=== PATIENT | male | born 1965 | race Caucasian/White ===

== ENCOUNTER 2016-11-29 14:10 | Emergency (ER) | payer SELFPAY ==
--- NOTE | 2016-11-29 14:15 | ER Document Report ---
ED General - General Stated Complaint: STROKE SYMPTOMS Time Seen by Provider: 11/29/16 14:11 Mode of Arrival: Medic Information source: Patient Cannot obtain history due to: Altered mental status Notes: 51-year-old male presents with complaints of sudden onset right-sided deficits altered mental status nausea vomiting hypertension. Last known well approximately 2 hours ago, history of [place] - HPI Onset: Just prior to arrival Onset/Duration: Sudden Quality of pain: No pain Severity: Severe Pain Level: Denies Associated symptoms: Nausea, Vomiting, Weakness Exacerbated by: Denies Relieved by: Denies Similar symptoms previously: No Recently seen / treated by doctor: No - Related Data Allergies/Adverse Reactions: diphenhydramine HCl [From Benadryl] Allergy (Severe, Verified 05/05/16 16:38) altered mental status Past Medical History - Social History Smoking Status: Never Smoker Cigarette use (# per day): No Chew tobacco use (# tins/day): No Smoking Education Provided: No Family History: Reviewed & Not Pertinent Review of Systems - Review of Systems Notes: PHYSICAL EXAMINATION: GENERAL: Well-apaltered HEAD: Atraumatic, normocephalic. EYES: Pupils equal round and reactive to light, extraocular movements intact, sclera anicteric, conjunctiva are normal. ENT: Nares patent, oropharynx clear without exudates. Moist mucous membranes. NECK: Normal range of motion, supple without lymphadenopathy LUNGS: Breath sounds clear to auscultation bilaterally and equal. No wheezes rales or rhonchi. HEART: Regular rate and rhythm without murmurs ABDOMEN: Soft, nontender, nondistended abdomen. No guarding, no rebound. No masses appreciated. Musculoskeletal: right arm and leg defecit NEUROLOGICAL: NIH score per charting SKIN: Warm, Dry, normal turgor, no rashes or lesions noted. -: Yes ROS unobtainable due to patient's medical condition Physical Exam - Vital signs Vitals: Resp BP Pulse Ox 11 L 157/110 H 99 11/29/16 14:20 11/29/16 14:20 11/29/16 14:20 Course - Re-evaluation Re-evalutation: 11/29/16 14:53 Patient presents with obvious strokelike symptoms, he has complete right-sided deficit is obtunded, with 's permission after explaining risks and benefits of alteplase she would like the medication given and I believe this is appropriate 11/29/16 15:[address] Wyatt who will accept patent for transfer. 11/29/16 15:53 Dr Carroll neurology requests cta head neck 11/29/16 16:[address] Scottie sidhu her request patient just be sent over without a CTA , patient unfortunately is was already in CAT scan, 11/29/16 16:33 Helicopter crew has landed patient will be transported repeat NIH is 25 - Vital Signs Vital signs: Temp Pulse Resp BP Pulse Ox 85 16 138/92 H 99 11/29/16 15:45 11/29/16 15:45 11/29/16 15:45 11/29/16 15:45 - Laboratory Result Diagrams: 11/29/16 14:25 11/29/16 14:25 Laboratory results interpreted by me: 11/29/16 11/29/16 14:24 14:25 Glucose 142 H POC Glucose 142 H Creatine Kinase 173 H - Diagnostic Test Radiology reviewed: Image reviewed, Reports reviewed - EKG Interpretation by Me EKG shows normal: Sinus rhythm, [place], Intervals, QRS Complexes Critical Care Note - Critical Care Note Total time excluding time spent on procedures (mins): 88 Comments: 88 minutes of critical care time spent in direct contact evaluating and reevaluating the patient, treating symptoms, reviewing labs and studies and speaking with family and consultants excluding any procedures Discharge - Discharge Clinical Impression: Acute cerebrovascular accident (CVA) Condition: Critical Disposition: [facility] ED NIH Stroke Scale - NIH Stroke Scale When completed:: Before Alteplase *: 1. NIH scale should be completed with appropriate accompanying assessment tools. *: 2. The NIH should reflect what the patient is capable of doing and should not be coached by the clinician. 1a. Level of Consciousness: 0=Alert;keenly responsive -: 1=Drowsy -: 2=Obtunded -: 3=Coma/unresponsive or reflex to noxious stimuli. 1a. Responses: 2 1b. Orientation Questions: a. What month is it? -: b. How old are you? -: 0=Answers both questions correctly. -: 1=Answers one question correctly or patient is intubated or has orotracheal trauma. -: 2=Answers neither question correctly. 1b. Responses: 2 1c. Response to commands: a. Open and close eyes? -: b. Graining Operator and release hand? -: Credit is given despite weakness. Demonstration of task is permitted. Substitute command if hands cannot be used. -: 0=Performs both tasks correctly -: 1=Performs one task correctly -: 2=Performs neither task correctly 1c. Responses: 2 2. Gaze: Establish eye contact and instruct patient to "Follow my finger" -: 0=Normal -: 1=Partial gaze palsy. Gaze is abnormal in one or both eyes, but where forced deviation or total gaze paresis is not present. -: 2=Forced deviation or total gaze paresis. 2. Responses: 2 3. Visual Lam: Sees fingers in all four quadrants. -: 0=No visual loss. -: 1=Partial hemianopsia. -: 2=Complete hemianopsia. -: 3=Bilateral hemianopsia (including Cortical blindness) 3. Responses: 2 4. Facial Movement: Instruct patient to: -: a. Show me your teeth -: b. Raise your eyebrows -: c. Close your eyes -: d. Smile -: 0=Normal symmetrical movement -: 1=Minor paralysis (flattened nasolabial fold, asymmetry on smiling). -: 2=Partial paralysis (total or near total paralysis of lower face). -: 3=Complete paralysis of upper and lower face 4. Responses: 2 5. Motor functions (left arm): Alternate sides and extend each arm with palms down (90 degrees if sitting or 45 degrees for supine). -: 0=No drift;limb holds for full 10 seconds. -: 1=Drift; limb holds but drifts down before full 10 seconds, but does not hit bed. -: 2=Some effort against gravity; limb cannot get to or maintain position. -: 3=No effort against gravity; limb falls. -: 4=No movement. -: UN=Amputation, joint fusion, explain in comments. 5. Responses (left arm): 0 5. Motor Functions (right arm): Alternate sides and extend each arm with palms down (90 degrees if sitting or 45 degrees for supine). -: 0=No drift;limb holds for full 10 seconds. -: 1=Drift; limb holds but drifts down before full 10 seconds, but does not hit bed. -: 2=Some effort against gravity; limb cannot get to or maintain position. -: 3=No effort against gravity; limb falls. -: 4=No movement. -: UN=Amputation, joint fusion, explain in comments. 5. Responses (right arm): 4 6. Motor Functions (left leg): With patient lying supine, alternate sides and extend each leg (30 degrees always while supine). -: 0=No drift, leg holds position for full 5 seconds -: 1=Drift; leg falls before full 5 seconds but does not hit bed. -: 2=Some effort against gravity, leg falls to bed but some effort against gravity. -: 3=No effort against gravity, leg falls to bed immediately. -: 4=No movement. -: UN=Amputation, joint fusion; explain in comments. 6. Responses (left leg): 0 6. Motor Functions (right leg): With patient lying supine, alternate sides and extend each leg (30 degrees always while supine). -: 0=No drift, leg holds position for full 5 seconds -: 1=Drift; leg falls before full 5 seconds but does not hit bed. -: 2=Some effort against gravity, leg falls to bed but some effort against gravity. -: 3=No effort against gravity, leg falls to bed immediately. -: 4=No movement. -: UN=Amputation, joint fusion; explain in comments. 6. Responses (right leg): 4 7. Limb Ataxia: With eyes open instruct patient to: -: a. "Touch your finger to your nose". -: b. "Touch your heel to your high" -: 0=Absent -: 1=Present in one limb. -: 2=Present in two limbs. -: UN=Amputation or joint fusion; explain in comments. 7. Responses: 1 7. If ataxia present choose as appropriate: Right arm, Right leg 8. Sensory: Test sensation using pinprick or noxious stimuli. Test as many body parts as possible. -: 0=Normal;no sensory loss -: 1=Mile to moderate sensory loss (patient feels pin prick but is less sharp on affected side). -: 2=Severe or total sensory loss. 8. Responses: 1 9. Best Language: Instruct patient to: -: a. "Describe what you see in this picture." -: b. "Name the items in this picture." -: c. "Read these sentences." -: 0=No aphasia, normal -: 1=Mild to moderate aphasia. -: 2=Severe aphasia -: 3=Mute, global aphasia, no usable speech or auditory comprehension. 9. Responses: 3 10. Articulation, Dysarthia: Instruct patient to: -: "Read these words" or "Repeat these words" -: 0=Normal -: 1=Mild to moderate; patient may slur some words but can be understood without difficulty. -: 2=Severe; patients speech so slurred as to be unintelligible in the absence of dysphasia. -: UN=Intubated or other physical barrier, explain in comments. 10. Responses: 2 11. Extinction or inattention: 0=No abnormality -: 1= Visual, tactile, auditory, spatial, or personal inattention or extinction to bilateral simulation in one or the sensory modalities. -: 2=Profound pat-inattention or pat-inattention to more than one modality; does not recognize own hand. 11. Responses: 2 Total Score: 29
--- NOTE | 2016-11-29 14:25 | RADIOLOGY REPORT (SQ) ---
EXAM DESCRIPTION: CT HEAD WITHOUT COMPLETED DATE/TIME: 11/29/2016 2:16 pm REASON FOR STUDY: right side paralysis COMPARISON: None. TECHNIQUE: Axial images acquired through the brain without intravenous contrast. Images reviewed wi th bone, brain and subdural windows. Images stored on PACS. All CT scanners at this facility use dose modulation, iterative reconstruction, and/or weight based d osing when appropriate to reduce radiation dose to as low as reasonably achievable (ALARA). [facility]: Dose Right [facility]: CareDose [facility]: Dose Right [facility]: Teradose 4D [facility]: [employer] RADIATION DOSE: 64.61 mGy. LIMITATIONS: None. FINDINGS: VENTRICLES: Normal size and contour. CEREBRUM: No masses. No hemorrhage. No midline shift. Normal huff/white matter differentiation. N o evidence for acute infarction. CEREBELLUM: No masses. No hemorrhage. No alteration of density. No evidence for acute infarction. EXTRAAXIAL SPACES: No fluid collections. No masses. ORBITS AND GLOBE: No intra- or extraconal masses. Normal contour of globe without masses. CALVARIUM: No fracture. PARANASAL SINUSES: No fluid or mucosal thickening. SOFT TISSUES: No mass or hematoma. OTHER: No other significant finding. IMPRESSION: NORMAL BRAIN CT WITHOUT CONTRAST. COMMENT: Pertinent findings on the imaging study reported as a CRITICAL RESULT to ULICES CATHERINE DO at14:11 on 11/29/2016. Category of Critical Result: CT stroke alert TECHNICAL DOCUMENTATION: JOB ID: [id number] Quality ID # [id number]: Final reports with documentation of one or more dose reduction techniques (e.g., Au tomated exposure control, adjustment of the mA and/or kV according to patient size, use of iterative reconstruction technique) 2010 [employer]- All Rights Reserved
--- NOTE | 2016-11-29 14:26 | RADIOLOGY REPORT (SQ) ---
EXAM DESCRIPTION: CHEST SINGLE VIEW COMPLETED DATE/TIME: 11/29/2016 2:17 pm REASON FOR STUDY: right side paralysis COMPARISON: None. EXAM PARAMETERS: NUMBER OF VIEWS: One view. TECHNIQUE: Single frontal radiographic view of the chest acquired. RADIATION DOSE: NA LIMITATIONS: None. FINDINGS: LUNGS AND PLEURA: No opacities, masses or pneumothorax. No pleural effusion. MEDIASTINUM AND HILAR STRUCTURES: No masses. Contour normal. HEART AND VASCULAR STRUCTURES: Heart normal in size. Normal vasculature. BONES: No acute findings. HARDWARE: None in the chest. OTHER: No other significant finding. IMPRESSION: NO ACUTE RADIOGRAPHIC FINDING IN THE CHEST. TECHNICAL DOCUMENTATION: JOB ID: [id number]
[2016-11-29 14:39] LABS: ABSOLUTE LYMPHOCYTES (AUTO) 1.6 10^3/uL (0.5-4.7); ABSOLUTE MONOCYTES (AUTO) 0.9 10^3/uL (0.1-1.4); ABSOLUTE NEUT (AUTO) 6.1 10^3/uL (1.7-8.2); BASOPHILS % (AUTO) 0.5 % (0-2); EOSINOPHILS % (AUTO) 0.2 % (0-6); HEMATOCRIT 49.3 % (37.9-51.0); HEMOGLOBIN 16.8 g/dL (13.5-17.0); HGB HCT DIFFERENCE 1.1; MEAN CORPUSCULAR HEMOGLOBIN 32.1 pg (27.0-33.4); MEAN CORPUSCULAR HGB CONC 34.1 g/dL (32.0-36.0); MEAN CORPUSCULAR VOLUME 94 fl (80-97); RED BLOOD COUNT 5.23 10^6/uL (4.35-5.55); RED CELL DISTRIBUTION WIDTH 13.1 % (11.5-14.0); SEGMENTED NEUTROPHILS % (AUTO) 70.3 % (42-78); WHITE BLOOD COUNT 8.7 10^3/uL (4.0-10.5)
[2016-11-29 14:43] LABS: PROTHROMBIN TIME 13.4 SEC (11.4-15.4)
[2016-11-29 14:44] LABS: PARTIAL THROMBOPLASTIN TIME 29.6 SEC (23.5-35.8)
[2016-11-29 14:51] LABS: ALANINE AMINOTRANSFERASE 38 U/L (21-72); ALBUMIN 4.7 g/dL (3.5-5.0); ALKALINE PHOSPHATASE 83 U/L (38-126); ANION GAP 13 (5-19); ASPARTATE AMINO TRANSFERASE 30 U/L (17-59); BILIRUBIN,DIRECT 0.4 mg/dL (0.0-0.4); BILIRUBIN,TOTAL 1.1 mg/dL (0.2-1.3); BLOOD UREA NITROGEN 12 mg/dL (7-20); CALCIUM 9.6 mg/dL (8.4-10.2); CARBON DIOXIDE 23 mmol/L (22-30); CHLORIDE 103 mmol/L (98-107); CREATINE KINASE 173 U/L (55-170); CREATININE RESULT 0.94 mg/dL (0.52-1.25); GLUCOSE 142 mg/dL (75-110); SODIUM 138.6 mmol/L (137-145); TOTAL PROTEIN 7.7 g/dL (6.3-8.2)
[2016-11-29] MEDS ORDERED: ALTEPLASE INJ 100 MG VIAL ONE (14:55)
[2016-11-29 15:06] LABS: CREATINE KINASE MB 0.83 ng/mL (<4.55)
[2016-11-29 15:08] LABS: TROPONIN I < 0.012 ng/mL
--- NOTE | 2016-11-29 17:08 | RADIOLOGY REPORT (SQ) ---
EXAM DESCRIPTION: CTA HEAD; CTA NECK COMPLETED DATE/TIME: 11/29/2016 4:39 pm REASON FOR STUDY: right sided deficit COMPARISON: None. TECHNIQUE: Post IV contrast scanning, thin section axial imaging from the aortic arch through the br ain and [place], to evaluate the arterial structures. Source and MIP images are saved and r eviewed on PACS. Advanced 3D imaging as volume-rendering, MIPs, SSD performed? yes All CT scanners at this facility use dose modulation, iterative reconstruction, and/or weight based d osing when appropriate to reduce radiation dose to as low as reasonably achievable (ALARA). [facility]: Dose Right [facility]: CareDose [facility]: Dose Right [facility]: Teradose 4D [facility]: [employer] CONTRAST TYPE AND DOSE: contrast/concentration: Isovue 370.00 mg/ml; Total Contrast Delivered: 100.0 ml; Total Saline Delivered: 70.0 ml RENAL FUNCTION: None required. The patient is less than 50 years old. LIMITATIONS: None. FINDINGS: EXTRACRANIAL CIRCULATION: Visualized aortic arch, proximal great vessels, right and left subclavian, right and left common flynn tid arteries are all normal. Carotid bifurcations are widely patent. Cervical internal carotid arteries are normal, no dissection. Vertebral arteries are patent from their origins through the intracranial portions. Codominant verte bral arteries. Soft tissues in the field of view of the extracranial circulation are unremarkable. [place]: The bilateral high cervical, petrous, parasellar, and para clinoid ICAs are normal. Normal ophthalmi c artery enhancement bilaterally. There is symmetric contrast enhancement of normal anterior cerebral arteries bilaterally. Right middle cerebral artery and its branches are widely patent. origin right posterior cerebr al artery which is widely patent. Left middle cerebral artery is widely patent. Perisylvian branches of the left middle cerebral arter y are also patent. Small left posterior communicating artery. Normal enhancement of the distal intracranial vertebral arteries, bilateral posterior inferior cerebe llar arteries, anterior inferior cerebellar arteries, superior cerebellar arteries, and posterior cer ebral arteries. No CT evidence of dural venous sinus thrombosis Post contrasted images of the brain, orbits, paranasal sinuses, unremarkable. This report was discussed with Dr. Strong, 1630 hours, 11/29/2016. IMPRESSION: NO CTA EVIDENCE OF STENOSIS OR ANEURYSM OF THE [place]. NO CTA EVIDENCE OF CAROTID DISSECTION OR FLOW SIGNIFICANT STENOSIS AT THE CAROTID BIFURCATIONS VERTEBROBASILAR SYSTEM PATENT. TECHNICAL DOCUMENTATION: JOB ID: [id number] Quality ID # [id number]: Final reports with documentation of one or more dose reduction techniques (e.g., Au tomated exposure control, adjustment of the mA and/or kV according to patient size, use of iterative reconstruction technique) 2010 [employer]- All Rights Reserved
--- NOTE | 2016-11-29 17:08 | RADIOLOGY REPORT (SQ) ---
EXAM DESCRIPTION: CTA HEAD; CTA NECK COMPLETED DATE/TIME: 11/29/2016 4:39 pm REASON FOR STUDY: right sided deficit COMPARISON: None. TECHNIQUE: Post IV contrast scanning, thin section axial imaging from the aortic arch through the br ain and [place] of [place], to evaluate the arterial structures. Source and MIP images are saved and r eviewed on PACS. Advanced 3D imaging as volume-rendering, MIPs, SSD performed? yes All CT scanners at this facility use dose modulation, iterative reconstruction, and/or weight based d osing when appropriate to reduce radiation dose to as low as reasonably achievable (ALARA). [facility]: Dose Right [facility]: CareDose [facility]: Dose Right [facility]: Teradose 4D [facility]: [employer] CONTRAST TYPE AND DOSE: contrast/concentration: Isovue 370.00 mg/ml; Total Contrast Delivered: 100.0 ml; Total Saline Delivered: 70.0 ml RENAL FUNCTION: None required. The patient is less than 50 years old. LIMITATIONS: None. FINDINGS: EXTRACRANIAL CIRCULATION: Visualized aortic arch, proximal great vessels, right and left subclavian, right and left common flynn tid arteries are all normal. Carotid bifurcations are widely patent. Cervical internal carotid arteries are normal, no dissection. Vertebral arteries are patent from their origins through the intracranial portions. Codominant verte bral arteries. Soft tissues in the field of view of the extracranial circulation are unremarkable. [place]: The bilateral high cervical, petrous, parasellar, and para clinoid ICAs are normal. Normal ophthalmi c artery enhancement bilaterally. There is symmetric contrast enhancement of normal anterior cerebral arteries bilaterally. Right middle cerebral artery and its branches are widely patent. origin right posterior cerebr al artery which is widely patent. Left middle cerebral artery is widely patent. Perisylvian branches of the left middle cerebral arter y are also patent. Small left posterior communicating artery. Normal enhancement of the distal intracranial vertebral arteries, bilateral posterior inferior cerebe llar arteries, anterior inferior cerebellar arteries, superior cerebellar arteries, and posterior cer ebral arteries. No CT evidence of dural venous sinus thrombosis Post contrasted images of the brain, orbits, paranasal sinuses, unremarkable. This report was discussed with Dr. Strong, 1630 hours, 11/29/2016. IMPRESSION: NO CTA EVIDENCE OF STENOSIS OR ANEURYSM OF THE [place]. NO CTA EVIDENCE OF CAROTID DISSECTION OR FLOW SIGNIFICANT STENOSIS AT THE CAROTID BIFURCATIONS VERTEBROBASILAR SYSTEM PATENT. TECHNICAL DOCUMENTATION: JOB ID: [id number] Quality ID # [id number]: Final reports with documentation of one or more dose reduction techniques (e.g., Au tomated exposure control, adjustment of the mA and/or kV according to patient size, use of iterative reconstruction technique) 2010 [employer]- All Rights Reserved
[2016-11-29 17:09] VITALS: BP 154/101
--- NOTE | 2016-11-29 18:48 | EKG REPORT ---
SEVERITY:- OTHERWISE NORMAL ECG - SINUS RHYTHM BORDERLINE RIGHT AXIS DEVIATION : Confirmed by: Kristofer Olmos MD 29-Nov-2016 18:47:54
== END 2016-11-29 16:55 | disposition short-term general hospital (02) ==
LOC: MERGE 14:10 → ER 14:10
DX: I63.9 Cerebral infarction, unspecified (principal); R41.82 Altered mental status, unspecified; R11.2 Nausea with vomiting, unspecified; I10 Essential (primary) hypertension
CPT/HCPCS: 36415; 70450; 70496; 70498; 71010; 80053; 82550; 82553; 82962; 84484; 85025; 85610; 85730; 93005; 93010; 96365; 99291; 99292

== ENCOUNTER 2016-12-22 12:24 | Emergency (ER) | payer SELFPAY ==
--- NOTE | 2016-12-22 12:38 | ER Document Report ---
ED Neuro Symptoms/Deficit - General Information source: Patient Notes: Patient is a 51 year old male who presents to the ED with complaints of right sided weakness, blurred vision and a headache. Patient states that he was in the ED on 11/29 with a CVA, TPA was administered and he was flown to [facility] in [place] and when they performed surgery to remove the clot they could not find it and patients reports that they were told the TPA dissolved it. Patient was discharged 3-4 days later with no residual deficits. Patient states today he had a sudden onset headache that felt like a pressure in his head, tingling in bilateral lower and upper extremities, and states his vision "went black". Patient has right sided weakness. TRAVEL OUTSIDE OF THE [place] IN LAST 30 DAYS: No - HPI Patient complains to provider of: Vision Changes, Weakness New weakness: RUE Associated symptoms: Other - see above <INNA CHOWDARY - Last Filed: 12/22/16 13:53> <GARY FARNSWORTH - Last Filed: 12/22/16 15:37> - General Chief Complaint: S/S of Possible Stroke Stated Complaint: POSSIBLE STROKE Time Seen by Provider: 12/22/16 12:36 - Related Data Allergies/Adverse Reactions: diphenhydramine HCl [From Benadryl] Allergy (Severe, Verified 12/22/16 14:56) altered mental status Home Medications: Current Home Medications No Home Medications 12/22/16 [History] Past Medical History - General Information source: Patient - Social History Smoking Status: Never Smoker Family History: Reviewed & Not Pertinent - Past Medical History Cardiac Medical History: Denies: Hx Coronary Artery Disease, Hx Heart Attack, Hx Hypertension Pulmonary Medical History: Denies: Hx Asthma, Hx Bronchitis, Hx COPD, Hx Pneumonia Neurological Medical History: Denies: Hx Cerebrovascular Accident, Hx Seizures Musculoskeltal Medical History: Denies Hx Arthritis Past Surgical History: Reports: Hx Orthopedic Surgery - fusion in L4-5?. Denies : Hx Pacemaker - Immunizations Immunizations up to date: Yes Hx Diphtheria, Pertussis, Tetanus Vaccination: Yes <INNA CHOWDARY - Last Filed: 12/22/16 13:53> Review of Systems - Review of Systems Constitutional: See HPI, Weakness EENT: See HPI, Blurred vision Cardiovascular: No symptoms reported Respiratory: No symptoms reported Gastrointestinal: No symptoms reported Genitourinary: No symptoms reported Male Genitourinary: No symptoms reported Musculoskeletal: No symptoms reported Skin: No symptoms reported Hematologic/Lymphatic: No symptoms reported Neurological/Psychological: See HPI, Weakness, Headaches, Tingling, Tremor <INNA CHOWDARY - Last Filed: 12/22/16 13:53> Physical Exam - General General appearance: Alert - HEENT Head: Normocephalic, Atraumatic Eyes: Other - photophobic Extraocular movements intact: Yes Pupils: PERRL - Respiratory Respiratory status: No respiratory distress Breath sounds: Normal - Cardiovascular Rhythm: Regular Heart sounds: Normal auscultation Murmur: No - Abdominal Inspection: Normal Distension: No distension Tenderness: Nontender - Back Back: Normal - Extremities General upper extremity: No: Normal strength - 2/4 General lower extremity: Normal inspection, Normal ROM - Neurological Neuro grossly intact: Yes Cognition: Normal Orientation: AAOx4 [place] Coma Scale Eye Opening: Spontaneous [place] Coma Scale Verbal: Oriented [place] Coma Scale Motor: Obeys Commands Evonne Coma Scale Total: 15 Speech: Normal Motor strength normal: RUE - 2/4 Sensory: Normal - Psychological Associated symptoms: Normal affect, Normal mood - Skin Skin Temperature: Warm Skin Moisture: Dry Skin Color: Normal <INNA CHOWDARY - Last Filed: 12/22/16 13:53> Course - Laboratory Result Diagrams: 12/22/16 12:40 12/22/16 12:40 - Consults [facility] Transfer Line Time consulted: 12:53 Reason for consultation: 12/22/16 1253 Discussed patient with transfer line. I requested a neurologist to call me back. Dr. Dutta, hospitalist Time consulted: 13:18 Reason for consultation: 12/22/16 13:18 Discussed patient with hospitalist. He stated that they are on [facility] and have no beds available. Dr. Holder, neurologist. Time consulted: 13:29 Reason for consultation: 12/22/16 13:29 Discussed patient. He states that he feels this is a complex migraine. He suggests getting an MRI. <INNA CHOWDARY - Last Filed: 12/22/16 13:53> - Re-evaluation Re-evalutation: 12/22/16 13:37 Patient was brought in via private vehicle with straight back to CAT scan with strokelike symptoms. Immediately met the patient at the CT scanner when he was undergoing a CT of his head. He had a history of a CVA suspected 21 days ago came to this emergency department and a CTA of the head and neck which was negative was given thrombolytics and transferred to [place]. According to the [place] neurologist advises spoke with they thought that there was something abnormal in the angiograms they went in to potentially extract a clot but was completely negative. they had also done an MRI which was completely negative. They thought that it was actually complex migraines but the patient signed out AGAINST MEDICAL ADVICE in the middle the night before they can communicate any of this. He also noted that he signed out AGAINST MEDICAL ADVICE multiple times in the past and has been noncompliant. reports that he is generally a heavy drinker and smoker but since this event took place he is stop smoking and occasionally drinks alcohol. He developed a headache today associated with blurred vision and tingling in the right upper extremity. He is not currently weak in the right upper extremity has a GCS of 15 on reexamination is awake and alert complaining of a headache. states he had headaches in his 20s which he took multiple medications without relief. He denies any chest pain shortness breath nausea vomiting diarrhea but is photophobic on eye examination. I contacted [place] originally and spoke with Dr. Emani HEREDIA ON hospitalist who recommended I talk with neurology. I talked to Dr. Butterfield in neurology at 1329 who reviewed the evaluation he had at [facility] with me and said he suspected this was a complex migraine wanted me to treat him like a migraine and do an MRI of his brain here, and if negative discharge him home with follow up with neurology. At this point I have ordered Toradol and Reglan patient is allergic to Benadryl and have ordered a MRI of the brain. The neurologist does not feel that thrombolytics are indicated in this situation unless there is some abnormality that is reported on the MRI. 12/22/16 15:04 Acute MRI of the head is negative patient's headache is improved he has complete normal function of his right upper extremity after treatment with migraine medication. He is stable for discharge no neurological deficits awake and alert. He is going to follow-up with Dr. Morel whom I guess his daughter has seen in the past. And discussed reasons for ED return sooner - Laboratory Result Diagrams: 12/22/16 12:40 12/22/16 12:40 Laboratory results interpreted by me: 12/22/16 12/22/16 12:40 12:49 Glucose 119 H POC Glucose 116 H AST 81 H ALT 147 H Creatine Kinase 45 L - EKG Interpretation by Me Additional EKG results interpreted by me: 12/22/16 13:40 EKG interpreted by myself to reveal sinus rhythm at 79 bpm with no acute ST segment elevation or depression <GARY FARNSWORTH - Last Filed: 12/22/16 15:37> Critical Care Note - Critical Care Note Total time excluding time spent on procedures (mins): 60 <GARY FARNSWORTH - Last Filed: 12/22/16 15:37> ED [employer]/Exc Criteria ED NIH Stroke Scale Discharge <INNA CHOWDARY - Last Filed: 12/22/16 13:53> - Discharge Scribe Attestation: 12/22/16 15:07 I personally performed the services described in the documentation reviewed the documentation recorded by my scribe in my presence and it accurately and completely records my words and actions <GARY FARNSWORTH - Last Filed: 12/22/16 15:37> - Discharge Clinical Impression: complex migraine Condition: Stable Disposition: HOME, SELF-CARE Additional Instructions: Migraine Headache The physician feels that your symptoms are due to a migraine attack. Migraines are caused by changes in the blood vessels of the head. Arteries go into spasm, often causing warning symptoms that a headache may begin soon. As the spasm goes away, the vessels dilate and throb, causing the pounding pain of a migraine headache. Migraines often cause nausea and vomiting. The treatment of headaches varies with severity and cause of pain. Not all headaches need pain shots -- in fact, there is evidence that using narcotics for headaches may make them worse in the long run. The physician will determine the therapy that's in your best interest for this particular headache. Medications are available that may prevent migraines, or stop them as they first occur. If one medication is not helpful, try another. If migraines are frequent, be patient -- follow the doctor's recommendations. Call the physician if you are worsening, or if new symptoms arise. Referrals: ANTONIO MOREL MD [ACTIVE STAFF] - Follow up in 3-5 days (Return to the emergency department sooner for increasing worsening or new symptoms) Scribe Documentation - Scribe Written by Xiomy:: xiomy Kimbrough, 12/22/2016, 1336 acting as scribe for :: David <INNA CHOWDARY - Last Filed: 12/22/16 13:53>
[2016-12-22 12:54] LABS: PROTHROMBIN TIME 12.2 SEC (11.4-15.4)
[2016-12-22 12:55] LABS: ABSOLUTE LYMPHOCYTES (AUTO) 1.5 10^3/uL (0.5-4.7); ABSOLUTE MONOCYTES (AUTO) 0.8 10^3/uL (0.1-1.4); ABSOLUTE NEUT (AUTO) 6.9 10^3/uL (1.7-8.2); BASOPHILS % (AUTO) 0.4 % (0-2); EOSINOPHILS % (AUTO) 0.3 % (0-6); HEMATOCRIT 48.3 % (37.9-51.0); HEMOGLOBIN 16.5 g/dL (13.5-17.0); HGB HCT DIFFERENCE 1.2; LYMPHOCYTES % (AUTO) 16.1 % (13-45); MEAN CORPUSCULAR HEMOGLOBIN 32.2 pg (27.0-33.4); MEAN CORPUSCULAR HGB CONC 34.1 g/dL (32.0-36.0); MEAN CORPUSCULAR VOLUME 94 fl (80-97); MONOCYTES % (AUTO) 8.9 % (3-13); PARTIAL THROMBOPLASTIN TIME 34.8 SEC (23.5-35.8); RED BLOOD COUNT 5.13 10^6/uL (4.35-5.55); RED CELL DISTRIBUTION WIDTH 12.8 % (11.5-14.0); SEGMENTED NEUTROPHILS % (AUTO) 74.3 % (42-78); WHITE BLOOD COUNT 9.3 10^3/uL (4.0-10.5)
--- NOTE | 2016-12-22 12:55 | RADIOLOGY REPORT (SQ) ---
EXAM DESCRIPTION: CT HEAD WITHOUT COMPLETED DATE/TIME: 12/22/2016 12:37 pm REASON FOR STUDY: stroke alert, perez, vision changes, right side weakn COMPARISON: CTA neck 11/29/2016 CT brain 11/29/2016, 05/05/2015 TECHNIQUE: Axial images acquired through the brain without intravenous contrast. Images reviewed wi th bone, brain and subdural windows. Images stored on PACS. All CT scanners at this facility use dose modulation, iterative reconstruction, and/or weight based d osing when appropriate to reduce radiation dose to as low as reasonably achievable (ALARA). [facility]: Dose Right [facility]: CareDose [facility]: Dose Right [facility]: Teradose 4D [facility]: Smart TrueAbility RADIATION DOSE: Up-to-date CT equipment and radiation dose reduction techniques were employed. CTDIv ol: 64.6 mGy. DLP: 1163 mGy-cm. mGy. LIMITATIONS: None. FINDINGS: VENTRICLES: Normal size and contour. CEREBRUM: No masses. No hemorrhage. No midline shift. Normal huff/white matter differentiation. N o evidence for acute infarction. CEREBELLUM: No masses. No hemorrhage. No alteration of density. No evidence for acute infarction. EXTRAAXIAL SPACES: No fluid collections. No masses. ORBITS AND GLOBE: No intra- or extraconal masses. Normal contour of globe without masses. CALVARIUM: No fracture. PARANASAL SINUSES: No fluid or mucosal thickening. SOFT TISSUES: No mass or hematoma. OTHER: No other significant finding. IMPRESSION: NORMAL BRAIN CT WITHOUT CONTRAST. COMMENT: Pertinent findings on the imaging study reported as a CRITICAL RESULT to GARY FARNSWORTH MD at1 2:40 on 12/22/2016. Category of Critical Result: Stroke CT stroke alert TECHNICAL DOCUMENTATION: JOB ID: [id number] Quality ID # [id number]: Final reports with documentation of one or more dose reduction techniques (e.g., Au tomated exposure control, adjustment of the mA and/or kV according to patient size, use of iterative reconstruction technique) 2010 [employer]- All Rights Reserved
[2016-12-22 13:09] LABS: ALANINE AMINOTRANSFERASE 147 U/L (21-72); ALBUMIN 4.9 g/dL (3.5-5.0); ALKALINE PHOSPHATASE 91 U/L (38-126); ANION GAP 11 (5-19); ASPARTATE AMINO TRANSFERASE 81 U/L (17-59); BILIRUBIN,DIRECT 0.3 mg/dL (0.0-0.4); BILIRUBIN,TOTAL 0.6 mg/dL (0.2-1.3); BLOOD UREA NITROGEN 13 mg/dL (7-20); CALCIUM 10.2 mg/dL (8.4-10.2); CARBON DIOXIDE 29 mmol/L (22-30); CHLORIDE 101 mmol/L (98-107); CREATINE KINASE 45 U/L (55-170); CREATININE RESULT 0.88 mg/dL (0.52-1.25); GLUCOSE 119 mg/dL (75-110); POTASSIUM 4.3 mmol/L (3.6-5.0); SODIUM 141.3 mmol/L (137-145)
[2016-12-22 13:21] LABS: TROPONIN I < 0.012 ng/mL
--- NOTE | 2016-12-22 13:31 | RADIOLOGY REPORT (SQ) ---
EXAM DESCRIPTION: CHEST SINGLE VIEW COMPLETED DATE/TIME: 12/22/2016 12:46 pm REASON FOR STUDY: stroke alert, perez, vision changes, right side weakn COMPARISON: CT angio chest 01/05/2016 EXAM PARAMETERS: NUMBER OF VIEWS: One view. TECHNIQUE: Single frontal radiographic view of the chest acquired. RADIATION DOSE: NA LIMITATIONS: None. FINDINGS: LUNGS AND PLEURA: No opacities, masses or pneumothorax. No pleural effusion. MEDIASTINUM AND HILAR STRUCTURES: No masses. Contour normal. HEART AND VASCULAR STRUCTURES: Heart normal in size. Normal vasculature. BONES: No acute findings. HARDWARE: None in the chest. OTHER: No other significant finding. IMPRESSION: NO ACUTE RADIOGRAPHIC FINDING IN THE CHEST. TECHNICAL DOCUMENTATION: JOB ID: [id number]
[2016-12-22 13:33] LABS: CREATINE KINASE MB 0.49 ng/mL (<4.55)
[2016-12-22] MEDS ORDERED: KETOROLAC TROMETHAMINE INJ/PF 30 MG/1 ML SDV IV ONE (13:35)
[2016-12-22] MEDS ORDERED: METOCLOPRAMIDE HCL INJ/PF 10 MG/2 ML SDV IV ONE (13:36)
--- NOTE | 2016-12-22 14:41 | RADIOLOGY REPORT (SQ) ---
EXAM DESCRIPTION: MRI HEAD WITHOUT COMPLETED DATE/TIME: 12/22/2016 2:23 pm REASON FOR STUDY: cva symptoms COMPARISON: CT brain 05/05/2015 CT brain 12/22/2016 CT angio [place] and neck 11/29/2016 TECHNIQUE: Multiplanar imaging includes non-contrasted T1, T2, FLAIR, and diffusion with ADC map seq uences. Images stored on PACS. LIMITATIONS: None. FINDINGS: ANATOMY: No anomalies. Normal vascular flow voids. Pituitary fossa normal. CSF SPACES: Normal in size and contour. No hemorrhage. CEREBRUM: Sulci and gyri normal in size and contour. Normal white matter signal on FLAIR imaging. No evidence of hemorrhage, mass, or extraaxial fluid collection. POSTERIOR FOSSA: No signal alteration. No hemorrhage. No edema, masses or mass effect. Internal dhara tory canals, cerebello-pontine angles, mastoids normal. DIFFUSION IMAGING: Negative for acute or sub-acute infarction. ORBITS: No masses. Globes normal. PARANASAL SINUSES: No fluid levels. Mucosa normal. OTHER: No other significant finding. IMPRESSION: NORMAL MRI OF THE BRAIN WITHOUT INTRAVENOUS GADOLINIUM CONTRAST. EVIDENCE OF ACUTE STROKE: NO. TECHNICAL DOCUMENTATION: JOB ID: [id number] [employer]- All Rights Reserved
--- NOTE | 2016-12-22 16:43 | EKG REPORT ---
SEVERITY:- NORMAL ECG - SINUS RHYTHM : Confirmed by: Kristofer Olmos MD 22-Dec-2016 16:43:15
[2016-12-22 16:59] VITALS: BP 128/92
== END 2016-12-22 15:45 | disposition home or self-care (01) ==
LOC: ER 12:24
DX: G43.909 Migraine, unspecified, not intractable, without status migrainosus (principal); R53.1 Weakness; H53.8 Other visual disturbances; Z86.73 Personal history of transient ischemic attack (TIA), and cerebral infarction without residual deficits
CPT/HCPCS: 93005; 99285; 96374; 96375; 36415; 82553; 82962; 82550; 85025; 85610; 85730; 80053; 84484; 70551; 71010; 70450; 93010; J1885; J2765

== ENCOUNTER 2017-04-08 11:58 | Emergency (ER) | payer SELFPAY ==
[2017-04-08] MEDS ORDERED: ONDANSETRON HCL INJ/PF 4 MG/2 ML SDV IV ONE (13:30)
[2017-04-08] MEDS ORDERED: MORPHINE SULFATE 10 MG/ML INJ IV ONE (13:30)
--- NOTE | 2017-04-08 13:31 | ER Document Report ---
ED Medical Screen (RME) - General Chief Complaint: Diarrhea Stated Complaint: FLU SYMPTOMS Time Seen by Provider: 04/08/17 13:29 Notes: Patient states that he has had diarrhea for about 1 week. He states he is concerned he may have C. difficile because his was recently diagnosed with this. Patient also states that he has had severe headaches. He states he has been told before that he has a history of complex migraine. He states he was seen here one time and diagnosed with a stroke and given TPA. He states when they did the interventional radiology procedure however they told him they saw no evidence of clots. He states he was told by neurologist that it may have been a stroke or could be a complex migraine. TRAVEL OUTSIDE OF THE [place] IN LAST 30 DAYS: No - Related Data Allergies/Adverse Reactions: diphenhydramine HCl [From Benadryl] Allergy (Severe, Verified 04/08/17 12:00) altered mental status Past Medical History - Past Medical History Cardiac Medical History: Denies: Hx Coronary Artery Disease, Hx Heart Attack, Hx Hypertension Pulmonary Medical History: Denies: Hx Asthma, Hx Bronchitis, Hx COPD, Hx Pneumonia Neurological Medical History: Reports: Hx Migraine. Denies: Hx Cerebrovascular Accident, Hx Seizures Musculoskeltal Medical History: Denies Hx Arthritis Past Surgical History: Reports: Hx Orthopedic Surgery - fusion in L4-5?, Hx Vascular Surgery - clot retrieval 21 days ago with no clot. Denies: Hx Pacemaker - Immunizations Immunizations up to date: Yes Hx Diphtheria, Pertussis, Tetanus Vaccination: Yes Physical Exam - Vital signs Vitals: Temp Pulse Resp BP Pulse Ox 98.2 F 65 16 141/88 H 96 04/08/17 12:02 04/08/17 12:02 04/08/17 12:02 04/08/17 12:02 04/08/17 12:02 Course - Vital Signs Vital signs: Temp Pulse Resp BP Pulse Ox 98.2 F 65 16 141/88 H 96 04/08/17 12:02 04/08/17 12:02 04/08/17 12:02 04/08/17 12:02 04/08/17 12:02
[2017-04-08] MEDS: NORMAL SALINE 1000 ML 1,000 ML IV PRN ×2 (14:23→14:27)
[2017-04-08 14:26] LABS: ABSOLUTE LYMPHOCYTES (AUTO) 1.7 10^3/uL (0.5-4.7); ABSOLUTE MONOCYTES (AUTO) 0.8 10^3/uL (0.1-1.4); ABSOLUTE NEUT (AUTO) 7.1 10^3/uL (1.7-8.2); BASOPHILS % (AUTO) 0.4 % (0-2); EOSINOPHILS % (AUTO) 0.3 % (0-6); HEMATOCRIT 46.9 % (37.9-51.0); HEMOGLOBIN 16.1 g/dL (13.5-17.0); HGB HCT DIFFERENCE 1.4; LYMPHOCYTES % (AUTO) 17.6 % (13-45); MEAN CORPUSCULAR HEMOGLOBIN 31.6 pg (27.0-33.4); MEAN CORPUSCULAR HGB CONC 34.4 g/dL (32.0-36.0); MEAN CORPUSCULAR VOLUME 92 fl (80-97); RED BLOOD COUNT 5.11 10^6/uL (4.35-5.55); SEGMENTED NEUTROPHILS % (AUTO) 73.7 % (42-78); WHITE BLOOD COUNT 9.7 10^3/uL (4.0-10.5)
--- NOTE | 2017-04-08 14:31 | ER Document Report ---
ED General - General Chief Complaint: Headache Stated Complaint: FLU SYMPTOMS Time Seen by Provider: 04/08/17 13:29 Notes: Patient is a 52-year-old male who presents emergency department complaining of headache for approximately 2 weeks it has been worse over the past couple of days with associated abdominal pain for a week. States his headache is in the back of his head but feels like his whole head is pressure with associated dizziness and vision changes. States he feels like he has squiggly lines coming across his eyes without halos. Admits to intermittent black spots as well. Regarding his abdominal pain states it is in and around his left bellybutton with radiation into his left lower quadrant. States been like this for about a week. Denies any diarrhea. States his stool has been formed. He denies any fever, chills, nausea, vomiting, diarrhea, constipation. Regarding patient's history. Patient states that he was diagnosed with complex hemiplegic migraines over the summer. Patient states that he did sign out AMA from [facility] and came here 2 weeks later the beginning of December where he was told that a previous hemiplegic migraine that was treated with TPA was indeed a migraine. Patient states that he is never followed up with a neurologist. States that he works but he does not have insurance and does not feel like he has needed to go since he is felt okay. His previous presentations have been with right-sided hemiplegia with right-sided facial droop. Has previously resolved with migraine treatment. TRAVEL OUTSIDE OF THE [place] IN LAST 30 DAYS: No - Related Data Allergies/Adverse Reactions: diphenhydramine HCl [From Benadryl] Allergy (Severe, Verified 04/08/17 12:00) altered mental status Past Medical History - Social History Smoking Status: Former Smoker Frequency of alcohol use: Occasional Drug Abuse: Marijuana Family History: Reviewed & Not Pertinent Patient has suicidal ideation: No Patient has homicidal ideation: No - Past Medical History Cardiac Medical History: Denies: Hx Coronary Artery Disease, Hx Heart Attack, Hx Hypertension Pulmonary Medical History: Denies: Hx Asthma, Hx Bronchitis, Hx COPD, Hx Pneumonia Neurological Medical History: Reports: Hx Migraine. Denies: Hx Cerebrovascular Accident, Hx Seizures Renal/ Medical History: Denies: Hx Peritoneal Dialysis Musculoskeltal Medical History: Denies Hx Arthritis Past Surgical History: Reports: Hx Orthopedic Surgery - fusion in L4-5?, Hx Vascular Surgery - clot retrieval 21 days ago with no clot. Denies: Hx Pacemaker - Immunizations Immunizations up to date: Yes Hx Diphtheria, Pertussis, Tetanus Vaccination: Yes Review of Systems - Review of Systems Constitutional: No symptoms reported Cardiovascular: No symptoms reported Respiratory: No symptoms reported Gastrointestinal: No symptoms reported Neurological/Psychological: See HPI -: Yes All other systems reviewed and negative Physical Exam - Vital signs Vitals: Temp Pulse Resp BP Pulse Ox 98.2 F 65 16 141/88 H 96 04/08/17 12:02 04/08/17 12:02 04/08/17 12:02 04/08/17 12:02 04/08/17 12:02 - General General appearance: Appears well, Alert In distress: None - HEENT Head: Normocephalic, Atraumatic Eyes: Normal Conjunctiva: Normal Extraocular movements intact: Yes Eyelashes: Normal Pupils: PERRL Fundascopic: Normal. No: Retinal detachment, Retinal hemorrhage Nerve palsy: No Visual reynoso normal: Yes Ears: Normal External canal: Normal. No: Cerumen impaction, Swollen Tympanic membrane: Normal. No: Bulging, Loss of landmarks, Perforation Mouth/Lips: Normal Mucous membranes: Normal - Respiratory Respiratory status: No respiratory distress Chest status: Nontender Breath sounds: Normal Chest palpation: Normal - Cardiovascular Rhythm: Regular Heart sounds: Normal auscultation, S1 appreciated, S2 appreciated Gallop: None auscultated Pulses: Normal: Radial, Dorsalis pedis Normal capillary refill: Yes - Abdominal Inspection: Normal Distension: No distension Bowel sounds: Normal Tenderness: Tender - superficial tendnerss around the umbilicus without swelling or hernia. No: McBurney's point, Guarding Organomegaly: No organomegaly - Back Back: Normal, Nontender, Other - No nuchal rigidity. Negative SLR bilaterally - Neurological Neuro grossly intact: Yes Cognition: Normal Orientation: AAOx4 [place] Coma Scale Eye Opening: Spontaneous Evonne Coma Scale Verbal: Oriented [place] Coma Scale Motor: Obeys Commands [place] Coma Scale Total: 15 Speech: Normal Cranial nerves: Normal. No: Facial palsy, Gaze palsy, Tongue deviation Cerebellar coordination: Normal. No: Gait ataxia, Finger-nose rhombey, Rapid alt. 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 No evidence of leukocytosis or anemia noted on CBC. Patient without fever. Chemistry is stable. CT the head negative for any evidence of bleed or stroke. Patient sent for CT the abdomen. 04/08/17 18:55 CT the abdomen and pelvis without any evidence of acute abdominal process. Patient's headache is improved but patient still admits to dizziness and vision changes. Patient negative for lateral nystagmus on exam. Given presentation is concerning for cerebellar symptoms will send for an MRI. MRI without evidence of acute intracranial process. No evidence of stroke, bleed, or concerns for encephalopathy. Patient treated with Imitrex in the department 04/08/17 20:00 Patient states his symptoms and dizziness is completely resolved after Imitrex. Much improved after Imitrex. He admits to mild tenderness over his left yazidi but otherwise he states he feels much much better. Will discharge home with a prescription for Imitrex and can follow-up with Dr. Morel tomorrow. Patient agrees with plan is stable for discharge Patient does not have any focal neurologic deficits, nuchal rigidity, vital signs are within normal limits no papilledema. Patient is otherwise no acute distress and hemodynamically stable. Low index for suspicion of acute subarachnoid hemorrhage, meningitis or mass. Low suspicion for acute life- threatening etiology with intact neuro exam therefore no additional imaging or laboratory testing is indicated. Will discharge patient home with strict follow -up - Vital Signs Vital signs: Temp Pulse Resp BP Pulse Ox 98.1 F 82 18 122/78 97 04/08/17 20:28 04/08/17 20:28 04/08/17 20:28 04/08/17 20:28 04/08/17 20:28 - Laboratory Result Diagrams: 04/08/17 14:15 04/08/17 14:15 Laboratory results interpreted by me: 04/08/17 04/08/17 13:53 14:15 Sodium 145.6 H Urine Ascorbic Acid 40 H - Diagnostic Test Radiology reviewed: Image reviewed, Reports reviewed Discharge - Discharge Clinical Impression: Headache Qualifiers: Headache type: unspecified Headache chronicity pattern: unspecified pattern Intractability: not intractable Qualified Code(s): R51 - Headache Condition: Stable Disposition: HOME, SELF-CARE Additional Instructions: HEADACHE: The physician does not feel that the headache you are experiencing has a serious underlying cause. Most headaches are due to emotional stress, with resultant muscle tension (tension headache). Occasionally, headaches are secondary to changes in the blood vessels of the scalp (vascular headache and migraine headache). Sometimes, a headache is the first symptom of another developing illness, such as a viral infection. You have no evidence of stroke, bleeding, meningitis, or other serious cause of your headache. The treatment of headaches varies with the severity and cause of the pain. Not all headaches need pain shots. In fact, there is evidence that using narcotics for headaches may make them worse in the long run. The physician will determine the therapy that's in your best interest. If you develop a fever, if the headache is different from any you've previously experienced, or if the headache progressively worsens, then call your physician at once or go to the emergency room. USE OF DIPHENHYDRAMINE: Diphenhydramine (Benadryl) is an antihistamine and has been recommended to help treat your headache and to prevent side effects of other medications used to treat headaches. The medication can be repeated four times daily. Age Elixir (12.5 mg/tsp) 25 mg pill adult 1-2 tabs Antihistamines may cause drowsiness, especially with the first dose. Do not operate machinery or drive while under the effects of the medication. Do not combine the medication with alcohol, or with any other medication without talking to your doctor. ANTINAUSEA MEDICATION: You have been given a medication to suppress nausea and vomiting. This type of medication can be given as a shot, pill, or suppository. It will usually last for many hours. Pills and shots usually last six to eight hours, suppositories last about 12 hours. For the typical illness, only one or two doses of the medication may be necessary. Mild lightheadedness may occur. This type of medicine can cause drowsiness. Do not drive or operate dangerous machinery while under its influence. Do not mix with alcohol. See your doctor at once if you have muscle spasms or tightness, or uncontrollable motions (particularly of the neck, mouth, or jaw). Persistent vomiting or severe lightheadedness should also be evaluated by the physician. TORADOL INJECTION: You have been given an injection of ketorolac tromethamine (Toradol). This is an excellent, safe drug for pain control. It also has potent antiinflammatory action. You should have significant pain relief within about one hour. Toradol is not addicting and is non-sedating. It does not interfere with driving or work. Call or return if you develop itching, hives, shortness of breath, or rash. PAIN MEDICATION INJECTION: You have received an injection of a pain medication. You should experience significant pain relief within 45 minutes. This drug is a narcotic - - it will impair your judgement, slow your reaction time and make you sleepy ( as well as relieve your pain). Narcotics also can cause nausea. You should not drive, work with machinery, or perform any task requiring mental alertness until all effects of the medication are gone -- six to eight hours. Do not take any alcohol, or sedatives, and do not take any other medication without checking with your physician. FOLLOW-UP CARE: If you have been referred to a physician for follow-up care, call the physician s office for an appointment as you were instructed or within the next two days. If you experience worsening or a significant change in your symptoms, notify the physician immediately or return to the Emergency Department at any time for re-evaluation. Prescriptions: Sumatriptan Succinate 50 mg PO ASDIR PRN #30 tablet PRN Reason: Referrals: ANTONIO MOREL MD [ACTIVE STAFF] [facility]NO [facility] - Follow up as needed [facility] [Provider Group] - Follow up as needed
[2017-04-08 14:32] LABS: AMORPHOUS SEDIMENT,URINE TRACE /HPF; APPEARANCE,URINE CLOUDY; BILIRUBIN,URINE NEGATIVE (NEGATIVE); GLUCOSE, URINE NEGATIVE (NEGATIVE); KETONES,URINE NEGATIVE (NEGATIVE); LEUKOCYTE ESTERASE,URINE NEGATIVE (NEGATIVE); NITRITE,URINE NEGATIVE (NEGATIVE); PROTEIN,URINE NEGATIVE (NEGATIVE); URINE SPECIFIC GRAVITY 1.019; UROBILINOGEN,URINE NEGATIVE mg/dL (<2.0)
[2017-04-08 14:55] LABS: ALANINE AMINOTRANSFERASE 47 U/L (21-72); ALBUMIN 4.7 g/dL (3.5-5.0); ALKALINE PHOSPHATASE 90 U/L (38-126); ANION GAP 13 (5-19); ASPARTATE AMINO TRANSFERASE 38 U/L (17-59); BILIRUBIN,DIRECT 0.4 mg/dL (0.0-0.4); BILIRUBIN,TOTAL 0.6 mg/dL (0.2-1.3); BLOOD UREA NITROGEN 13 mg/dL (7-20); CALCIUM 9.8 mg/dL (8.4-10.2); CARBON DIOXIDE 29 mmol/L (22-30); CHLORIDE 104 mmol/L (98-107); CREATININE RESULT 1.08 mg/dL (0.52-1.25); GLUCOSE 91 mg/dL (75-110); POTASSIUM 4.4 mmol/L (3.6-5.0); SODIUM 145.6 mmol/L (137-145); TOTAL PROTEIN 7.9 g/dL (6.3-8.2)
--- NOTE | 2017-04-08 15:16 | RADIOLOGY REPORT (SQ) ---
EXAM DESCRIPTION: CT HEAD WITHOUT COMPLETED DATE/TIME: 04/08/2017 3:03 pm REASON FOR STUDY: pain COMPARISON: MRI brain 12/22/2016 CT brain 12/22/2016 CT angio neck 11/29/2016 TECHNIQUE: Axial images acquired through the brain without intravenous contrast. Images reviewed wi th bone, brain and subdural windows. Images stored on PACS. All CT scanners at this facility use dose modulation, iterative reconstruction, and/or weight based d osing when appropriate to reduce radiation dose to as low as reasonably achievable (ALARA). [facility]: Dose Right [facility]: CareDose [facility]: Dose Right [facility]: Teradose 4D [facility]: Smart PeopleString RADIATION DOSE: Up-to-date CT equipment and radiation dose reduction techniques were employed. CTDIv ol: 49.0 mGy. DLP: 881 mGy-cm. mGy. LIMITATIONS: None. FINDINGS: VENTRICLES: Normal size and contour. CEREBRUM: No masses. No hemorrhage. No midline shift. No evidence for acute infarction. Normal gra y/white matter differentiation. No areas of low density in the white matter. CEREBELLUM: No masses. No hemorrhage. No alteration of density. No evidence for acute infarction. EXTRAAXIAL SPACES: No fluid collections. No masses. ORBITS AND GLOBE: No intra- or extraconal masses. Normal contour of globe without masses. CALVARIUM: No fracture. PARANASAL SINUSES: No fluid or mucosal thickening. SOFT TISSUES: No mass or hematoma. OTHER: No other significant finding. IMPRESSION: NORMAL BRAIN CT WITHOUT CONTRAST. EVIDENCE OF ACUTE STROKE: NO. COMMENT: Quality ID # [id number]: Final reports with documentation of one or more dose reduction techniques (e.g., Automated exposure control, adjustment of the mA and/or kV according to patient size, use of iterative reconstruction technique) TECHNICAL DOCUMENTATION: JOB ID: [id number] [employer]- All Rights Reserved
[2017-04-08] MEDS ORDERED: KETOROLAC TROMETHAMINE INJ/PF 30 MG/1 ML SDV IV ONE (15:49)
--- NOTE | 2017-04-08 16:38 | RADIOLOGY REPORT (SQ) ---
EXAM DESCRIPTION: CT ABD/PELVIS WITH IV ONLY COMPLETED DATE/TIME: 04/08/2017 4:17 pm REASON FOR STUDY: LLQ abdominal pain COMPARISON: April 2016 TECHNIQUE: CT scan of the abdomen and pelvis performed using helical scanning technique with dynamic intravenous contrast injection. No oral contrast. Images reviewed with lung, soft tissue, and bone windows. Reconstructed coronal and sagittal MPR images reviewed. Delayed images for evaluation of the urinary system also acquired. All images stored on PACS. All CT scanners at this facility use dose modulation, iterative reconstruction, and/or weight based d osing when appropriate to reduce radiation dose to as low as reasonably achievable (ALARA). [facility]: Dose Right [facility]: CareDose [facility]: Dose Right [facility]: Teradose 4D [facility]: Stockpulse CONTRAST TYPE AND DOSE: contrast/concentration: Isovue 370.00 mg/ml; Total Contrast Delivered: 95.0 ml; Total Saline Delivered: 57.0 ml RENAL FUNCTION: Creatinine 1.08 RADIATION DOSE: Up-to-date CT equipment and radiation dose reduction techniques were employed. CTDIv ol: 6.9 - 8.3 mGy. DLP: 799 mGy-cm.. LIMITATIONS: None. FINDINGS: LOWER CHEST: No significant findings. No nodules or infiltrates. LIVER: Normal size. No masses. No dilated ducts. SPLEEN: Normal size. A tiny focal low density area is identified which is too small to further kurt cterize by CT. PANCREAS: No masses. No significant calcifications. No adjacent inflammation or peripancreatic fluid collections. Pancreatic duct not dilated. GALLBLADDER: No identified stones by CT criteria. No inflammatory changes to suggest cholecystitis. ADRENAL GLANDS: No significant masses or asymmetry. RIGHT KIDNEY AND URETER: No solid masses. No significant calcifications. No hydronephrosis or hyd roureter. LEFT KIDNEY AND URETER: No solid masses. No significant calcifications. No hydronephrosis or hydr oureter. AORTA AND VESSELS: No aneurysm. No dissection. Renal arteries, SMA, celiac without stenosis. RETROPERITONEUM: No retroperitoneal adenopathy, hemorrhage or masses. BOWEL AND PERITONEAL CAVITY: No masses or inflammatory changes. No free fluid or peritoneal masses. APPENDIX: Normal. PELVIS: No mass. No free fluid. Normal bladder. ABDOMINAL WALL: No masses. No hernias. BONES: No significant or acute findings. OTHER: No other significant finding. IMPRESSION: NO SIGNIFICANT OR ACUTE FINDING IN THE ABDOMEN OR PELVIS ON CT SCAN WITH IV CONTRAST. TECHNICAL DOCUMENTATION: JOB ID: [id number] Quality ID # [id number]: Final reports with documentation of one or more dose reduction techniques (e.g., Au tomated exposure control, adjustment of the mA and/or kV according to patient size, use of iterative reconstruction technique) 2010 [employer]- All Rights Reserved
--- NOTE | 2017-04-08 18:49 | RADIOLOGY REPORT (SQ) ---
EXAM DESCRIPTION: MRI HEAD WITHOUT COMPLETED DATE/TIME: 04/08/2017 6:39 pm REASON FOR STUDY: new onset ataxia, dizziness, vision changes COMPARISON: None. TECHNIQUE: Multiplanar imaging includes non-contrasted T1, T2, FLAIR, and diffusion with ADC map seq uences. Images stored on PACS. LIMITATIONS: None. FINDINGS: ANATOMY: No anomalies. Normal vascular flow voids. Pituitary fossa normal. CSF SPACES: Normal in size and contour. No hemorrhage. CEREBRUM: Sulci and gyri normal in size and contour. Normal white matter signal on FLAIR imaging. No evidence of hemorrhage, mass, or extraaxial fluid collection. POSTERIOR FOSSA: No signal alteration. No hemorrhage. No edema, masses or mass effect. Internal dhara tory canals, cerebello-pontine angles, mastoids normal. DIFFUSION IMAGING: Negative for acute or sub-acute infarction. ORBITS: No masses. Globes normal. PARANASAL SINUSES: No fluid levels. Mucosa normal. OTHER: No other significant finding. IMPRESSION: NORMAL MRI OF THE BRAIN WITHOUT INTRAVENOUS GADOLINIUM CONTRAST. EVIDENCE OF ACUTE STROKE: NO. TECHNICAL DOCUMENTATION: JOB ID: [id number]- All Rights Reserved
[2017-04-08] MEDS ORDERED: SUMATRIPTAN SUCCINATE 50 MG TABLET PO ONE (18:54)
[2017-04-08 20:29] VITALS: BP 122/78
== END 2017-04-08 20:30 | disposition home or self-care (01) ==
LOC: ER 11:58
DX: R51 Headache (principal); R10.9 Unspecified abdominal pain; R42 Dizziness and giddiness; Z87.891 Personal history of nicotine dependence
CPT/HCPCS: 99284; 96361; 96374; 96375; 36415; 85025; 80053; 81001; 70551; 70450; 74177; J1885; J2270; J2405; J7030; J3490

== ENCOUNTER 2017-06-17 11:20 | Observation (INO) | payer SELFPAY ==
[2017-06-17] MEDS ORDERED: ASPIRIN 81 MG TABLET, CHEWABLE PO ONE (11:23)
[2017-06-17] MEDS ORDERED: NITROGLYCERIN 2% OINTMENT 1 GM PACKET TP ONE (11:46)
[2017-06-17 11:47] LABS: ABSOLUTE LYMPHOCYTES (AUTO) 2.3 10^3/uL (0.5-4.7); ABSOLUTE MONOCYTES (AUTO) 0.7 10^3/uL (0.1-1.4); ABSOLUTE NEUT (AUTO) 5.3 10^3/uL (1.7-8.2); BASOPHILS % (AUTO) 0.3 % (0-2); EOSINOPHILS % (AUTO) 0.3 % (0-6); HEMATOCRIT 43.5 % (37.9-51.0); HEMOGLOBIN 14.9 g/dL (13.5-17.0); LYMPHOCYTES % (AUTO) 27.1 % (13-45); MEAN CORPUSCULAR HEMOGLOBIN 30.8 pg (27.0-33.4); MEAN CORPUSCULAR HGB CONC 34.3 g/dL (32.0-36.0); MEAN CORPUSCULAR VOLUME 90 fl (80-97); MONOCYTES % (AUTO) 8.9 % (3-13); PLATELET COUNT 227 10^3/uL (150-450); RED BLOOD COUNT 4.85 10^6/uL (4.35-5.55); RED CELL DISTRIBUTION WIDTH 13.4 % (11.5-14.0); SEGMENTED NEUTROPHILS % (AUTO) 63.4 % (42-78); TOTAL CELLS COUNTED % (AUTO) 100 %; WHITE BLOOD COUNT 8.4 10^3/uL (4.0-10.5)
--- NOTE | 2017-06-17 11:59 | ER Document Report ---
ED General - General Chief Complaint: Chest Pain Stated Complaint: DIZZINESS Time Seen by Provider: 06/17/17 11:35 Notes: 52-year-old male presents for chest pain left-sided pressure-like onset this morning at 5 AM nonradiating. Positive nausea and shortness of breath. Partially relieved by prehospital nitro. He has risk factors for stroke and SD but a recent stroke actually ended up being a complete a migraine. TRAVEL OUTSIDE OF THE [place] IN LAST 30 DAYS: No - Related Data Allergies/Adverse Reactions: diphenhydramine HCl [From Benadryl] Allergy (Severe, Verified 04/08/17 12:00) altered mental status Past Medical History - Social History Smoking Status: Former Smoker Family History: Reviewed & Not Pertinent - Past Medical History Cardiac Medical History: Denies: Hx Coronary Artery Disease, Hx Heart Attack, Hx Hypertension Pulmonary Medical History: Denies: Hx Asthma, Hx Bronchitis, Hx COPD, Hx Pneumonia Neurological Medical History: Reports: Hx Migraine. Denies: Hx Cerebrovascular Accident, Hx Seizures Renal/ Medical History: Denies: Hx Peritoneal Dialysis Musculoskeltal Medical History: Denies Hx Arthritis Past Surgical History: Reports: Hx Orthopedic Surgery - fusion in L4-5?, Hx Vascular Surgery - clot retrieval 21 days ago with no clot. Denies: Hx Pacemaker - Immunizations Immunizations up to date: Yes Hx Diphtheria, Pertussis, Tetanus Vaccination: Yes Review of Systems - Review of Systems Notes: REVIEW OF SYSTEMS GEN: Denies fever, chills, weight loss ENT: Denies sore throat, nasal discharge, ear pain EYES: Denies blurry vision, eye pain, discharge CV: Chest pain RESP: Denies cough, shortness of breath, wheezing GI: Denies abdominal pain, nausea, vomiting, diarrhea MSK: Denies joint pain/swelling, edema, SKIN: Denies rash, skin lesions LYMPH: Denies swollen glands/lymph nodes NEURO: Denies headache, focal weakness or numbness, dizziness PSYCH: Denies depression, suicidal or homicidal ideation PHYSICAL EXAMINATION General: No acute distress, well-nourished Head: Atraumatic, normocephalic ENT: Mouth normal, oropharynx moist, no exudates or tonsillar enlargement Eyes: Conjunctiva normal, pupils equal, lids normal Neck: No JVD, supple, no guarding CVS: Normal rate, regular rhythm, no murmurs Resp: No resp distress, equal and normal breath sounds bilaterally GI: Nondistended, soft, no tenderness to palpation, no rebound or guarding Ext: No deformities, no edema, normal range of motion in upper and lower ext Back: No CVA or midline TTP Skin: No rash, warm Lymphatic: No lymphadeopathy noted Neuro: Awake, alert. Face symmetric. GCS 15. Physical Exam - Vital signs Vitals: Pulse Ox 98 06/17/17 11:23 Course - Re-evaluation Re-evalutation: XConcerning sounding chest pain and a 52-year-old maleWith cardiac risk factors no history of a stress test. Nitro relieved the pain. Is now back to a 6. His initial ECG in the ED does not show ischemic change. Troponin will be sent and I will repeat his EKG. His heart score including age risk factors and history is already a 4 without a troponin. Doubt dissection or PE based on quality of pain. 06/17/17 11:58 06/17/17 12:26 Nitropaste is relieve the patient's pain. His first troponin is negative. Given his risk factors and heart score of 5 he will be admitted to the hospital. Spoke with Dr. Saucedo. Will admit to [facility] telemetry. - Vital Signs Vital signs: Temp Pulse Resp BP Pulse Ox 98 06/17/17 11:23 - Laboratory Result Diagrams: 06/17/17 11:34 06/17/17 11:34 Laboratory results interpreted by me: 06/17/17 11:34 Sodium 146.2 H Chloride 108 H Creatine Kinase 28 L Critical Care Note - Critical Care Note Total time excluding time spent on procedures (mins): 32 Comments: The above patient is critically ill. Not including procedures, but including direct re-evaluations, speaking with patient and/or consultants, interpreting results, and documenting, I spent the total amount of minute listed listed above on critical care time Discharge - Discharge Clinical Impression: Unstable angina Condition: Fair Disposition: ADMITTED OBSERVATION Admitting Provider: Hospitalist Unit Admitted: Telemetry
[2017-06-17 12:04] LABS: ALANINE AMINOTRANSFERASE 36 U/L (21-72); ALBUMIN 4.3 g/dL (3.5-5.0); ALKALINE PHOSPHATASE 61 U/L (38-126); ANION GAP 10 (5-19); ASPARTATE AMINO TRANSFERASE 22 U/L (17-59); BILIRUBIN,DIRECT 0.3 mg/dL (0.0-0.4); BILIRUBIN,TOTAL 0.5 mg/dL (0.2-1.3); BLOOD UREA NITROGEN 14 mg/dL (7-20); CALCIUM 9.1 mg/dL (8.4-10.2); CARBON DIOXIDE 28 mmol/L (22-30); CHLORIDE 108 mmol/L (98-107); CREATINE KINASE 28 U/L (55-170); GLUCOSE 93 mg/dL (75-110); POTASSIUM 3.7 mmol/L (3.6-5.0); SODIUM 146.2 mmol/L (137-145); TOTAL PROTEIN 6.9 g/dL (6.3-8.2)
[2017-06-17 12:16] LABS: CREATINE KINASE MB < 0.22 ng/mL (<4.55); TROPONIN I < 0.012 ng/mL
--- NOTE | 2017-06-17 12:21 | RADIOLOGY REPORT (SQ) ---
EXAM DESCRIPTION: CHEST SINGLE VIEW COMPLETED DATE/TIME: 06/17/2017 12:11 pm REASON FOR STUDY: cp COMPARISON: 12/22/2016 EXAM PARAMETERS: NUMBER OF VIEWS: One view. TECHNIQUE: Single frontal radiographic view of the chest acquired. RADIATION DOSE: NA LIMITATIONS: None. FINDINGS: LUNGS AND PLEURA: No opacities, masses or pneumothorax. No pleural effusion. MEDIASTINUM AND HILAR STRUCTURES: No masses. Contour normal. HEART AND VASCULAR STRUCTURES: Heart normal in size. Normal vasculature. BONES: No acute findings. HARDWARE: None in the chest. OTHER: No other significant finding. IMPRESSION: NO ACUTE RADIOGRAPHIC FINDING IN THE CHEST. TECHNICAL DOCUMENTATION: JOB ID: [id number] [employer]- All Rights Reserved
--- NOTE | 2017-06-17 12:57 | EKG REPORT ---
SEVERITY:- NORMAL ECG - SINUS RHYTHM : Confirmed by: Kristofer Olmos MD 17-Jun-2017 12:57:04
[2017-06-17] MEDS ORDERED: ONDANSETRON 4 MG TAB.RAPDIS PO PRN (15:33)
--- NOTE | 2017-06-17 15:51 | PDOC H&P ---
History of Present Illness Admission Date/PCP: 06/17/17 12:45 TERRELL CARROLL PA-C Patient complains of: chest pain History of Present Illness: ANALI LUNDBERG is a 52 year old male presents with complaint of chest pain. Patient states that he was at his neurologist office addressing his chronic migraine problem when he developed chest pain. states that he has had chest pain off and on for several weeks however today had an episode of chest pain and was directed to the emergency room department. Patient does report that he has problems with acid reflux. Patient states that he belches frequently and has metallic-like taste in mouth at times. Patient also reports that he has been experiencing abdominal pain for the last 1-2 weeks. Patient also states that he had shortness of breath with episode of chest pain he denies any nausea or vomiting. also reports that patient is very anxious and feels that patient could benefit from anxiety medication. states the patient does not have a primary care doctor and therefore the neurologist had directed them to a admin secretary and then told him to go to the emergency room since he was complaining of chest pain. Patient also reports that he has issues with balance that have been chronic for him. Past Medical History Cardiac Medical History: Denies: Coronary Artery Disease, Myocardial Infarction, Hypertension Pulmonary Medical History: Denies: Asthma, Bronchitis, Chronic Obstructive Pulmonary Disease (COPD), Pneumonia Neurological Medical History: Reports: Migraine Denies: Seizures Musculoskeltal Medical History: Denies: Arthritis Hematology: Denies: Anemia Past Surgical History Past Surgical History: Reports: Orthopedic Surgery - fusion in L4-5?, Vascular Surgery - clot retrieval 21 days ago with no clot Denies: Pacemaker Social History Smoking Status: Former Smoker Frequency of Alcohol Use: None Last Alcohol Use: 06/17/17 - Patient is a former alcoholic stop 7 months ago Hx Recreational Drug Use: Yes Drugs: Marijuana Hx Prescription Drug Abuse: No - Advance Directive Resuscitation Status: Full Code Family History Family History: None. denies: Reviewed & Not Pertinent, Arthritis, CAD, COPD, CVA, Hyperlipidemia, Hypertension, Malignancy, Thyroid Disfunction, Other Parental Family History Reviewed: No Children Family History Reviewed: No Sibling(s) Family History Reviewed.: No Medication/Allergy Home Medications: Diazepam [Valium] 2.5 mg PO Q8HP PRN 06/17/17 L.acidoph,Paracasei, B.lactis [Probiotic] 1 cap PO DAILY 06/17/17 Multivitamin [Multiple Vitamins] 1 tab PO DAILY 06/17/17 Topiramate [Trokendi Xr] 100 mg PO DAILY 06/17/17 Allergies/Adverse Reactions: diphenhydramine HCl [From Benadryl] Allergy (Severe, Verified 04/08/17 12:00) altered mental status Review of Systems Cardiovascular: PRESENT: chest pain Respiratory: ABSENT: cough, hemoptysis Gastrointestinal: ABSENT: abdominal pain, constipation, diarrhea, hematemesis, hematochezia, nausea, vomiting Genitourinary: ABSENT: dysuria, hematuria Musculoskeletal: PRESENT: back pain Neurological: PRESENT: abnormal gait, dizziness, weakness Psychiatric: ABSENT: anxiety, depression, homidical ideation, suicidal ideation Endocrine: ABSENT: cold intolerance, heat intolerance, polydipsia, polyuria Hematologic/Lymphatic: PRESENT: as per HPI Physical Exam Vital Signs: Temp Pulse Resp BP Pulse Ox 13 126/80 H 98 06/17/17 13:01 06/17/17 13:01 06/17/17 13:01 General appearance: PRESENT: no acute distress, well-developed, well-nourished Head exam: PRESENT: atraumatic, normocephalic Eye exam: PRESENT: conjunctiva pink, EOMI. ABSENT: scleral icterus Ear exam: PRESENT: normal external ear exam Mouth exam: PRESENT: moist, tongue midline Neck exam: PRESENT: tenderness, other - Patient has multiple trigger points on the base of skull patient also has tenderness along the scalene muscles and the trapezius muscles Respiratory exam: PRESENT: clear to auscultation rosie. ABSENT: rales, rhonchi, wheezes Cardiovascular exam: PRESENT: RRR. ABSENT: diastolic murmur, rubs, systolic murmur Pulses: PRESENT: normal dorsalis pedis pul Vascular exam: PRESENT: normal capillary refill GI/Abdominal exam: PRESENT: normal bowel sounds, soft. ABSENT: distended, guarding, mass, organolmegaly, rebound, tenderness Rectal exam: PRESENT: deferred Extremities exam: PRESENT: full ROM. ABSENT: calf tenderness, clubbing, pedal edema Neurological exam: PRESENT: alert, awake, oriented to person, oriented to place , oriented to time, oriented to situation, CN II-XII grossly intact. ABSENT: motor sensory deficit Psychiatric exam: PRESENT: appropriate affect, normal mood. ABSENT: homicidal ideation, suicidal ideation Skin exam: PRESENT: dry, intact, warm. ABSENT: cyanosis, rash Results Impressions: Chest X-Ray 06/17/17 11:23 IMPRESSION: NO ACUTE RADIOGRAPHIC FINDING IN THE CHEST. Assessment & Plan - Diagnosis (1) Musculoskeletal chest pain Is this a current diagnosis for this admission?: Yes Plan: We will order cardiac markers, 2D echo, and stress test for a.m. Patient's risk stratification is low. (2) Radiculopathy of cervical spine Is this a current diagnosis for this admission?: Yes Plan: Patient informed to use cervical pillow to help with neck pain. Patient was also told to ask his neurologist about Botox injections (3) Chronic migraine Is this a current diagnosis for this admission?: Yes Plan: Patient was told to ask his neurologist about Botox injections given the fact that patient is stated that his home medications are not helping to control migraines. (4) Chronic back pain Is this a current diagnosis for this admission?: Yes Plan: Supportive care. (5) Hypernatremia Is this a current diagnosis for this admission?: Yes Plan: We will place patient on IV fluids. Hypernatremia secondary to volume depletion. (6) EtOH dependence Is this a current diagnosis for this admission?: Yes Plan: Has history of EtOH abuse. Patient stating that he stopped [address] on multivitamins (7) Gait instability Is this a current diagnosis for this admission?: Yes Plan: Most likely related to patient's heavy EtOH abuse. Patient will need to have this further evaluated as outpatient. (8) Near syncope Is this a current diagnosis for this admission?: Yes Plan: Per patient is a chronic problem. Will try meclizine to see if this helps minimize symptoms. (9) DVT prophylaxis Is this a current diagnosis for this admission?: Yes Plan: SCDs - Time Time Spent: 30 to 50 Minutes
[2017-06-17] MEDS: RINGERS SOLUTION,LACTATED 1,000 ML IV PRN (16:03)
[2017-06-17] MEDS ORDERED: ACETAMINOPHEN 325 MG TABLET ONE (16:12)
[2017-06-17] MEDS: ACETAMINOPHEN 325 MG TABLET PO PRN (16:13)
[2017-06-17] MEDS ORDERED: AMINOPHYLLINE INJ/PF 250 MG/10 ML SDV IV ONE (18:00)
[2017-06-17] MEDS ORDERED: REGADENOSON INJ 0.4 MG/5 ML DISP.SYRIN IV ONE (18:00)
[2017-06-17] MEDS ORDERED: LACTOBACILLUS ACIDOPHILUS 250 MG TAB PO ONE (18:15)
[2017-06-17] MEDS ORDERED: MULTIVITAMIN TABLET PO ONE (18:15)
[2017-06-17] MEDS ORDERED: THIAMINE HCL 100 MG TABLET PO ONE (18:15)
[2017-06-17] MEDS: DIAZEPAM 5 MG TABLET PO PRN (18:18)
[2017-06-17] MEDS: MORPHINE SULFATE 10 MG/ML INJ IV PRN (20:20)
[2017-06-18] MEDS: MORPHINE SULFATE 10 MG/ML INJ IV PRN ×3 (00:41→09:15)
[2017-06-18] MEDS: RINGERS SOLUTION,LACTATED 1,000 ML IV PRN (00:41)
[2017-06-18 04:34] LABS: ABSOLUTE EOSINOPHILS # (AUTO) 0.1 10^3/uL (0.0-0.6); ABSOLUTE LYMPHOCYTES (AUTO) 2.8 10^3/uL (0.5-4.7); ABSOLUTE MONOCYTES (AUTO) 0.7 10^3/uL (0.1-1.4); BASOPHILS % (AUTO) 0.4 % (0-2); EOSINOPHILS % (AUTO) 0.9 % (0-6); HEMATOCRIT 41.2 % (37.9-51.0); HEMOGLOBIN 14.3 g/dL (13.5-17.0); LYMPHOCYTES % (AUTO) 32.8 % (13-45); MEAN CORPUSCULAR HEMOGLOBIN 31.3 pg (27.0-33.4); MEAN CORPUSCULAR HGB CONC 34.6 g/dL (32.0-36.0); MEAN CORPUSCULAR VOLUME 90 fl (80-97); MONOCYTES % (AUTO) 8.3 % (3-13); PLATELET COUNT 229 10^3/uL (150-450); RED BLOOD COUNT 4.56 10^6/uL (4.35-5.55); RED CELL DISTRIBUTION WIDTH 13.2 % (11.5-14.0); SEGMENTED NEUTROPHILS % (AUTO) 57.6 % (42-78); TOTAL CELLS COUNTED % (AUTO) 100 %; WHITE BLOOD COUNT 8.7 10^3/uL (4.0-10.5)
[2017-06-18] MEDS: LANSOPRAZOLE 30 MG TAB.RAP.DR PO SCH (04:46)
[2017-06-18 04:52] LABS: ALANINE AMINOTRANSFERASE 36 U/L (21-72); ALBUMIN 3.5 g/dL (3.5-5.0); ALKALINE PHOSPHATASE 54 U/L (38-126); ANION GAP 8 (5-19); ASPARTATE AMINO TRANSFERASE 19 U/L (17-59); BILIRUBIN,DIRECT 0.2 mg/dL (0.0-0.4); BILIRUBIN,TOTAL 0.3 mg/dL (0.2-1.3); BLOOD UREA NITROGEN 15 mg/dL (7-20); CALCIUM 9.3 mg/dL (8.4-10.2); CARBON DIOXIDE 28 mmol/L (22-30); CHLORIDE 107 mmol/L (98-107); CHOLESTEROL 150.72 mg/dL (0-200); GLUCOSE 96 mg/dL (75-110); POTASSIUM 3.6 mmol/L (3.6-5.0); SODIUM 143.3 mmol/L (137-145); TOTAL PROTEIN 5.7 g/dL (6.3-8.2); TRIGLYCERIDES 214 mg/dL (<150)
[2017-06-18 05:03] LABS: DIRECT LDL 94 mg/dL (<100)
[2017-06-18 05:11] LABS: VLDL CHOLESTEROL 42.8 mg/dL (10-31)
[2017-06-18] MEDS: THIAMINE HCL 100 MG TABLET PO SCH (09:15)
[2017-06-18] MEDS: LACTOBACILLUS ACIDOPHILUS 250 MG TAB PO SCH (09:15)
[2017-06-18] MEDS: MULTIVITAMIN TABLET PO SCH (09:15)
[2017-06-18] MEDS ORDERED: TOPIRAMATE 100 MG PO SCH (10:00)
[2017-06-18] MEDS ORDERED: MULTIVITAMIN TABLET PO SCH (10:00)
[2017-06-18] MEDS ORDERED: (PENDING PHARMACY ID) (L.Acidoph,Paracasei, B.Lactis [Probiotic] 1 CAP) PO SCH (10:00)
[2017-06-18] MEDS: KETOROLAC TROMETHAMINE INJ/PF 30 MG/1 ML SDV IV SCH ×2 (14:37→22:12)
--- NOTE | 2017-06-18 14:48 | PDOC PROGRESS REPORT ---
Subjective Progress Note for:: 06/18/17 Subjective:: Patient seen on rounds. He is resting in bed. He denies any chest pain, shortness of breath or dyspnea at the present time. He was scheduled to have a nuclear stress test on this morning. Unfortunately, he told the audio video technician he was having pain in his chest wall and therefore the chest was canceled. His troponins 3 are completely normal. His pain is atypical for cardiac in nature. It increases with pressure to the chest wall. It was constant for approximately 3 hours this morning he states. He also has a history of significant GERD. He takes Zantac [id number] for this. He has also been taking increasing amounts of ibuprofen due to chronic migraine headaches. He has risk factors for coronary disease in male gender, tobacco, dyslipidemia, essential hypertension and first-generation family history in his mother. Reason For Visit: MUCULOSKELETAL PAIN,CHEST PAIN,CHRONIC MIGRAINES Physical Exam Vital Signs: Temp Pulse Resp BP Pulse Ox 98.1 F 75 17 110/74 98 06/18/17 11:18 06/18/17 11:18 06/18/17 11:18 06/18/17 11:18 06/18/17 11:18 Intake & Output 06/17/17 06/18/17 06/19/17 06:59 06:59 06:59 Intake Total 1700 Output Total 5 Balance -335 Weight 89 kg General appearance: PRESENT: no acute distress, well-developed, well-nourished Head exam: PRESENT: atraumatic, normocephalic Eye exam: PRESENT: conjunctiva pink, EOMI, PERRLA. ABSENT: scleral icterus Ear exam: PRESENT: normal external ear exam Mouth exam: PRESENT: moist, tongue midline Neck exam: ABSENT: carotid bruit, JVD, lymphadenopathy, thyromegaly Respiratory exam: PRESENT: clear to auscultation rosie. ABSENT: rales, rhonchi, wheezes Cardiovascular exam: PRESENT: RRR. ABSENT: diastolic murmur, rubs, systolic murmur Pulses: PRESENT: normal dorsalis pedis pul Vascular exam: PRESENT: normal capillary refill GI/Abdominal exam: PRESENT: normal bowel sounds, soft. ABSENT: distended, guarding, mass, organolmegaly, rebound, tenderness Rectal exam: PRESENT: deferred Extremities exam: PRESENT: full ROM. ABSENT: calf tenderness, clubbing, pedal edema Neurological exam: PRESENT: alert, awake, oriented to person, oriented to place , oriented to time, oriented to situation, CN II-XII grossly intact. ABSENT: motor sensory deficit Psychiatric exam: PRESENT: appropriate affect, normal mood. ABSENT: homicidal ideation, suicidal ideation Skin exam: PRESENT: dry, intact, warm. ABSENT: cyanosis, rash Results Laboratory Results: 06/18/17 03:45 06/18/17 03:45 06/18/17 06/18/17 06/18/17 03:45 03:45 03:45 WBC 8.7 RBC 4.56 Hgb 14.3 Hct 41.2 MCV 90 MCH 31.3 MCHC 34.6 RDW 13.2 Plt Count 229 Seg Neutrophils % 57.6 Lymphocytes % 32.8 Monocytes % 8.3 Eosinophils % 0.9 Basophils % 0.4 Absolute Neutrophils 5.0 Absolute Lymphocytes 2.8 Absolute Monocytes 0.7 Absolute Eosinophils 0.1 Absolute Basophils 0.0 Sodium 143.3 Potassium 3.6 Chloride 107 Carbon Dioxide 28 Anion Gap 8 BUN 15 Creatinine 0.99 Est GFR ( Amer) > 60 Est GFR (Non-Af Amer) > 60 Glucose 96 Calcium 9.3 Total Bilirubin 0.3 AST 19 ALT 36 Alkaline Phosphatase 54 Total Protein 5.7 L Albumin 3.5 Triglycerides 214 H Cholesterol 150.72 LDL Cholesterol Direct 94 VLDL Cholesterol 42.8 H HDL Cholesterol 31 L Folate 19.40 06/17/17 06/17/17 06/17/17 16:00 16:00 21:38 Creatine Kinase 24 L 25 L Troponin I < 0.012 06/17/17 06/18/17 06/18/17 21:38 03:45 03:45 Creatine Kinase 23 L Troponin I < 0.012 < 0.012 Impressions: Chest X-Ray 06/17/17 11:23 IMPRESSION: NO ACUTE RADIOGRAPHIC FINDING IN THE CHEST. Assessment & Plan - Diagnosis (1) GERD (gastroesophageal reflux disease) Qualifiers: Esophagitis presence: esophagitis presence not specified Qualified Code(s) : K21.9 - Gastro-esophageal reflux disease without esophagitis Is this a current diagnosis for this admission?: Yes Plan: We will add Carafate as well. At risk for gastritis esophagitis or even ulcers due to high nonsteroidal anti-inflammatory use. He will need follow-up with gastroenterology once he is ruled out for coronary disease. (2) Musculoskeletal chest pain Is this a current diagnosis for this admission?: Yes Plan: Pain is very atypical for cardiac in nature. Patient would like to proceed with stress testing because of his risk factors. We will attempt to alleviate his chest wall pain with IV ketorolac. (3) Chronic back pain Is this a current diagnosis for this admission?: Yes (4) Chronic migraine Is this a current diagnosis for this admission?: Yes (5) EtOH dependence Is this a current diagnosis for this admission?: Yes Plan: Patient states he just stopped drinking 5 months ago. He had heavy alcohol use prior to this (6) Hypernatremia Is this a current diagnosis for this admission?: Yes Plan: Resolved with IV hydration. Will stop IV fluids (7) Radiculopathy of cervical spine Is this a current diagnosis for this admission?: Yes Plan: Ketorolac
[2017-06-18] MEDS: SUCRALFATE SUSP 1 GM/10 ML UDCUP PO SCH ×2 (16:20→22:12)
[2017-06-18] MEDS: ACETAMINOPHEN 325 MG TABLET PO PRN (18:33)
--- NOTE | 2017-06-18 18:58 | XCELERA REPORT ---
[address] [address] Transthoracic Echocardiogram Report Name: ANALI LUNDBERG Age: 52 yrs Gender: Male : 1965 Patient Status: Inpatient Patient Location: [address] [place] [address] Study Date: 06/18/2017 02:29 PM Height: 70 in Weight: 196 lb BSA: 2.1 m2 Procedure: A complete two-dimensional transthoracic echocardiogram was performed (2D, M-mode, spectral and color flow Doppler). The study was technically adequate with some images being suboptimal in quality. Reason For Study: chest pain Ordering Physician: CARLA COTTON Performed By: Porsche Rudolph Interpretation Summary The left ventricular ejection fraction is normal. There is borderline concentric left ventricular hypertrophy. The left ventricle is grossly normal size. Doppler measurements suggest pseudonormalized left ventricular relaxation, which is associated with grade II/IV or mild to moderate diastolic dysfunction Wall motion cannot be accurately commented on, but no definite regional wall motion abnormalities noted. The right ventricular systolic function is normal. The right atrium is normal. The left atrial size is normal. There is no mitral valve stenosis. There is a trace amount of mitral regurgitation There is no aortic valve stenosis No aortic regurgitation is present. There is no tricuspid stenosis. No tricuspid regurgitation. The aortic root is not well visualized but is probably normal size. The inferior vena cava appeared normal and decreased > 50% with respiration (RAP 5-10 mmHg) There is no pericardial effusion. MMode/2D Measurements & Calculations RVDd: 3.5 cm LVIDd: 5.2 cm FS: 41.1 % Ao root diam: 2.9 cm IVSd: 0.90 cm LVIDs: 3.1 cm EDV(Teich): 132.0 ml LVPWd: 0.93 cm ESV(Teich): 37.6 ml Ao root area: 6.6 cm2 EF(Teich): 71.5 % LA dimension: 3.3 cm Doppler Measurements & Calculations MV E max delmy: MV P1/2t max delmy: Ao V2 max: LV V1 max P.1 cm/sec 71.6 cm/sec 125.5 cm/sec 5.5 mmHg MV A max delmy: MV P1/2t: 77.9 msec Ao max PG: LV V1 max: 61.7 cm/sec 6.3 mmHg 117.0 cm/sec MV E/A: 1.1 MVA(P1/2t): 2.8 cm2 MV dec slope: 269.0 cm/sec2 MV dec time: 0.26 sec PA V2 max: 101.7 cm/sec PA max P.1 mmHg Left Ventricle The left ventricle is grossly normal size. There is borderline concentric left ventricular hypertrophy. The left ventricular ejection fraction is normal. Doppler measurements suggest pseudonormalized left ventricular relaxation, which is associated with grade II/IV or mild to moderate diastolic dysfunction. Wall motion cannot be accurately commented on, but no definite regional wall motion abnormalities noted. Right Ventricle The right ventricle is grossly normal size. There is normal right ventricular wall thickness. The right ventricular systolic function is normal. Atria The right atrium is normal. The left atrial size is normal. Interarterial septum not well visualized and not well dopplered. Cannot comment on ASD/PFO presence. Mitral Valve The mitral valve is grossly normal. There is no mitral valve stenosis. There is a trace amount of mitral regurgitation. Aortic Valve The aortic valve is grossly normal. There is no aortic valve stenosis. No aortic regurgitation is present. Tricuspid Valve The tricuspid valve is not well visualized, but is grossly normal. There is no tricuspid stenosis. No tricuspid regurgitation. Pulmonic Valve The pulmonic valve is not well visualized. Great Vessels The aortic root is not well visualized but is probably normal size. The inferior vena cava appeared normal and decreased > 50% with respiration (RAP 5-10 mmHg). Effusions There is no pericardial effusion. : CARLA COTTON Shyamal
[2017-06-18] MEDS: DIAZEPAM 5 MG TABLET PO PRN (19:55)
[2017-06-18] MEDS: FAMOTIDINE 20 MG TABLET PO SCH (22:11)
[2017-06-19] MEDS: LANSOPRAZOLE 30 MG TAB.RAP.DR PO SCH (05:46)
[2017-06-19] MEDS: KETOROLAC TROMETHAMINE INJ/PF 30 MG/1 ML SDV IV SCH ×2 (06:31→13:09)
[2017-06-19] MEDS: FAMOTIDINE 20 MG TABLET PO SCH (10:30)
[2017-06-19] MEDS: MULTIVITAMIN TABLET PO SCH (10:30)
[2017-06-19] MEDS: THIAMINE HCL 100 MG TABLET PO SCH (10:30)
[2017-06-19] MEDS: SUCRALFATE SUSP 1 GM/10 ML UDCUP PO SCH ×2 (10:30→10:44)
[2017-06-19] MEDS: LACTOBACILLUS ACIDOPHILUS 250 MG TAB PO SCH (10:31)
[2017-06-19] MEDS: ACETAMINOPHEN 325 MG TABLET PO PRN (10:31)
--- NOTE | 2017-06-19 13:16 | DRAGON STRESS TEST REPORT ---
INTRAVENOUS LEXISCAN CARDIOLITE STRESS TEST USING SINGLE PHOTON EMMISION COMPUTERIZED TOMOGRAPHIC. DATE OF PROCEDURE: June 19, 2017, INDICATION : Chest pain CARDIAC RISK FACTORS: Family history of CAD RESTING EKG: Sinus rhythm without any baseline ST-T wave changes STRESS EKG: No significant changes noted with LexiScan bolus REASON FOR TERMINATION: Protocol. PROCEDURE REPORT: Baseline heart rate 73 beats per minute with blood pressure of 131/89. Patient had no significant complaints. Heart rate at 2 minutes post bolus 112 with a blood pressure of 138/82. 3 minutes post bolus heart rate 105 with blood pressure of 140/82. No significant EKG changes were noted. Patient had no significant complaints during the procedure or postprocedure. Patient injected with Aminophyllin 75 mg at 3 minutes or later after Lexiscan bolus. CONCLUSIONS: Normal EKG and hemodynamic response to IV LexiScan. NUCLEAR DATA: At rest the patient was given 13.82 millicuries of technetium 99 sestamibi injected intravenously. As per protocol rest gated SPECT images were obtained. On day of stress test, the patient was given intravenous LexiScan at a dose of 0.4 mg in 5 mL intravenously, followed by flush with normal saline. Subsequently the stress dose of 40.9 millicuries of technetium 99 sestamibi was injected intravenously. As per protocol stress gated images were obtained. NUCLEAR INTERPRETATION: Both raw and processed data were used for interpretation. Visual, qualitative, computer-generated quantitative data was used. There was good myocardial uptake of technetium compound. Motion artifact and soft tissue attenuations were noted. Increased visceral uptake was noted. No definitive areas of transient perfusion defect noted, No definitive areas of fixed perfusion defect or scars noted. EKG gated imaging showed LV EF at 54 %, rest and stress gated EF similar visually. T. I D. ratio was 1.04. Lung heart ratio noted to be within normal limits 0.33. No significant extracardiac and abnormal radiotracer activities were noted. RV free wall uptake was noted to be WNL. IMPRESSION: Also refer to comments under nuclear interpretation. Also test results needs to be interpreted in the context of pretest probability. 1. No definitive areas of transient perfusion defect noted. 2. There is no definitive scintigraphic evidence of myocardial infarction/scar. 3. EKG gated imaging shows left ventricular ejection fraction of approx. 54 %. 4. Clinical correlation requested as occasionally single vessel disease or balanced ischemia could be missed. In approximately 10% of the cases Lexiscan may not cause adequate vasodilatory stress. RECOMMENDATIONS: Aggressive risk factor modification and medical management. Further evaluation may be needed if continued symptoms or other high risk indicators are noted on clinical evaluation. Close cardiology follow-up is also recommended. Clinical correlation with echocardiogram derived ejection fraction. Inability to exercise by itself can lead to increased cardiovascular event risks. Consider cardiology consultation and or follow-up if clinically indicated. I am available for cardiology evaluation and consultation if requested by the traffic rate clerk, unless patient already has a cigarette seller. ROMA
[2017-06-19 16:05] VITALS: BP 136/90
--- NOTE | 2017-06-19 18:10 | PDOC DISCHARGE SUMMARY ---
General - Admit/Disc Date/PCP Admission Date/Primary Care Provider: 06/17/17 12:45 TERRELL CARROLL PA-C Discharge Date: 06/19/17 - Discharge Diagnosis (1) GERD (gastroesophageal reflux disease) Is this a current diagnosis for this admission?: Yes Summary: Follow up with Dr Santos in GI start omeprazole 20 mg daily (2) Musculoskeletal chest pain Is this a current diagnosis for this admission?: Yes Summary: He has been taking large amounts ibuprofen. (3) Chronic back pain Is this a current diagnosis for this admission?: Yes (4) Chronic migraine Is this a current diagnosis for this admission?: Yes (5) EtOH dependence Is this a current diagnosis for this admission?: Yes Summary: Stop drinking alcohol 5 months ago (6) Hypernatremia Is this a current diagnosis for this admission?: Yes (7) Radiculopathy of cervical spine Is this a current diagnosis for this admission?: Yes - Additional Information Resuscitation Status: Full Code Discharge Diet: Regular Discharge Activity: Activity As Tolerated, Balance Activity w/Rest Home Medications: Diazepam [Valium] 2.5 mg PO Q8HP PRN 06/17/17 L.acidoph,Paracasei, B.lactis [Probiotic] 1 cap PO DAILY 06/17/17 Multivitamin [Multiple Vitamins] 1 tab PO DAILY 06/17/17 Topiramate [Trokendi Xr] 100 mg PO DAILY 06/17/17 History of Present Illness Patient complains of: Midsternal chest pain and epigastric History of Present Illness: ANALI LUNDBERG is a 52 year old male presents with complaint of chest pain. Patient states that he was at his neurologist office addressing his chronic migraine problem when he developed chest pain. states that he has had chest pain off and on for several weeks however today had an episode of chest pain and was directed to the emergency room department. Patient does report that he has problems with acid reflux. Patient states that he belches frequently and has metallic-like taste in mouth at times. Patient also reports that he has been experiencing abdominal pain for the last 1-2 weeks. Patient also states that he had shortness of breath with episode of chest pain he denies any nausea or vomiting. also reports that patient is very anxious and feels that patient could benefit from anxiety medication. states the patient does not have a primary care doctor and therefore the neurologist had directed them to a retail sales manager and then told him to go to the emergency room since he was complaining of chest pain. Patient also reports that he has issues with balance that have been chronic for him. Hospital Course Hospital Course: Patient was admitted to the telemetry floor. He had serial troponins 3 done which were all negative. He was started on PPI therapy and as needed GI cocktail. His symptoms sound more epigastric in nature. Pain has been constant for hours. He has been taking large amount up to 12 ibuprofen tablets daily at the direction of his neurologist for chronic migraine headaches. He certainly could have esophagitis, gastritis or even duodenal ulcers due to this. This showed normal EF of 60-65%. Grade 2/4 diastolic dysfunction. And no valvular abnormalities. Today nuclear stress test was obtained which was negative. Transthoracic echo was obtained. He will be discharged home with follow-up with Dr. Santos Physical Exam Vital Signs: Temp Pulse Resp BP Pulse Ox 97.9 F 83 16 136/90 H 98 06/19/17 15:00 06/19/17 15:00 06/19/17 15:00 06/19/17 15:00 06/19/17 15:00 Intake & Output 06/18/17 06/19/17 06/20/17 06:59 06:59 06:59 Intake Total 1700 1903 Output Total 2035 2100 Balance -335 -197 Weight 89 kg 91.8 kg General appearance: PRESENT: no acute distress, well-developed, well-nourished Head exam: PRESENT: atraumatic, normocephalic Eye exam: PRESENT: conjunctiva pink, EOMI, PERRLA. ABSENT: scleral icterus Ear exam: PRESENT: normal external ear exam Mouth exam: PRESENT: moist, tongue midline Neck exam: ABSENT: carotid bruit, JVD, lymphadenopathy, thyromegaly Respiratory exam: PRESENT: clear to auscultation rosie. ABSENT: rales, rhonchi, wheezes Cardiovascular exam: PRESENT: RRR. ABSENT: diastolic murmur, rubs, systolic murmur Pulses: PRESENT: normal dorsalis pedis pul Vascular exam: PRESENT: normal capillary refill GI/Abdominal exam: PRESENT: normal bowel sounds, soft. ABSENT: distended, guarding, mass, organolmegaly, rebound, tenderness Rectal exam: PRESENT: deferred Extremities exam: PRESENT: full ROM. ABSENT: calf tenderness, clubbing, pedal edema Neurological exam: PRESENT: alert, awake, oriented to person, oriented to place , oriented to time, oriented to situation, CN II-XII grossly intact. ABSENT: motor sensory deficit Psychiatric exam: PRESENT: appropriate affect, normal mood. ABSENT: homicidal ideation, suicidal ideation Skin exam: PRESENT: dry, intact, warm. ABSENT: cyanosis, rash Results Laboratory Results: 06/18/17 03:45 06/18/17 03:45 06/17/17 06/17/17 06/17/17 16:00 16:00 21:38 Creatine Kinase 24 L 25 L Troponin I < 0.012 06/17/17 06/18/17 06/18/17 21:38 03:45 03:45 Creatine Kinase 23 L Troponin I < 0.012 < 0.012 Impressions: Chest X-Ray 06/17/17 11:23 IMPRESSION: NO ACUTE RADIOGRAPHIC FINDING IN THE CHEST. Qualifiers PATEINT BEING DISCHARGED WITH ANY OF THE FOLLOWING DIAGNOSIS?: No
== END 2017-06-19 15:35 | disposition home or self-care (01) ==
LOC: ER 11:20 → EH 12:45 → 4S 17:49
PROVIDERS: ADMIT Emergency Medicine; ATTEND Emergency Medicine
DX: K21.9 Gastro-esophageal reflux disease without esophagitis (principal); R07.89 Other chest pain; G89.29 Other chronic pain; M54.9 Dorsalgia, unspecified; F10.21 Alcohol dependence, in remission; E87.0 Hyperosmolality and hypernatremia; M54.12 Radiculopathy, cervical region; R14.2 Eructation; R06.02 Shortness of breath; R27.8 Other lack of coordination; R26.89 Other abnormalities of gait and mobility; I51.89 Other ill-defined heart diseases; Z79.1 Long term (current) use of non-steroidal anti-inflammatories (NSAID); Z98.890 Other specified postprocedural states; Z98.1 Arthrodesis status
CPT/HCPCS: 93005; 99291; 96365; 96366; 36415 ×2; 82553; 82550 ×2; 82746; 85025 ×2; 80053 ×2; 84484 ×2; 83036; 80061; 93306; 93017; 71045; 78452; 93010; G0378 ×4; A9500; J2785; J1885 ×2; J2270 ×2; J7120 ×2; J0280; Q9969

== ENCOUNTER 2017-10-25 10:15 | Observation (INO) | payer SELFPAY ==
[2017-10-25] MEDS ORDERED: ASPIRIN 81 MG TABLET, CHEWABLE PO ONE (10:48)
[2017-10-25 11:10] LABS: ABSOLUTE LYMPHOCYTES (AUTO) 1.2 10^3/uL (0.5-4.7); ABSOLUTE MONOCYTES (AUTO) 0.4 10^3/uL (0.1-1.4); ABSOLUTE NEUT (AUTO) 3.7 10^3/uL (1.7-8.2); BASOPHILS % (AUTO) 0.4 % (0-2); EOSINOPHILS % (AUTO) 0.4 % (0-6); HEMATOCRIT 47.2 % (37.9-51.0); HEMOGLOBIN 16.4 g/dL (13.5-17.0); LYMPHOCYTES % (AUTO) 22.1 % (13-45); MEAN CORPUSCULAR HEMOGLOBIN 31.9 pg (27.0-33.4); MEAN CORPUSCULAR HGB CONC 34.7 g/dL (32.0-36.0); MEAN CORPUSCULAR VOLUME 92 fl (80-97); MONOCYTES % (AUTO) 8.2 % (3-13); PLATELET COUNT 256 10^3/uL (150-450); RED BLOOD COUNT 5.14 10^6/uL (4.35-5.55); RED CELL DISTRIBUTION WIDTH 13.3 % (11.5-14.0); SEGMENTED NEUTROPHILS % (AUTO) 68.9 % (42-78); TOTAL CELLS COUNTED % (AUTO) 100 %; WHITE BLOOD COUNT 5.4 10^3/uL (4.0-10.5)
[2017-10-25] MEDS ORDERED: LORAZEPAM 1 MG TABLET PO ONE (11:32)
[2017-10-25 11:37] LABS: ALANINE AMINOTRANSFERASE 29 U/L (21-72); ALBUMIN 4.9 g/dL (3.5-5.0); ALKALINE PHOSPHATASE 80 U/L (38-126); ANION GAP 17 (5-19); ASPARTATE AMINO TRANSFERASE 48 U/L (17-59); BILIRUBIN,DIRECT 0.5 mg/dL (0.0-0.4); BILIRUBIN,TOTAL 0.9 mg/dL (0.2-1.3); BLOOD UREA NITROGEN 15 mg/dL (7-20); CARBON DIOXIDE 25 mmol/L (22-30); CHLORIDE 104 mmol/L (98-107); CREATINE KINASE 86 U/L (55-170); GLUCOSE 126 mg/dL (75-110); POTASSIUM 4.2 mmol/L (3.6-5.0); SODIUM 145.8 mmol/L (137-145); TOTAL PROTEIN 8.4 g/dL (6.3-8.2)
--- NOTE | 2017-10-25 11:40 | ER Document Report ---
ED General - General Chief Complaint: Chest Pressure Stated Complaint: CHEST PAIN Time Seen by Provider: 10/25/17 10:47 Mode of Arrival: Medic Information source: Patient Notes: 52-year-old male presents with complaints of chest pressure sensation dizziness and shortness of breath. Symptoms occurred while he was sitting at a graduation for his granddaughter. Patient notes he is currently having difficulty breathing catching his breath. Patient had normal stress test 2 years ago TRAVEL OUTSIDE OF THE [place] IN LAST 30 DAYS: No - HPI Onset: Just prior to arrival Onset/Duration: Sudden Quality of pain: Pressure Severity: Mild Pain Level: 1 Associated symptoms: Chest pain, Shortness of breath Exacerbated by: Denies Relieved by: Other Similar symptoms previously: Yes Recently seen / treated by doctor: No - Related Data Allergies/Adverse Reactions: diphenhydramine HCl [From Benadryl] Allergy (Severe, Verified 06/17/17 17:36) altered mental status Home Medications: no home meds per pt. Past Medical History - Social History Smoking Status: Never Smoker Cigarette use (# per day): No Chew tobacco use (# tins/day): No Smoking Education Provided: No Frequency of alcohol use: None Drug Abuse: None Family History: None. denies: Reviewed & Not Pertinent, Arthritis, CAD, COPD, CVA, Hyperlipidemia, Hypertension, Malignancy, Thyroid Disfunction, Other Patient has suicidal ideation: No Patient has homicidal ideation: No - Past Medical History Cardiac Medical History: Denies: Hx Coronary Artery Disease, Hx Heart Attack, Hx Hypertension Pulmonary Medical History: Denies: Hx Asthma, Hx Bronchitis, Hx COPD, Hx Pneumonia Neurological Medical History: Reports: Hx Migraine. Denies: Hx Cerebrovascular Accident, Hx Seizures Renal/ Medical History: Denies: Hx Peritoneal Dialysis Musculoskeltal Medical History: Denies Hx Arthritis Past Surgical History: Reports: Hx Orthopedic Surgery - fusion in L4-5, Hx Vascular Surgery. Denies: Hx Pacemaker - Immunizations Immunizations up to date: Yes Hx Diphtheria, Pertussis, Tetanus Vaccination: Yes Review of Systems - Review of Systems Notes: REVIEW OF SYSTEMS: CONSTITUTIONAL : Denies fever, chills, or sweats. Denies recent illness. EENT: Denies eye, ear, throat, or mouth pain or symptoms. Denies nasal or sinus congestion or discharge. Denies throat, tongue, or mouth swelling or difficulty swallowing. CARDIOVASCULAR: Denies chest pain. Denies palpitations or racing or irregular heart beat. Denies ankle edema. RESPIRATORY: Denies cough, cold, or chest congestion. Denies shortness of breath, difficulty breathing, or wheezing. GASTROINTESTINAL: Denies abdominal pain or distention. Denies nausea, vomiting , or diarrhea. Denies blood in vomitus, stools, or per rectum. Denies black, tarry stools. Denies constipation. GENITOURINARY: Denies difficulty urinating, painful urination, burning, frequency, blood in urine, or discharge. MUSCULOSKELETAL: Denies back or neck pain or stiffness. Denies joint pain or swelling. SKIN: Denies rash, lesions or sores. HEMATOLOGIC : Denies easy bruising or bleeding. LYMPHATIC: Denies swollen, enlarged glands. NEUROLOGICAL: Denies confusion or altered mental status. Denies passing out or loss of consciousness. Denies dizziness or lightheadedness. Denies headache. Denies weakness or paralysis or loss of use of either side. Denies problems with gait or speech. Denies sensory loss, numbness, or tingling. Denies seizures. PSYCHIATRIC: Denies anxiety or stress. Denies depression, suicidal ideation, or homicidal ideation. ALL OTHER SYSTEMS REVIEWED AND NEGATIVE. Dictation was performed using [employer] voice recognition software PHYSICAL EXAMINATION: GENERAL: Well-appearing, well-nourished and in mild distress. HEAD: Atraumatic, normocephalic. EYES: Pupils equal round and reactive to light, extraocular movements intact, sclera anicteric, conjunctiva are normal. ENT: Nares patent, oropharynx clear without exudates. Moist mucous membranes. NECK: Normal range of motion, supple without lymphadenopathy LUNGS: Breath sounds clear to auscultation bilaterally and equal. No wheezes rales or rhonchi. HEART: Regular rate and rhythm without murmurs ABDOMEN: Soft, nontender, nondistended abdomen. No guarding, no rebound. No masses appreciated. Musculoskeletal: Normal range of motion, no pitting or edema. No cyanosis. NEUROLOGICAL: Cranial nerves grossly intact. Normal speech, normal gait. Normal sensory, motor exams PSYCH: anxious appearing SKIN: Warm, Dry, normal turgor, no rashes or lesions noted. Physical Exam - Vital signs Vitals: Resp Pulse Ox 17 97 10/25/17 10:27 10/25/17 10:27 Course - Re-evaluation Re-evalutation: 10/25/17 11:40 Cardiac workup pending, patient has no signs of a pulmonary emboli, he is extremely anxious, I will give him some Ativan and see how symptoms improve, he was given nitroglycerin which did not improve his pain 10/25/17 15:30 Patient's imaging lab work noted no significant abnormality, patient will be observed in the hospital for an ACS rule out which I believe is appropriate After performing a Medical Screening Examination, I estimate there is LOW risk for RUPTURED ESOPHAGUS, PNEUMOTHORAX, PULMONARY EMBOLISM, ACUTE CORONARY SYNDROME, OR THORACIC AORTIC DISSECTION, thus I consider the discharge disposition reasonable. I have reevaluated this patient multiple times and no significant life threatening changes are noted. The patient and I have discussed the diagnosis and risks, and we agree with discharging home with close follow-up. We also discussed returning to the Emergency Department immediately if new or worsening symptoms occur. We have discussed the symptoms which are most concerning (e.g., bloody sputum, worsening pain or shortness of breath) that necessitate immediate return. - Vital Signs Vital signs: Temp Pulse Resp BP Pulse Ox 16 135/94 H 98 10/25/17 14:01 10/25/17 14:01 10/25/17 14:01 - Laboratory Result Diagrams: 10/25/17 09:40 10/25/17 09:40 Laboratory results interpreted by me: 10/25/17 09:40 Sodium 145.8 H Glucose 126 H Direct Bilirubin 0.5 H Total Protein 8.4 H - Diagnostic Test Radiology reviewed: Image reviewed - Chest x-ray 2 view notes no acute abnormality, Reports reviewed - EKG Interpretation by Me EKG shows normal: Sinus rhythm, [place], Intervals, QRS Complexes Discharge - Discharge Clinical Impression: Chest pain Qualifiers: Chest pain type: unspecified Qualified Code(s): R07.9 - Chest pain, unspecified Condition: Stable Disposition: ADMITTED OBSERVATION Admitting Provider: Hospitalist Unit Admitted: Telemetry
--- NOTE | 2017-10-25 11:43 | RADIOLOGY REPORT (SQ) ---
EXAM DESCRIPTION: CHEST SINGLE VIEW COMPLETED DATE/TIME: 10/25/2017 11:22 am REASON FOR STUDY: chest pain COMPARISON: 06/17/2017 EXAM PARAMETERS: NUMBER OF VIEWS: One view. TECHNIQUE: Single frontal radiographic view of the chest acquired. RADIATION DOSE: NA LIMITATIONS: None. FINDINGS: LUNGS AND PLEURA: No opacities, masses or pneumothorax. No pleural effusion. MEDIASTINUM AND HILAR STRUCTURES: No masses. Contour normal. HEART AND VASCULAR STRUCTURES: Heart normal in size. Normal vasculature. BONES: No acute findings. HARDWARE: None in the chest. OTHER: No other significant finding. IMPRESSION: NO ACUTE RADIOGRAPHIC FINDING IN THE CHEST. TECHNICAL DOCUMENTATION: JOB ID: [id number] [employer]- All Rights Reserved Reading location - IP/workstation name: [email or web address]
[2017-10-25 11:49] LABS: CREATINE KINASE MB 0.31 ng/mL (<4.55); TROPONIN I < 0.012 ng/mL
[2017-10-25] MEDS ORDERED: METOCLOPRAMIDE HCL ORAL SOLN 10 MG/10 ML UDCUP PO ONE (14:05)
[2017-10-25] MEDS ORDERED: LIDOCAINE 2% VISCOUS SOLN 20 ML UDCUP PO ONE (14:05)
[2017-10-25] MEDS ORDERED: MAG HYDROX/AL HYDROX/SIMETH SUSP 30 ML UDCUP PO ONE (14:05)
[2017-10-25] MEDS ORDERED: ONDANSETRON HCL INJ/PF 4 MG/2 ML SDV IV PRN (14:11)
[2017-10-25] MEDS ORDERED: DOCUSATE SODIUM 100 MG CAPSULE PO PRN (14:11)
[2017-10-25] MEDS ORDERED: MORPHINE SULFATE 10 MG/ML INJ IV PRN (14:11)
[2017-10-25] MEDS ORDERED: MAG HYDROX/AL HYDROX/SIMETH SUSP 30 ML UDCUP PO PRN (14:11)
[2017-10-25] MEDS ORDERED: NITROGLYCERIN 0.4 MG/TAB 25 TAB/BOTTLE SL PRN (14:11)
--- NOTE | 2017-10-25 15:08 | PDOC H&P ---
History of Present Illness Admission Date/PCP: 10/25/17 13:33 Patient complains of: Chest pain History of Present Illness: ANALI LUNDBERG is a 52 year old male with a past medical history of hypertension, hyperlipidemia, GA, CVA (November 2016; patient received TPA), complex /ocular migraines, and EtOH dependency who presented to the emergency department today with a complaint of sudden onset chest pain while at rest. The patient reports that he was sitting in a chair at his granddaughter's kindergarten graduation when he felt sudden onset chest pain substernally that radiated to his anterior neck/throat and epigastric region. He reports that he became nauseated, diaphoretic, and dizzy. His family members escorted him outside of the building thinking that perhaps he had become overheated. The patient reports that he then became very weak and he was laid down on the ground. He was transported to [facility] via EMS and provided 324 of aspirin and nitro tabs 3 without relief of his pain. He reports that his pain has gradually lessened but does continue to return with spasm-like episodes causing him to feel like it is difficult to take a deep breath or to swallow. Of note, the patient reports that last night he had a 45 minute episode of left lower quadrant abdominal pain also associated with nausea and diaphoresis. He admits to taking 2400 mg of ibuprofen daily for chronic migraines. He also confirms occasional melena; last occurrence 2 days ago, and frequent bright red blood per rectum that he believes is secondary to hemorrhoids. He reports that he has never been evaluated by GI specialist though does acknowledge that he has been told that his symptoms resemble GI bleeding. Evaluation in the emergency department is unremarkable with essentially normal laboratory workup, negative initial troponin, and normal chest x-ray. The EKG does read as wandering pacemaker; however a significant amount of artifact is noted, will repeat this exam. He is referred to the hospitalist admission for up service for observational admission and chest pain workup. Past Medical History Cardiac Medical History: Reports: Myocardial Infarction, Hyperlipidema, Hypertension Denies: Coronary Artery Disease Pulmonary Medical History: Denies: Asthma, Bronchitis, Chronic Obstructive Pulmonary Disease (COPD), Pneumonia Neurological Medical History: Reports: Ischemic CVA, Migraine Denies: Seizures Endocrine Medical History: Reports: None Renal/ Medical History: Reports: None Malignancy Medical History: Reports: None GI Medical History: Reports: None Musculoskeltal Medical History: Denies: Arthritis Psychiatric Medical History: Reports: Alcohol Dependency, Substance Abuse Hematology: Denies: Anemia Infectious Medical History: Reports: None Past Surgical History Past Surgical History: Reports: Orthopedic Surgery - fusion in L4-5, Vascular Surgery Denies: Pacemaker Social History Information Source: Patient Lives with: Family Smoking Status: Former Smoker Last Time Smoked: 1 year ago Frequency of Alcohol Use: Social Amount of Alcoholic Beverages Per Day: 2-3 mixed drinks weekly Hx Recreational Drug Use: Yes Drugs: Marijuana Hx Prescription Drug Abuse: No - Advance Directive Resuscitation Status: Full Code Surrogate healthcare decision maker:: The patient's , Janet Lundberg Family History Family History: CAD Parental Family History Reviewed: Yes Children Family History Reviewed: Yes Sibling(s) Family History Reviewed.: Yes Medication/Allergy Home Medications: Diazepam [Valium] 2.5 mg PO Q8HP PRN 06/17/17 L.acidoph,Paracasei, B.lactis [Probiotic] 1 cap PO DAILY 06/17/17 Multivitamin [Multiple Vitamins] 1 tab PO DAILY 06/17/17 Topiramate [Trokendi Xr] 100 mg PO DAILY 06/17/17 Allergies/Adverse Reactions: diphenhydramine HCl [From Benadryl] Allergy (Severe, Verified 06/17/17 17:36) altered mental status Review of Systems Constitutional: ABSENT: chills, fever(s), headache(s), weight gain, weight loss Eyes: ABSENT: visual disturbances Ears: ABSENT: hearing changes Cardiovascular: PRESENT: chest pain - Thank you for, other - Diaphoresis is a little thicker than. ABSENT: dyspnea on exertion, edema, orthropnea, palpitations Respiratory: PRESENT: dyspnea. ABSENT: cough, hemoptysis Gastrointestinal: PRESENT: abdominal pain, hematochezia, melena, nausea. ABSENT : constipation, diarrhea, hematemesis, vomiting Genitourinary: ABSENT: dysuria, hematuria Musculoskeletal: ABSENT: joint swelling Integumentary: ABSENT: rash, wounds Neurological: ABSENT: abnormal gait, abnormal speech, confusion, dizziness, focal weakness, syncope Psychiatric: ABSENT: anxiety, depression, homidical ideation, suicidal ideation Endocrine: ABSENT: cold intolerance, heat intolerance, polydipsia, polyuria Hematologic/Lymphatic: ABSENT: easy bleeding, easy bruising Physical Exam Vital Signs: Temp Pulse Resp BP Pulse Ox 15 134/102 H 96 10/25/17 11:00 10/25/17 10:28 10/25/17 11:00 General appearance: PRESENT: no acute distress, cooperative, well-developed, well-nourished Head exam: PRESENT: atraumatic, normocephalic Eye exam: PRESENT: conjunctiva pink, EOMI, PERRLA. ABSENT: scleral icterus Mouth exam: PRESENT: moist, tongue midline Neck exam: ABSENT: carotid bruit, JVD, lymphadenopathy, thyromegaly Respiratory exam: PRESENT: clear to auscultation rosie, symmetrical, unlabored. ABSENT: rales, rhonchi, wheezes Cardiovascular exam: PRESENT: RRR, +S1, +S2. ABSENT: diastolic murmur, rubs, systolic murmur Pulses: PRESENT: normal dorsalis pedis pul Vascular exam: PRESENT: normal capillary refill GI/Abdominal exam: PRESENT: normal bowel sounds, soft. ABSENT: distended, guarding, mass, organolmegaly, rebound, tenderness Extremities exam: PRESENT: full ROM. ABSENT: calf tenderness, clubbing, pedal edema Neurological exam: PRESENT: alert, awake, oriented to person, oriented to place , oriented to time, oriented to situation, CN II-XII grossly intact. ABSENT: motor sensory deficit Psychiatric exam: PRESENT: appropriate affect, normal mood. ABSENT: homicidal ideation, suicidal ideation Skin exam: PRESENT: dry, intact, warm. ABSENT: cyanosis, rash Results Impressions: Chest X-Ray 10/25/17 10:49 IMPRESSION: NO ACUTE RADIOGRAPHIC FINDING IN THE CHEST. Assessment & Plan - Diagnosis (1) Chest pain Is this a current diagnosis for this admission?: Yes Plan: The patient presented with a complaint of sudden onset chest pain associated with dizziness, nausea, diaphoresis, and generalized weakness. The patient has a heart score of 4 with risk factors including previous CVA, GA, hypertension, hyperlipidemia, tobacco history, and EtOH dependence. Although the patient has multiple risk factors and a moderately suspicious story, the appearance of his pain (facial grimacing, attempts to swallow to relieve discomfort, etc) and spasm like occurrences leads me to consider esophageal spasms or esophagitis; this is especially considered as the patient admits to chronic heavy NSAID use. Chest x-ray is benign. EKG appears to have normal sinus rhythm though there is significant artifact and printout reads wandering pacemaker; will obtain repeat EKG. Initial troponin is negative. The patient is admitted to the medical floor on continuous cardiac telemetry. We will trend troponins. We will obtain lipid panel with a.m. labs; hemoglobin A1c was assessed in May 2017: 5.4%. He is placed on daily aspirin and statin therapy. Echocardiogram and nuclear stress test in May 2017 were reassuring. We will consult cardiology to determine necessity of repeating these tests. Appreciate their expert evaluation recommendations. Sublingual nitroglycerin as needed chest pain. IV morphine for unrelieved chest discomfort. We will trial one time GI cocktail and place patient on PPI; consider GI referral if cardiac source of pain is not identified and his discomfort persists. (2) Melena Is this a current diagnosis for this admission?: Yes Plan: The patient reports several weeks to months of intermittent melena and bright red blood per rectum (patient presumes from hemorrhoids). He also endorses daily heavy NSAID use for migraine management. Risk factors for GI bleed also include history of tobacco use and chronic alcohol dependence. Hemoglobin is stable. We will place the patient on PPI. Obtain occult stool. Unfortunately, GI specialty services will not be available at our facility until 10/29. Should the patient's hemoglobin precipitously drop or presence of GI bleeding be objectively confirmed, we will need to consider transfer to tertiary facility. Otherwise, will arrange for the patient to have referral for outpatient follow-up. (3) Chronic migraine Is this a current diagnosis for this admission?: Yes Plan: The patient reports chronic, right-sided migraine with aura and right vision loss occurring 15 days per month. Migraines began following CVA in 2017. He does not currently have a neurologist. Previously has been on Topamax for prevention without noted relief. Therefore, has been managing his migraines with daily NSAID use. Consider daily propanolol for total use; hypertension and migraine prevention. Sumatriptan as needed. (4) EtOH dependence Is this a current diagnosis for this admission?: Yes Plan: The patient admits to a history of daily EtOH use; reports that he used to drink several beers daily but only drinks 2-3 mixed drinks per week. He denies history of EtOH withdrawal. We will observe closely for evidence of withdrawal and institute alcohol withdrawal measures as needed. (5) Hypertension Is this a current diagnosis for this admission?: Yes Plan: The patient does not take home antihypertensive medications. Mildly elevated today; 135/94. We will monitor for need of instituting hypertensive medications. If appropriate, propanolol may provide dual migraine prevention benefit. Cardiology has been consulted for chest pain rule out; appreciate their evaluation recommendations. (6) Hyperlipidemia Is this a current diagnosis for this admission?: Yes Plan: Will obtain lipid panel with a.m. labs. Daily statin therapy. (7) History of CVA (cerebrovascular accident) Is this a current diagnosis for this admission?: Yes Plan: Patient reports CVA November 2016; did receive TPA in our facility and then was subsequently transferred to [facility]. Per patient report, neurologist there did an angiogram and found the clot had been appropriately treated with TPA. Only residual effect is chronic complex migraine with ocular involvement. Resuming daily statin and aspirin therapy. - Time Time Spent: 50 to 70 Minutes Medications reviewed and adjusted accordingly: Yes Anticipated discharge: Home Within: within 24 hours
[2017-10-25] MEDS ORDERED: SUMATRIPTAN SUCCINATE 25 MG TABLET PO PRN (16:30)
--- NOTE | 2017-10-25 20:29 | PDOC CONSULTATION ---
Consultation Consult Date: 10/25/17 Attending physician:: KLAUS ROSAS Consult reason:: Chest pain History of Present Illness Admission Date/PCP: 10/25/17 13:33 Patient complains of: Chest pain History of Present Illness: ANALI LUNDBERG is a 52 year old male with a past medical history of hypertension, hyperlipidemia, [place], CVA (November 2016; patient received TPA), complex /ocular migraines, and EtOH dependency who presented to the emergency department today with a complaint of sudden onset chest pain while at rest. The patient reports that he was sitting in a chair at his granddaughter's kindergarten graduation when he felt sudden onset chest pain substernally that radiated to his anterior neck/throat and epigastric region. He reports that he became nauseated, diaphoretic, and dizzy. His family members escorted him outside of the building thinking that perhaps he had become overheated. The patient reports that he then became very weak and he was laid down on the ground. He was transported to [facility] via EMS and provided 324 of aspirin and nitro tabs 3 without relief of his pain. He reports that his pain has gradually lessened but does continue to return with spasm-like episodes causing him to feel like it is difficult to take a deep breath or to swallow. Of note, the patient reports that last night he had a 45 minute episode of left lower quadrant abdominal pain also associated with nausea and diaphoresis. He admits to taking 2400 mg of ibuprofen daily for chronic migraines. He also confirms occasional melena; last occurrence 2 days ago, and frequent bright red blood per rectum that he believes is secondary to hemorrhoids. He reports that he has never been evaluated by GI specialist though does acknowledge that he has been told that his symptoms resemble GI bleeding. Evaluation in the emergency department is unremarkable with essentially normal laboratory workup, negative initial troponin, and normal chest x-ray. The EKG does read as wandering pacemaker; however a significant amount of artifact is noted, will repeat this exam. He is referred to the hospitalist admission for up service for observational admission and chest pain workup. This history obtained by the hospitalist was reviewed and confirmed. So far patient's EKG has been negative, cardiac enzymes has been negative 3. It seems patient has rather constant chest pains which last approximately an hour or so therefore would have expected troponin eyes to be abnormal. Patient did have a nuclear stress test in [place] of this year which was noted to be negative. Past Medical History Cardiac Medical History: Reports: Hyperlipidema Denies: Coronary Artery Disease, Myocardial Infarction, Hypertension Pulmonary Medical History: Denies: Asthma, Bronchitis, Chronic Obstructive Pulmonary Disease (COPD), Pneumonia Neurological Medical History: Reports: Ischemic CVA, Migraine Denies: Seizures Endocrine Medical History: Reports: None Renal/ Medical History: Reports: None Malignancy Medical History: Reports: None GI Medical History: Reports: None Musculoskeltal Medical History: Denies: Arthritis Psychiatric Medical History: Reports: Alcohol Dependency, Substance Abuse Hematology: Denies: Anemia Infectious Medical History: Reports: None Past Surgical History Past Surgical History: Reports: Orthopedic Surgery - fusion in L4-5, Vascular Surgery Denies: Pacemaker Social History Information Source: Patient Lives with: Family Smoking Status: Never Smoker Last Time Smoked: 1 year ago Frequency of Alcohol Use: Social Hx Recreational Drug Use: Yes Drugs: Marijuana Hx Prescription Drug Abuse: No - Advance Directive Resuscitation Status: Full Code Family History Family History: None. denies: Reviewed & Not Pertinent, Arthritis, CAD, COPD, CVA, Hyperlipidemia, Hypertension, Malignancy, Thyroid Disfunction, Other Parental Family History Reviewed: Yes Children Family History Reviewed: Yes Sibling(s) Family History Reviewed.: Yes - Denies family history of premature coronary artery disease or sudden cardiac in the immediate family members Medication/Allergy Home Medications: No Home Medications 10/25/17 Allergies/Adverse Reactions: diphenhydramine HCl [From Benadryl] Allergy (Severe, Verified 06/17/17 17:36) altered mental status Review of Systems Review of Systems: Please see history of present illness and past medical history as wall. Constitutional: No fever or chills reported. Head : History of frequent migraine headaches, denies recent head injury. Eyes: No recent eye pain, diplopia, redness, discharge, acute visual changes. Ears: No recent chronic ear pain, acute hearing loss, ear discharge. Oral cavity: No recent ulcerations, bleeding, oral cavity discomfort. Neck: No recent acute neck pain reported. Hematologic: No recent easy bruising or bleeding. Lymphatic: No recent lymph node enlargement reported. Cardiovascular system review: See history of present illness. Respiratory system review: No hemoptysis or blood clots in the lungs reported. Mild Shortness of breath on exertion Gastrointestinal system review: History of gastroesophageal reflux, intermittent abdominal pain, epigastric pain, recent melena and bright red blood per rectum Genitourinary system review: No recent acute or chronic hematuria, flank pain, UTI etc. reported. Skin system review: Negative for any recent abnormal bruising, no rash, no pruritus reported. Neurologic: No prior history of strokes, mini strokes, seizure disorder. Psychologic: No history of major psychosis or major depression reported. Musculoskeletal: Describe significant aches and pains. No acute joint swelling reported. Endocrine: No recent polyuria, polydipsia, recent heat or cold intolerance. Physical Exam Vital Signs: Temp Pulse Resp BP Pulse Ox 98.4 F 77 20 127/86 H 99 10/25/17 16:39 10/25/17 16:39 10/25/17 16:39 10/25/17 16:39 10/25/17 16:39 Intake & Output 10/24/17 10/25/17 10/26/17 06:59 06:59 06:59 Weight 87.6 kg Exam: GENERAL: well-nourished and in no acute distress. Alert and oriented x3 HEAD: Atraumatic, normocephalic. EYES: Pupils equal round and reactive to light, extraocular movements intact, sclera anicteric, conjunctiva are normal. ENT: TMs normal, nares patent, oropharynx clear without exudates. Moist mucous membranes. No oral ulcerations or bleeding gums noted NECK: supple without lymphadenopathy. Trachea is central. No cervical or axillary lymphadenopathy noted. Carotids are 2+, JVD WNL LUNGS: Respiration seems nonlabored, no significant accessory muscle action noted. Breath sounds clear to auscultation bilaterally and equal noted. No wheezes rales or rhonchi noted. No significant dullness noted on percussion. CHEST: Palpation of the chest wall shows no significant chest wall tenderness. 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 ABDOMEN: Soft, no significant tenderness appreciated, normoactive bowel sounds. No guarding, no rebound. No rigidity noted . No masses appreciated. EXTREMITIES: Pedal pulses are 1-2+, no calf tenderness noted. No clubbing or cyanosis. negative pedal edema noted NEUROLOGICAL: Focused neurological exam showed no significant neurologic deficit. Normal speech, no focal weakness appreciated. PSYCH: Normal mood, normal affect. Judgment and insight within normal limits. SKIN: No significant ecchymosis, skin is noted to be warm. MUSCULOSKELETAL EXAM: No significant acute joint swelling noted. Results Laboratory Results: 10/25/17 16:00 Lipase 70.3 10/25/17 10/25/17 14:35 16:00 Troponin I < 0.012 < 0.012 EKG Comments: Sinus rhythm, no acute ST-T wave changes are noted. Impressions: Chest X-Ray 10/25/17 10:49 IMPRESSION: NO ACUTE RADIOGRAPHIC FINDING IN THE CHEST. Assessment & Plan - Diagnosis (1) Chest pain Qualifiers: Chest pain type: unspecified Qualified Code(s): R07.9 - Chest pain, unspecified Is this a current diagnosis for this admission?: Yes (2) History of CVA (cerebrovascular accident) Is this a current diagnosis for this admission?: Yes (3) Hyperlipidemia Qualifiers: Hyperlipidemia type: unspecified Qualified Code(s): E78.5 - Hyperlipidemia , unspecified Is this a current diagnosis for this admission?: Yes (4) Hypertension Qualifiers: Hypertension type: essential hypertension Qualified Code(s): I10 - Essential (primary) hypertension Is this a current diagnosis for this admission?: Yes (5) Chronic migraine Is this a current diagnosis for this admission?: Yes (6) GERD (gastroesophageal reflux disease) Qualifiers: Esophagitis presence: esophagitis presence not specified Qualified Code(s) : K21.9 - Gastro-esophageal reflux disease without esophagitis Is this a current diagnosis for this admission?: Yes (7) Musculoskeletal chest pain Is this a current diagnosis for this admission?: Yes - Notes Notes: Patient to be scheduled for a treadmill stress test and a 2D echocardiogram. Chest pain: Patient has prolonged chest pain, while EKGs and enzymes are negative. Feel that most likely noncardiac chest pain. Patient had a recent nuclear stress test which was negative. This will therefore be canceled. Patient told me that he could walk on the treadmill therefore will schedule patient for a exercise treadmill stress test. In the meantime recommend treating patient for other possible causes of chest pain such as gastroesophageal reflux, musculoskeletal pain, anxiety panic disorder etc. Recommend obtaining EKGs with chest pain. Patient may benefit from psych evaluation as he does seem to have significant anxiety overlay. History of cerebrovascular accident: Recommend statin and antiplatelet therapy, Plavix is probably preferred. Hyperlipidemia: Continue statin therapy. Hypertension: Blood pressure goal should be 135/85 or less. Will leave management to hospitalist. Chronic migraine: Recommend prophylactic agents since patient has very frequent migraine and does tend to abuse nonsteroidal anti-inflammatory medication. May consider neurology help in this regard. Gastroesophageal reflux disease: Recommend double dose proton pump inhibitor and GI consultation. Musculoskeletal pain: Could consider muscle relaxant and other analgesics. Naprosyn would be the safest nonsteroidal in most cases but may need GI prophylaxis with it. Aspirin should be taken before Naprosyn on a daily basis. Otherwise could use Plavix for antiplatelet therapy. - Time Time Spent: 30 to 50 Minutes - More than 50% of the time spent coordinating care , discussing management plans with involved caregivers. Management plans discussed with involved personnels. Medical decision making was of moderate to high complexity, patient's has multiple comorbidities. Medications reviewed and adjusted accordingly: Yes
[2017-10-25] MEDS: FAMOTIDINE 20 MG TABLET PO SCH (21:16)
[2017-10-25] MEDS: ATORVASTATIN CALCIUM 20 MG TABLET PO SCH (21:16)
--- NOTE | 2017-10-25 21:51 | EKG REPORT ---
SEVERITY:- OTHERWISE NORMAL ECG - SINUS RHYTHM ATRIAL PREMATURE COMPLEX : Confirmed by: Heidy Kuhn MD 25-Oct-2017 21:50:08
--- NOTE | 2017-10-25 21:51 | EKG REPORT ---
SEVERITY:- ABNORMAL ECG - WANDERING PACEMAKER PAIRED VENTRICULAR PREMATURE COMPLEXES CONSIDER INFERIOR INFARCT : Confirmed by: Heidy Kuhn MD 25-Oct-2017 21:50:22
[2017-10-26 08:11] LABS: ANION GAP 12 (5-19); BLOOD UREA NITROGEN 13 mg/dL (7-20); CALCIUM 9.6 mg/dL (8.4-10.2); CARBON DIOXIDE 27 mmol/L (22-30); CHLORIDE 105 mmol/L (98-107); CHOLESTEROL 197.66 mg/dL (0-200); GLUCOSE 87 mg/dL (75-110); POTASSIUM 4.5 mmol/L (3.6-5.0); SODIUM 144.4 mmol/L (137-145); TRIGLYCERIDES 122 mg/dL (<150)
[2017-10-26 08:21] LABS: DIRECT LDL 125 mg/dL (<100)
[2017-10-26] MEDS ORDERED: METOCLOPRAMIDE HCL ORAL SOLN 10 MG/10 ML UDCUP PO ONE (09:01)
[2017-10-26] MEDS ORDERED: LIDOCAINE 2% VISCOUS SOLN 20 ML UDCUP PO ONE (09:01)
[2017-10-26] MEDS ORDERED: MAG HYDROX/AL HYDROX/SIMETH SUSP 30 ML UDCUP PO ONE (09:01)
[2017-10-26] MEDS: FAMOTIDINE 20 MG TABLET PO SCH (09:22)
[2017-10-26] MEDS ORDERED: ASPIRIN 81 MG TABLET, ENT COATED PO SCH (10:00)
--- NOTE | 2017-10-26 10:14 | RADIOLOGY REPORT (SQ) ---
EXAM DESCRIPTION: CTA CHEST COMPLETED DATE/TIME: 10/26/2017 9:54 am REASON FOR STUDY: Chest pain, Dyspnea COMPARISON: 2016. Recent radiographs. TECHNIQUE: CT scan of the chest performed using helical scanning technique with dynamic intravenous contrast injection. Images reviewed with lung, soft tissue and bone windows. Reconstructed coronal and sagittal MPR images reviewed. Additional 3 dimensional post-processing performed to develop Maximal Intensity Projection images (ID P). All images stored on PACS. All CT scanners at this facility use dose modulation, iterative reconstruction, and/or weight based d osing when appropriate to reduce radiation dose to as low as reasonably achievable (ALARA). [facility]: Dose Right [facility]: CareDose [facility]: Dose Right [facility]: Teradose 4D [facility]: InforcePro CONTRAST TYPE AND DOSE: contrast/concentration: Isovue 370.00 mg/ml; Total Contrast Delivered: 75.0 ml; Total Saline Delivered: 80.0 ml Contrast bolus adequate for pulmonary arteries and aorta. RENAL FUNCTION: GFR > 60. RADIATION DOSE: CT Rad equipment meets quality standard of care and radiation dose reduction techniq ues were employed. CTDIvol: 17.7 - 46.3 mGy. DLP: 757 mGy-cm. . LIMITATIONS: None. FINDINGS: LUNGS AND PLEURA: No masses, infiltrates, pneumothorax. No pleural effusions, calcificati ons. AORTA AND GREAT VESSELS: No aneurysm. Contrast bolus not optimized for the aorta. HEART: No pericardial effusion. No significant coronary artery calcifications. PULMONARY ARTERIES: No emboli visualized in the main pulmonary arteries or the segmental branches. HILAR AND MEDIASTINAL STRUCTURES: No identified masses or abnormal nodes. HARDWARE: None in the chest. UPPER ABDOMEN: No significant findings. Limited exam. THYROID AND OTHER SOFT TISSUES: No masses. No adenopathy. BONES: No acute or significant finding. 3D MIPS: Confirm above findings. OTHER: No other significant finding. IMPRESSION: NORMAL CTA OF THE CHEST. NO PULMONARY EMBOLI. COMMENT: Quality ID # [id number]: Final reports with documentation of one or more dose reduction techniques (e.g., Automated exposure control, adjustment of the mA and/or kV according to patient size, use of iterative reconstruction technique) TECHNICAL DOCUMENTATION: JOB ID: [id number] [employer] All Rights Reserved Reading location - IP/workstation name: [email or web address]
--- NOTE | 2017-10-26 14:06 | DRAGON STRESS TEST REPORT ---
REST ONLY SINGLE PHOTON EMMISION COMPUTERIZED TOMOGRAPHIC. DATE OF PROCEDURE: October 26, 2017, INDICATION : Chest pain RESTING EKG: Sinus rhythm without any baseline ST-T wave changes. STRESS EKG: No significant ST segment changes noted with LexiScan bolus NUCLEAR DATA: At rest the patient was given 11.0 millicuries of technetium 99 sestamibi injected intravenously. As per protocol rest gated SPECT images were obtained. A stress imaging was not obtained as patient was noted to have almost continuous chest pain mild having the rest images being performed. NUCLEAR INTERPRETATION: Both raw and processed data were used for interpretation. Visual, qualitative, computer-generated quantitative data was used. There was good myocardial uptake of technetium compound. Motion artifact and soft tissue attenuations were noted. Increased visceral uptake was noted. No definitive areas of rest perfusion defect noted. Small area of mild decreased uptake noted in the LV apex, this can be explained by normal apical thinning. Also there was no apical hypokinesia on gated imaging. EKG gated imaging showed LV EF at 52%. Lung heart ratio noted to be within normal limits 0.39. No significant extracardiac and abnormal radiotracer activities were noted. RV free wall uptake was noted to be WNL. IMPRESSION: Also refer to comments under nuclear interpretation. Also test results needs to be interpreted in the context of pretest probability. 1. Rest imaging did not show any definitive rest perfusion defect. 2. EKG gated imaging shows normal LVEF at 52% without any definitive wall motion abnormalities. 3. Please note that patient had rather constant chest pain since after injection and while rest imaging performed. RECOMMENDATIONS: Further evaluation may be needed if continued symptoms or other high risk indicators are noted on clinical evaluation. Close cardiology follow-up is also recommended. Clinical correlation with echocardiogram derived ejection fraction. Inability to exercise by itself can lead to increased cardiovascular event risks. Consider cardiology consultation and or follow-up if clinically indicated. I am available for cardiology evaluation and consultation if requested by the tooling supervisor, unless patient already has a liquefied natural gas operator. ROMA
[2017-10-26] MEDS ORDERED: ACETAMINOPHEN 325 MG TABLET ONE (14:13)
--- NOTE | 2017-10-26 14:19 | PDOC PROGRESS REPORT ---
Subjective Progress Note for:: 10/26/17 Subjective:: Patient was seen in the morning after he had completed the rest imaging and had gone back to his room. Rest imaging was negative for any perfusion defect at rest. Patient has a rather constant chest pain which in the absence of EKG changes and troponin I elevation makes it unlikely to be cardiac. Patient was actually scheduled for a treadmill stress test and I believe that the nuclear stress test was canceled last night but inadvertently, the rest images were performed earlier this morning. I was called that the patient was still having rather constant chest pain. I gave the nuclear tech to send the patient back. Patient was supposed have just a treadmill stress test rather than nuclear stress test however it seems we cannot do treadmill because of staffing issues during the weekend. This can be completed on Saturday or later on if absolutely needed but my suspicion for his chest pain being cardiac in etiology is somewhat on the low side. Did recommend that a 2D echo and a cardiac CTA to be performed. Reason For Visit: CHEST PAIN Physical Exam Vital Signs: Temp Pulse Resp BP Pulse Ox 97.2 F 66 16 117/72 97 10/26/17 11:35 10/26/17 11:35 10/26/17 11:35 10/26/17 11:35 10/26/17 11:35 Intake & Output 10/25/17 10/26/17 10/27/17 06:59 06:59 06:59 Intake Total 350 Balance 350 Weight 88.2 kg Exam: GENERAL: well-nourished and in no acute distress. Alert and oriented x3 HEAD: Atraumatic, normocephalic. EYES: Pupils equal round and reactive to light, extraocular movements intact, sclera anicteric, conjunctiva are normal. ENT: TMs normal, nares patent, oropharynx clear without exudates. Moist mucous membranes. No oral ulcerations or bleeding gums noted NECK: supple without lymphadenopathy. Trachea is central. No cervical or axillary lymphadenopathy noted. Carotids are 2+, JVD WNL LUNGS: Respiration seems nonlabored, no significant accessory muscle action noted. Breath sounds clear to auscultation bilaterally and equal noted. No wheezes rales or rhonchi noted. No significant dullness noted on percussion. CHEST: Palpation of the chest wall shows no significant chest wall tenderness. 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 ABDOMEN: Soft, epigastric tenderness appreciated, normoactive bowel sounds. No guarding, no rebound. No rigidity noted . No masses appreciated. EXTREMITIES: Pedal pulses are 1-2+, no calf tenderness noted. No clubbing or cyanosis. negative pedal edema noted NEUROLOGICAL: Focused neurological exam showed no significant neurologic deficit. Normal speech, no focal weakness appreciated. PSYCH: Normal mood, normal affect. Judgment and insight within normal limits. SKIN: No significant ecchymosis, skin is noted to be warm. MUSCULOSKELETAL EXAM: No significant acute joint swelling noted. Results Laboratory Results: 10/26/17 06:57 10/25/17 10/26/17 16:00 06:57 Sodium 144.4 Potassium 4.5 Chloride 105 Carbon Dioxide 27 Anion Gap 12 BUN 13 Creatinine 0.99 Est GFR ( Amer) > 60 Est GFR (Non-Af Amer) > 60 Glucose 87 Calcium 9.6 Triglycerides 122 Cholesterol 197.66 LDL Cholesterol Direct 125 H VLDL Cholesterol 24.0 HDL Cholesterol 44 Lipase 70.3 10/25/17 10/25/17 10/25/17 14:35 16:00 22:07 Troponin I < 0.012 < 0.012 < 0.012 Impressions: Chest X-Ray 10/25/17 10:49 IMPRESSION: NO ACUTE RADIOGRAPHIC FINDING IN THE CHEST. Chest/Abdomen CTA 10/26/17 09:07 IMPRESSION: NORMAL CTA OF THE CHEST. NO PULMONARY EMBOLI. Assessment & Plan - Diagnosis (1) Chest pain Qualifiers: Chest pain type: unspecified Qualified Code(s): R07.9 - Chest pain, unspecified Is this a current diagnosis for this admission?: Yes (2) History of CVA (cerebrovascular accident) Is this a current diagnosis for this admission?: Yes (3) Hyperlipidemia Qualifiers: Hyperlipidemia type: unspecified Qualified Code(s): E78.5 - Hyperlipidemia , unspecified Is this a current diagnosis for this admission?: Yes (4) Hypertension Qualifiers: Hypertension type: essential hypertension Qualified Code(s): I10 - Essential (primary) hypertension Is this a current diagnosis for this admission?: Yes (5) Chronic migraine Is this a current diagnosis for this admission?: Yes (6) GERD (gastroesophageal reflux disease) Qualifiers: Esophagitis presence: esophagitis presence not specified Qualified Code(s) : K21.9 - Gastro-esophageal reflux disease without esophagitis Is this a current diagnosis for this admission?: Yes (7) Musculoskeletal chest pain Is this a current diagnosis for this admission?: Yes - Notes Notes: Chest pain: [place] to be mostly noncardiac based on previous nuclear stress being negative in May 2017. Also patient has so far negative enzymes and negative EKGs. Recommend evaluating patient for possible distal esophagitis, gastritis, musculoskeletal pain, anxiety panic disorder etc. If other causes are ruled out, may consider walking patient on the treadmill and do a plain stress EKG. Hyperlipidemia: Continue high potency statin therapy. Hypertension: Continue antihypertensive with blood pressure goal of 135/85 or less. Chronic migraine: Patient abusing nonsteroidal. May consider prophylactic agents such as topiramate. Gastroesophageal reflux disease: Recommend double dose proton pump inhibitor and GI evaluation. Musculoskeletal pain: Better option could be Naprosyn. Have switched patient to Plavix in view of interaction between aspirin and nonsteroidal anti- inflammatory medications. - Time Time with patient: Greater than 35 minutes - CODE STATUS was discussed, patient remains full code. Surrogate decision-maker patient's spouse. Multiple medical problems were addressed. More than 50% of the time spent coordinating care, discussing management plans with involved caregivers. Management plans discussed with involved personnels. Medical decision making was of moderate to high complexity, patient's has multiple comorbidities. Medications reviewed and adjusted accordingly: Yes
[2017-10-26] MEDS ORDERED: ACETAMINOPHEN 325 MG TABLET PO PRN (14:20)
--- NOTE | 2017-10-26 16:23 | EKG REPORT ---
SEVERITY:- BORDERLINE ECG - BORDERLINE RIGHT AXIS DEVIATION SINUS RHYTHM : Confirmed by: Heidy Kuhn MD 26-Oct-2017 16:22:24
--- NOTE | 2017-10-26 16:26 | XCELERA REPORT ---
[address] [address] Transthoracic Echocardiogram Report Name: ANALI LUNDBERG Age: 52 yrs Gender: Male : 1965 Patient Status: Inpatient Patient Location: [address] [place] [address] Study Date: 10/26/2017 11:17 AM Height: 70 in Weight: 194 lb BSA: 2.1 m2 Procedure: A complete two-dimensional transthoracic echocardiogram was performed (2D, M-mode, spectral and color flow Doppler). The study was technically adequate with some images being suboptimal in quality. Reason For Study: Chest pain at stress test Ordering Physician: KARIE MAURO Performed By: Porsche Rudolph Interpretation Summary The left ventricular ejection fraction is normal. There is borderline concentric left ventricular hypertrophy. The left ventricle is grossly normal size. Doppler measurements suggest pseudonormalized left ventricular relaxation, which is associated with grade II/IV or mild to moderate diastolic dysfunction No regional wall motion abnormalities noted. The right ventricular systolic function is normal. The right atrium is normal in size The left atrial size is normal. There is no mitral valve stenosis. There is a trace amount of mitral regurgitation No aortic regurgitation is present. There is no aortic valve stenosis There is a trace or physiologic amount of tricuspid regurgitation Tricuspid regurgitation jet envelope not well defined to measure RV systolic pressure accurately. The aortic root is not well visualized but is probably normal size. The inferior vena cava appeared normal and decreased > 50% with respiration (RAP 5-10 mmHg) There is no pericardial effusion. MMode/2D Measurements & Calculations RVDd: 4.1 cm LVIDd: 4.8 cm FS: 46.3 % Ao root diam: 3.1 cm IVSd: 0.98 cm LVIDs: 2.6 cm EDV(Teich): 106.8 ml LVPWd: 1.0 cm ESV(Teich): 24.0 ml Ao root area: 7.8 cm2 EF(Teich): 77.6 % LA dimension: 3.0 cm Doppler Measurements & Calculations MV E max delmy: MV P1/2t max delmy: Ao V2 max: LV V1 max P.6 cm/sec 64.7 cm/sec 115.5 cm/sec 5.1 mmHg MV A max delmy: MV P1/2t: 81.5 msec Ao max PG: LV V1 max: 57.8 cm/sec 5.3 mmHg 112.5 cm/sec MV E/A: 1.2 MVA(P1/2t): 2.7 cm2 MV dec slope: 232.4 cm/sec2 MV dec time: 0.27 sec PA V2 max: 87.9 cm/sec PA max P.1 mmHg Left Ventricle The left ventricle is grossly normal size. There is borderline concentric left ventricular hypertrophy. The left ventricular ejection fraction is normal. Doppler measurements suggest pseudonormalized left ventricular relaxation, which is associated with grade II/IV or mild to moderate diastolic dysfunction. No regional wall motion abnormalities noted. Right Ventricle The right ventricle is grossly normal size. There is normal right ventricular wall thickness. The right ventricular systolic function is normal. Atria The right atrium is normal in size. The left atrial size is normal. Interarterial septum not well visualized and not well dopplered. Cannot comment on ASD/PFO presence. Mitral Valve The mitral valve is grossly normal. There is no mitral valve stenosis. There is a trace amount of mitral regurgitation. Aortic Valve The aortic valve is grossly normal. There is no aortic valve stenosis. No aortic regurgitation is present. Tricuspid Valve The tricuspid valve is not well visualized, but is grossly normal. There is no tricuspid stenosis. There is a trace or physiologic amount of tricuspid regurgitation. Tricuspid regurgitation jet envelope not well defined to measure RV systolic pressure accurately. Pulmonic Valve The pulmonic valve is not well visualized. Great Vessels The aortic root is not well visualized but is probably normal size. The inferior vena cava appeared normal and decreased > 50% with respiration (RAP 5-10 mmHg). Effusions There is no pericardial effusion. : KARIE MAURO > Karie Mauro
[2017-10-26] MEDS ORDERED: DIAZEPAM 2 MG TABLET PO PRN (19:22)
--- NOTE | 2017-10-26 19:25 | PDOC PROGRESS REPORT ---
Subjective Progress Note for:: 10/26/17 Subjective:: The patient is a 52-year-old male with past medical history significant for hypertension, hyperlipidemia, MA, CVA, complex/ocular migraines, and EtOH dependency who was admitted on 10/25/17 for chest pain. Patient is seen on rounds with his present. He is found resting in bed comfortably on room air. He reports that he had additional episode of chest pain while down for his nuclear stress test. Since then he has felt relatively comfortable, but does continue to have occasional spasms though resolved quickly and are not as severe. He denies headache, dizziness, palpitations, dyspnea, orthopnea, abdominal pain, nausea, vomiting, diarrhea. He does endorse reflux. Reason For Visit: CHEST PAIN Physical Exam Vital Signs: Temp Pulse Resp BP Pulse Ox 97.2 F 89 16 117/72 97 10/26/17 11:35 10/26/17 14:00 10/26/17 11:35 10/26/17 11:35 10/26/17 11:35 Intake & Output 10/25/17 10/26/17 10/27/17 06:59 06:59 06:59 Intake Total 350 10 Balance 350 10 Weight 88.2 kg General appearance: PRESENT: no acute distress, well-developed, well-nourished, other - Overweight Head exam: PRESENT: atraumatic, normocephalic Eye exam: PRESENT: conjunctiva pink, EOMI, PERRLA. ABSENT: scleral icterus Ear exam: PRESENT: normal external ear exam Mouth exam: PRESENT: moist, tongue midline Neck exam: ABSENT: carotid bruit, JVD, lymphadenopathy, thyromegaly Respiratory exam: PRESENT: clear to auscultation rosie, symmetrical, unlabored. ABSENT: rales, rhonchi, wheezes Cardiovascular exam: PRESENT: RRR, +S1, +S2. ABSENT: diastolic murmur, rubs, systolic murmur Pulses: PRESENT: normal dorsalis pedis pul Vascular exam: PRESENT: normal capillary refill GI/Abdominal exam: PRESENT: normal bowel sounds, soft. ABSENT: distended, guarding, mass, organolmegaly, rebound, tenderness Rectal exam: PRESENT: deferred Extremities exam: PRESENT: full ROM. ABSENT: calf tenderness, clubbing, pedal edema Neurological exam: PRESENT: alert, awake, oriented to person, oriented to place , oriented to time, oriented to situation, CN II-XII grossly intact. ABSENT: motor sensory deficit Psychiatric exam: PRESENT: appropriate affect, normal mood. ABSENT: homicidal ideation, suicidal ideation Skin exam: PRESENT: dry, intact, warm. ABSENT: cyanosis, rash Results Laboratory Results: 10/26/17 06:57 10/26/17 10/26/17 06:57 13:55 Sodium 144.4 Potassium 4.5 Chloride 105 Carbon Dioxide 27 Anion Gap 12 BUN 13 Creatinine 0.99 Est GFR ( Amer) > 60 Est GFR (Non-Af Amer) > 60 Glucose 87 Calcium 9.6 Triglycerides 122 Cholesterol 197.66 LDL Cholesterol Direct 125 H VLDL Cholesterol 24.0 HDL Cholesterol 44 Stool Occult Blood POSITIVE 10/25/17 10/25/17 10/25/17 14:35 16:00 22:07 Troponin I < 0.012 < 0.012 < 0.012 10/26/17 15:22 Troponin I < 0.012 Impressions: Chest X-Ray 10/25/17 10:49 IMPRESSION: NO ACUTE RADIOGRAPHIC FINDING IN THE CHEST. Chest/Abdomen CTA 10/26/17 09:07 IMPRESSION: NORMAL CTA OF THE CHEST. NO PULMONARY EMBOLI. Assessment & Plan - Diagnosis (1) Chest pain Qualifiers: Chest pain type: unspecified Qualified Code(s): R07.9 - Chest pain, unspecified Is this a current diagnosis for this admission?: Yes Plan: The patient presented with a complaint of sudden onset chest pain associated with dizziness, nausea, diaphoresis, and generalized weakness. The patient has a heart score of 4 with risk factors including previous CVA, MA, hypertension, hyperlipidemia, tobacco history, and EtOH dependence. Although the patient has multiple risk factors and a moderately suspicious story, the appearance of his pain (facial grimacing, attempts to swallow to relieve discomfort, etc) and spasm like occurrences leads me to consider esophageal spasms or esophagitis; this is especially considered as the patient admits to chronic heavy NSAID use. Chest x-ray is benign. EKG demonstrates sinus rhythm. Troponins are negative x 5 Echocardiogram reveals a normal LVEF with mild to moderate diastolic dysfunction. Resting portion of nuclear stress test is normal; has had to be suspended early secondary to active chest pain. Lipid panel is acceptable. Echocardiogram and nuclear stress test in May 2017 also reassuring. The patient is admitted to the medical floor on continuous cardiac telemetry. Cardiology has been consulted; appreciate their expert evaluation recommendations. Sublingual nitroglycerin as needed chest pain. IV morphine for unrelieved chest discomfort. Following initial cardiac workup; it is less likely that the patient's symptoms are related to acute coronary syndrome and rather is related to esophagitis, gastritis, or esophageal spasms. His discomfort improved rapidly following GI cocktail. He is placed on twice daily PPI and Carafate. (2) GI bleed due to NSAIDs Is this a current diagnosis for this admission?: Yes Plan: The patient reports several weeks to months of intermittent melena and bright red blood per rectum (patient presumes from hemorrhoids). He also endorses daily heavy NSAID use for migraine management. Risk factors for GI bleed also include history of tobacco use and chronic alcohol dependence. Hemoglobin is stable. Hemoccult positive. We will place the patient on twice daily PPI. Initiate Carafate. I did speak with the surgical team today as we do not have gastroenterology service is available. Dr. Rodriguez recommends the patient be placed on twice daily PPI and Carafate. As the patient's labs and vital signs are stable, he may be discharged for outpatient follow-up EGD/colonoscopy. (3) Chronic migraine Is this a current diagnosis for this admission?: Yes Plan: The patient reports chronic, right-sided migraine with aura and right vision loss occurring 15 days per month. Migraines began following CVA in 2017. He does not currently have a neurologist. Previously has been on Topamax for prevention without noted relief. Therefore, has been managing his migraines with daily NSAID use. Consider daily propanolol for dual purpose; hypertension and migraine prevention. Sumatriptan as needed. (4) EtOH dependence Is this a current diagnosis for this admission?: Yes Plan: The patient admits to a history of daily EtOH use; reports that he used to drink several beers daily but only drinks 2-3 mixed drinks per week. He denies history of EtOH withdrawal. We will observe closely for evidence of withdrawal and institute alcohol withdrawal measures as needed. Valium 2 mg every 6 hours as needed. (5) Hypertension Qualifiers: Hypertension type: essential hypertension Qualified Code(s): I10 - Essential (primary) hypertension Is this a current diagnosis for this admission?: Yes Plan: The patient does not take home antihypertensive medications. Normotensive at present.. We will monitor for need of instituting hypertensive medications. If appropriate, propanolol may provide dual migraine prevention benefit. Cardiology has been consulted for chest pain rule out; appreciate their evaluation recommendations. (6) Hyperlipidemia Qualifiers: Hyperlipidemia type: unspecified Qualified Code(s): E78.5 - Hyperlipidemia , unspecified Is this a current diagnosis for this admission?: Yes Plan: Lipid panel is appropriate. Encouraged lifestyle modifications. Daily statin therapy. (7) History of CVA (cerebrovascular accident) Is this a current diagnosis for this admission?: Yes Plan: Patient reports CVA November 2016; did receive TPA in our facility and then was subsequently transferred to [facility]. Per patient report, neurologist there did an angiogram and found the clot had been appropriately treated with TPA. Only residual effect is chronic complex migraine with ocular involvement. Resuming daily statin and aspirin therapy. (8) Melena Is this a current diagnosis for this admission?: Yes Plan: As above. - Time Medications reviewed and adjusted accordingly: Yes Anticipated discharge: Home Within: within 24 hours - Plan Summary Plan Summary: Discussed NSAID induced upper GI bleed with surgical team today; approved for discharge with outpatient follow-up. Will follow-up with cardiology tomorrow regarding incomplete stress testing. Anticipate that cardiology will also approve discharge in the morning.
[2017-10-26] MEDS: PANTOPRAZOLE SODIUM 40 MG VIAL IV SCH (21:40)
[2017-10-26] MEDS: ATORVASTATIN CALCIUM 20 MG TABLET PO SCH (21:40)
[2017-10-26] MEDS: SUCRALFATE SUSP 1 GM/10 ML UDCUP PO SCH (23:25)
[2017-10-27 05:04] LABS: HEMATOCRIT 42.6 % (37.9-51.0); MEAN CORPUSCULAR HEMOGLOBIN 32.1 pg (27.0-33.4); MEAN CORPUSCULAR HGB CONC 35.3 g/dL (32.0-36.0); MEAN CORPUSCULAR VOLUME 91 fl (80-97); PLATELET COUNT 227 10^3/uL (150-450); RED BLOOD COUNT 4.69 10^6/uL (4.35-5.55); RED CELL DISTRIBUTION WIDTH 13.1 % (11.5-14.0)
[2017-10-27] MEDS: SUCRALFATE SUSP 1 GM/10 ML UDCUP PO SCH (05:58)
[2017-10-27] MEDS: PANTOPRAZOLE SODIUM 40 MG VIAL IV SCH (09:59)
[2017-10-27] MEDS ORDERED: CLOPIDOGREL BISULFATE 300 MG TABLET PO SCH (10:00)
--- NOTE | 2017-10-27 10:34 | PDOC DISCHARGE SUMMARY ---
General - Admit/Disc Date/PCP Admission Date/Primary Care Provider: 10/25/17 13:33 Discharge Date: 10/27/17 - Discharge Diagnosis (1) Chest pain Is this a current diagnosis for this admission?: Yes (2) GI bleed due to NSAIDs Is this a current diagnosis for this admission?: Yes (3) Chronic migraine Is this a current diagnosis for this admission?: Yes (4) EtOH dependence Is this a current diagnosis for this admission?: Yes (5) Hypertension Is this a current diagnosis for this admission?: Yes (6) Hyperlipidemia Is this a current diagnosis for this admission?: Yes (7) History of CVA (cerebrovascular accident) Is this a current diagnosis for this admission?: Yes (8) Melena Is this a current diagnosis for this admission?: Yes - Additional Information Resuscitation Status: Full Code Discharge Diet: Regular, Other (Comments) - avoid caffiene, tobacco, and alcohol Discharge Activity: Activity As Tolerated Prescriptions: Atorvastatin Calcium [Lipitor 20 mg Tablet] 20 mg PO QHS #30 tablet Diazepam [Valium 2 mg Tablet] 2 mg PO Q6HP PRN #12 tablet PRN Reason: Docusate Sodium [Colace 100 mg Capsule] 100 mg PO DAILYP PRN #30 capsule PRN Reason: Pantoprazole Sodium [Protonix] 20 mg PO BID #60 tablet. Propranolol HCl [Inderal 40 Mg Tablet] 40 mg PO DAILY #30 tablet Sucralfate [Carafate] 1 gm PO Q6H #420 ml Sumatriptan Succinate [Imitrex 50 mg Tablet] 50 mg PO ASDIR PRN #20 tablet PRN Reason: Home Medications: Acetaminophen [Tylenol 325 mg Tablet] 650 mg PO Q4HP PRN tablet 10/27/17 Atorvastatin Calcium [Lipitor 20 mg Tablet] 20 mg PO QHS #30 tablet 10/27/17 Diazepam [Valium 2 mg Tablet] 2 mg PO Q6HP PRN #12 tablet 10/27/17 Docusate Sodium [Colace 100 mg Capsule] 100 mg PO DAILYP PRN #30 capsule Pantoprazole Sodium [Protonix] 20 mg PO BID #60 tablet. 10/27/17 Propranolol HCl [Inderal 40 Mg Tablet] 40 mg PO DAILY #30 tablet 10/27/17 Sucralfate [Carafate] 1 gm PO Q6H #420 ml 10/27/17 Sumatriptan Succinate [Imitrex 50 mg Tablet] 50 mg PO ASDIR PRN #20 tablet 10/27 History of Present Illness History of Present Illness: ANALI LUNDBERG is a 52 year old male with a past medical history of hypertension, hyperlipidemia, ME, CVA (November 2016; patient received TPA), complex /ocular migraines, and EtOH dependency who presented to the emergency department today with a complaint of sudden onset chest pain while at rest. The patient reports that he was sitting in a chair at his granddaughter's kindergarten graduation when he felt sudden onset chest pain substernally that radiated to his anterior neck/throat and epigastric region. He reports that he became nauseated, diaphoretic, and dizzy. His family members escorted him outside of the building thinking that perhaps he had become overheated. The patient reports that he then became very weak and he was laid down on the ground. He was transported to [facility] via EMS and provided 324 of aspirin and nitro tabs 3 without relief of his pain. He reports that his pain has gradually lessened but does continue to return with spasm-like episodes causing him to feel like it is difficult to take a deep breath or to swallow. Of note, the patient reports that last night he had a 45 minute episode of left lower quadrant abdominal pain also associated with nausea and diaphoresis. He admits to taking 2400 mg of ibuprofen daily for chronic migraines. He also confirms occasional melena; last occurrence 2 days ago, and frequent bright red blood per rectum that he believes is secondary to hemorrhoids. He reports that he has never been evaluated by GI specialist though does acknowledge that he has been told that his symptoms resemble GI bleeding. Evaluation in the emergency department is unremarkable with essentially normal laboratory workup, negative initial troponin, and normal chest x-ray. The EKG does read as wandering pacemaker; however a significant amount of artifact is noted, will repeat this exam. He is referred to the hospitalist admission for up service for observational admission and chest pain workup. Hospital Course Hospital Course: The patient was admitted for chest pain workup secondary to multiple cardiac risk factors. Of note, he had a normal echocardiogram and cardiac stress test in May 2017. EKG was negative for ischemia or infarction. CT of the chest was benign. Echocardiogram revealed a normal LVEF, mild concentric left ventricular hypertrophy, and mild to moderate diastolic dysfunction. The resting portion of nuclear stress test was normal. Testing was suspended secondary to onset of chest pain. The patient's history and symptoms are strongly suspicious for esophagitis/ gastritis/PUD. The patient admits to daily Motrin 2400 mg for the past several months and heavy alcohol intake. The patient also reports a recent history of melena as well as occasional bright red blood with stools. Hemoccult was positive. CBCs were monitored; hemoglobin is stable. Gastroenterology services were unavailable, therefore the Surgicalist's opinion was sought. As the patient is hemodynamically stable medications were to began twice daily PPI, Carafate, hold aspirin and Plavix therapy, and follow-up as an outpatient for evaluation with EGD and colonoscopy. Plan of care was reviewed with the patient who was amenable to discharge to home with close outpatient follow-up. He is provided prescriptions for atorvastatin, Valium (management of anxiety, agitation, EtOH withdrawal), Colace, Protonix twice daily, Carafate, Imitrex, and propanolol (selected for hypertension, potential migraine prophylaxis, anxiety, and use in GI bleeding related to varices). Warning signs and red flags to prompt the patient to return to the emergency department immediately were reviewed. At time of discharge, the patient is in stable condition, pain-free, and tolerating a regular diet. Physical Exam Vital Signs: Temp Pulse Resp BP Pulse Ox 97.4 F 70 16 122/74 99 10/27/17 07:44 10/27/17 07:44 10/27/17 07:44 10/27/17 07:44 10/27/17 07:44 Intake & Output 10/26/17 10/27/17 10/28/17 06:59 06:59 06:59 Intake Total 350 689 Balance 350 689 Weight 88.2 kg 88.2 kg General appearance: PRESENT: no acute distress, well-developed, well-nourished Head exam: PRESENT: atraumatic, normocephalic Eye exam: PRESENT: conjunctiva pink, EOMI, PERRLA. ABSENT: scleral icterus Ear exam: PRESENT: normal external ear exam Mouth exam: PRESENT: moist, tongue midline Neck exam: ABSENT: carotid bruit, JVD, lymphadenopathy, thyromegaly Respiratory exam: PRESENT: clear to auscultation rosie. ABSENT: rales, rhonchi, wheezes Cardiovascular exam: PRESENT: RRR. ABSENT: diastolic murmur, rubs, systolic murmur Pulses: PRESENT: normal dorsalis pedis pul Vascular exam: PRESENT: normal capillary refill GI/Abdominal exam: PRESENT: normal bowel sounds, soft. ABSENT: distended, guarding, mass, organolmegaly, rebound, tenderness Rectal exam: PRESENT: heme (+) stool Extremities exam: PRESENT: full ROM. ABSENT: calf tenderness, clubbing, pedal edema Neurological exam: PRESENT: alert, awake, oriented to person, oriented to place , oriented to time, oriented to situation, CN II-XII grossly intact. ABSENT: motor sensory deficit Psychiatric exam: PRESENT: appropriate affect, normal mood. ABSENT: homicidal ideation, suicidal ideation Skin exam: PRESENT: dry, intact, warm. ABSENT: cyanosis, rash Results Laboratory Results: 10/27/17 04:15 10/26/17 06:57 10/26/17 10/27/17 13:55 04:15 WBC 7.0 RBC 4.69 Hgb 15.0 Hct 42.6 MCV 91 MCH 32.1 MCHC 35.3 RDW 13.1 Plt Count 227 Stool Occult Blood POSITIVE 10/25/17 10/25/17 10/25/17 14:35 16:00 22:07 Troponin I < 0.012 < 0.012 < 0.012 10/26/17 15:22 Troponin I < 0.012 Impressions: Chest X-Ray 10/25/17 10:49 IMPRESSION: NO ACUTE RADIOGRAPHIC FINDING IN THE CHEST. Chest/Abdomen CTA 10/26/17 09:07 IMPRESSION: NORMAL CTA OF THE CHEST. NO PULMONARY EMBOLI. Qualifiers - * PATIENT BEING DISCHARGED WITH ANY OF THE FOLLOWING DIAGNOSIS: No Plan Discharge Plan: Discharged home with self-care. Follow-up with gastroenterology within 1-2 weeks. Follow-up with cardiology as needed. Follow-up with neurology as needed.
[2017-10-27 11:21] VITALS: BP 125/87
== END 2017-10-27 11:10 | disposition home or self-care (01) ==
LOC: ER 10:15 → EH 13:33 → 4S 15:29
PROVIDERS: ADMIT Internal Medicine; ATTEND Internal Medicine
DX: R07.2 Precordial pain (principal); K92.2 Gastrointestinal hemorrhage, unspecified; F55.3 Abuse of steroids or hormones; I69.398 Other sequelae of cerebral infarction; G43.809 Other migraine, not intractable, without status migrainosus; F10.20 Alcohol dependence, uncomplicated; I10 Essential (primary) hypertension; E78.5 Hyperlipidemia, unspecified; K92.1 Melena; R11.0 Nausea; R61 Generalized hyperhidrosis; R42 Dizziness and giddiness; I25.2 Old myocardial infarction; R53.1 Weakness; R06.02 Shortness of breath; K21.9 Gastro-esophageal reflux disease without esophagitis; R10.816 Epigastric abdominal tenderness; Z87.891 Personal history of nicotine dependence; Z82.49 Family history of ischemic heart disease and other diseases of the circulatory system
CPT/HCPCS: 93005 ×3; 99285; 36415 ×3; 82553; 82550; 83690; 85025; 85027; 82272; 80048; 80053; 84484 ×2; 83036; 80061; 93306; 71045; 78451; 71275; 93010 ×2; G0378 ×4; A9500; J3490 ×6; J2270; S0164 ×2; Q9969

== ENCOUNTER 2018-10-20 10:22 | Emergency (ER) | payer SELFPAY ==
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
[2018-10-20] MEDS ORDERED: IBUPROFEN 600 MG TABLET PO ONE (11:51)
[2018-10-20] MEDS ORDERED: ACETAMINOPHEN 325 MG TABLET PO ONE (11:51)
[2018-10-20] MEDS ORDERED: AMOXICILLIN TR/POT CLAVULANATE 500-125 MG TAB PO ONE (11:54)
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
[2018-10-20 12:53] VITALS: BP 143/91
== END 2018-10-20 13:12 | disposition home or self-care (01) ==
LOC: ER 10:22
DX: S69.91XA Unspecified injury of right wrist, hand and finger(s), initial encounter (principal); M79.641 Pain in right hand; M25.521 Pain in right elbow; M25.511 Pain in right shoulder; Y04.0XXA Assault by unarmed brawl or fight, initial encounter
CPT/HCPCS: 99283; 73080; 73130; 73030; 73110; L3908

== ENCOUNTER 2020-05-12 12:31 | Emergency (ER) | payer SELFPAY ==
--- NOTE | 2020-05-12 13:56 | ER Document Report ---
ED Medical Screen (RME) - General Chief Complaint: Chest Pain > 30 Stated Complaint: HIGH BLOOD PRESSURE Time Seen by Provider: 05/12/20 13:53 Mode of Arrival: Ambulatory Information source: Patient Notes: 55-year-old male presented to ED for complaint of pressure in his head high blood pressure and chest pressure all the way across his chest worse on the left side. He states he was on blood pressure medicine a couple years ago but he stopped taking them he does not remember what he was taking. He went to [facility] today and his blood pressure was 180/110. They told him that is why his head was hurting and his chest was hurting and sent him to the emergency room. He states they did not give him any medications for his blood pressure. He states he takes a lot of ibuprofen I have informed him that this can affect his blood pressure and he probably should be using Tylenol until he gets his blood pressure under control. Will order blood urine chest protocol and he will was s een by another provider. I have greeted and performed a rapid initial assessment of this patient. A comprehensive ED assessment and evaluation of the patient, analysis of test results and completion of medical decision making process will be conducted by an additional ED providers. TRAVEL OUTSIDE OF THE [place] IN LAST 30 DAYS: No - Related Data Allergies/Adverse Reactions: diphenhydramine HCl [From Benadryl] Allergy (Severe, Verified 10/20/18 10:23) altered mental status Past Medical History - Social History Family history: Reviewed & Not Pertinent - Past Medical History Cardiac Medical History: Reports: Hx Hypercholesterolemia Denies: Hx Coronary Artery Disease, Hx Heart Attack, Hx Hypertension Pulmonary Medical History: Denies: Hx Asthma, Hx Bronchitis, Hx COPD, Hx Pneumonia Neurological Medical History: Reports: Hx Migraine. Denies: Hx Cerebrovascular Accident, Hx Seizures Renal/ Medical History: Denies: Hx Peritoneal Dialysis Musculoskeltal Medical History: Denies Hx Arthritis Past Surgical History: Reports: Hx Orthopedic Surgery - fusion in L4-5, Hx Vascular Surgery. Denies: Hx Pacemaker - Immunizations Immunizations up to date: Yes Hx Diphtheria, Pertussis, Tetanus Vaccination: Yes Physical Exam - Vital signs Vitals: Temp Pulse Resp BP Pulse Ox 97.6 F 88 16 155/108 H 98 05/12/20 12:34 05/12/20 12:34 05/12/20 12:34 05/12/20 12:34 05/12/20 12:34 Course - Vital Signs Vital signs: Temp Pulse Resp BP Pulse Ox 97.6 F 88 16 164/100 H 98 05/12/20 12:34 05/12/20 12:34 05/12/20 12:34 05/12/20 12:37 05/12/20 12:34
[2020-05-12] MEDS ORDERED: CLONIDINE HCL 0.2 MG TABLET PO ONE (14:01)
[2020-05-12] MEDS ORDERED: HYDROMORPHONE HCL INJ/PF 2 MG/ML AMPULE IV ONE (14:13)
[2020-05-12] MEDS ORDERED: ONDANSETRON HCL INJ/PF 4 MG/2 ML SDV IV ONE (14:13)
--- NOTE | 2020-05-12 14:15 | ER Document Report ---
ED Cardiac - General Chief Complaint: Chest Pain > 30 Stated Complaint: HIGH BLOOD PRESSURE Time Seen by Provider: 05/12/20 13:53 Mode of Arrival: Ambulatory Notes: ED Medical Screen (Shauna Estrada) - General Chief Complaint: Chest Pain > 30 Stated Complaint: HIGH BLOOD PRESSURE Time Seen by Provider: 05/12/20 13:53 Mode of Arrival: Ambulatory Information source: Patient Notes: 55-year-old male presented to ED for complaint of pressure in his head high blood pressure and chest pressure all the way across his chest worse on the left side. He states he was on blood pressure medicine a couple years ago but he stopped taking them he does not remember what he was taking. He went to [facility] today and his blood pressure was 180/110. They told him that is why his head was hurting and his chest was hurting and sent him to the emergency room. He states they did not give him any medications for his blood pressure. He states he takes a lot of ibuprofen I have informed him that this can affect his blood pressure and he probably should be using Tylenol until he gets his blood pressure under control. Will order blood urine chest protocol and he will was seen by another provider. MY NOTES 55-year-old male arrives with 3-day history of diffuse cephalgia 10 out of 10 headache and increased blood pressure. Pulse around 85 bpm and also patient complaining of 2 days of chest pain but worse this morning 6 out of 10. TRAVEL OUTSIDE OF THE [place] IN LAST 30 DAYS: No - Related Data Allergies/Adverse Reactions: diphenhydramine HCl [From Benadryl] Allergy (Severe, Verified 10/20/18 10:23) altered mental status Past Medical History - General Information source: Patient - Social History Smoking Status: Former Smoker - Stopped 4 months ago 2 packs/day since a teenager Cigarette use (# per day): No Chew tobacco use (# tins/day): No Smoking Education Provided: No Frequency of alcohol use: Heavy - [place] Light beer Drug Abuse: Marijuana Lives with: Family Family History: None. denies: Reviewed & Not Pertinent, Arthritis, CAD, COPD, CVA, Hyperlipidemia, Hypertension, Malignancy, Thyroid Disfunction, Other Patient has suicidal ideation: No Patient has homicidal ideation: No - Past Medical History Cardiac Medical History: Reports: Hx Hypercholesterolemia Denies: Hx Coronary Artery Disease, Hx Heart Attack, Hx Hypertension Pulmonary Medical History: Denies: Hx Asthma, Hx Bronchitis, Hx COPD, Hx Pneumonia Neurological Medical History: Reports: Hx Migraine. Denies: Hx Cerebrovascular Accident, Hx Seizures Renal/ Medical History: Denies: Hx Peritoneal Dialysis Musculoskeletal Medical History: Denies Hx Arthritis Past Surgical History: Reports: Hx Orthopedic Surgery - fusion in L4-5, Hx Vascular Surgery. Denies: Hx Pacemaker - Immunizations Immunizations up to date: Yes Hx Diphtheria, Pertussis, Tetanus Vaccination: Yes Review of Systems - Review of Systems Constitutional: No symptoms reported, Weakness EENT: See HPI, Other - Severe cephalgia Cardiovascular: See HPI, Chest pain, Palpitations, Orthopnea, Dyspnea Respiratory: No symptoms reported Gastrointestinal: No symptoms reported Genitourinary: No symptoms reported Male Genitourinary: No symptoms reported Musculoskeletal: No symptoms reported Skin: No symptoms reported Hematologic/Lymphatic: No symptoms reported Neurological/Psychological: See HPI, Weakness, Headaches -: Yes All other systems reviewed and negative Physical Exam - Vital signs Vitals: Temp Pulse Resp BP Pulse Ox 97.6 F 88 16 155/108 H 98 05/12/20 12:34 05/12/20 12:34 05/12/20 12:34 05/12/20 12:34 05/12/20 12:34 Interpretation: Normal - General General appearance: Appears well, Alert - HEENT Head: Normocephalic, Atraumatic Eyes: Normal Pupils: PERRL - Respiratory Respiratory status: No respiratory distress Chest status: Nontender Breath sounds: Normal Chest palpation: Normal - Cardiovascular Rhythm: Regular Heart sounds: Normal auscultation Murmur: No - Abdominal Inspection: Normal Distension: No distension Bowel sounds: Normal Tenderness: Nontender Organomegaly: No organomegaly - Rectal Prostate: Other - deferred - Genitourinary Scrotum: Other - deferred - Back Back: Normal, Nontender - Extremities General upper extremity: Normal inspection, Nontender, Normal color, Normal ROM, Normal temperature General lower extremity: Normal inspection, Nontender, Normal color, Normal ROM, Normal temperature, Normal weight bearing. No: Jose's sign - Neurological Neuro grossly intact: Yes Cognition: Normal Orientation: AAOx4 [place] Coma Scale Eye Opening: Spontaneous [place] Coma Scale Verbal: Oriented [place] Coma Scale Motor: Obeys Commands [place] Coma Scale Total: 15 Speech: Normal Motor strength normal: LUE, RUE, LLE, RLE Sensory: Normal - Psychological Associated symptoms: Normal affect, Normal mood - Skin Skin Temperature: Warm Skin Moisture: Dry Skin Color: Normal Course - Vital Signs Vital signs: Temp Pulse Resp BP Pulse Ox 97.6 F 78 10 L 142/83 H 95 05/12/20 12:34 05/12/20 14:40 05/12/20 16:01 05/12/20 16:01 05/12/20 16:01 - Laboratory Results Result Diagrams: 05/12/20 14:33 05/12/20 14:33 Laboratory Results Interpreted: 05/12/20 05/12/20 14:33 14:33 Lymph % (Auto) 11.8 L Seg Neutrophils % 79.0 H Total Protein 8.4 H Albumin 5.1 H Critical Laboratory Results Reviewed: Yes Attending or Supervising Physician who Reviewed Labs: NELLY DURAN JR - Radiology Results Radiology Results Interpreted: 05/12/20 16:22 Dr. Villalobos radiologist read this x-ray and CT head pressure Critical Radiology Results Reviewed: Yes Attending or Supervising Physician who Reviewed Radiology: NELLY DURAN JR Critical Care Note - Critical Care Note Comments: I discussed this case with Dr. Clarence Morel at 1630 and he advises he will arrange for patient to be seen as outpatient after [place]. Also discussed the findings with patient himself and urged him to take blood pressure medications as directed. 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 Morel. Prescriptions: Lisinopril/Hydrochlorothiazide [Lisinopril-Hctz 20-25 mg Tab] 1 each PO DAILY 30 Days #30 tablet Metoprolol Tartrate [Lopressor 25 mg Tablet] 12.5 mg PO HSP PRN 60 Days #30 tab PRN Reason: Forms: Return to Work
[2020-05-12] MEDS ORDERED: ENALAPRILAT DIHYDRATE INJ/PF 2.5 MG/2 ML SDV IV ONE (14:25)
[2020-05-12] MEDS ORDERED: LABETALOL HCL INJ 20 MG/4 ML DISP.SYRIN IV ONE (14:25)
--- NOTE | 2020-05-12 14:32 | RADIOLOGY REPORT (SQ) ---
EXAM DESCRIPTION: CT HEAD WITHOUT IMAGES COMPLETED DATE/TIME: 05/12/2020 2:19 pm REASON FOR STUDY: Blood pressure severe headache COMPARISON: None. TECHNIQUE: Axial images acquired through the brain without intravenous contrast. Images reviewed wi th bone, brain and subdural windows. Additional sagittal and coronal reconstructions were generated. Images stored on PACS. All CT scanners at this facility use dose modulation, iterative reconstruction, and/or weight based d osing when appropriate to reduce radiation dose to as low as reasonably achievable (ALARA). [facility]: Dose Right [facility]: CareDose [facility]: Dose Right [facility]: Teradose 4D [facility]: Smart SodaHead RADIATION DOSE: CT Rad equipment meets quality standard of care and radiation dose reduction techniq ues were employed. CTDIvol: 53.2 mGy. DLP: 991 mGy-cm LIMITATIONS: None. FINDINGS: VENTRICLES: Normal size and contour. The cisterns are patent. CEREBRUM: No masses. No hemorrhage. No midline shift. No evidence for acute infarction. Normal gra y/white matter differentiation. No areas of low density in the white matter. CEREBELLUM: No masses. No hemorrhage. No alteration of density. No evidence for acute infarction. EXTRAAXIAL SPACES: No fluid collections. No masses. ORBITS AND GLOBE: No intra- or extraconal masses. Normal contour of globe without masses. CALVARIUM: No fracture. PARANASAL SINUSES: No fluid or mucosal thickening. SOFT TISSUES: No mass or hematoma. OTHER: No other significant finding. IMPRESSION: 1. No acute intracranial abnormality. EVIDENCE OF ACUTE STROKE: NO COMMENT: Quality ID # [id number]: Final reports with documentation of one or more dose reduction techniques (e.g., Automated exposure control, adjustment of the mA and/or kV according to patient size, use of iterative reconstruction technique) TECHNICAL DOCUMENTATION: JOB ID: [id number] 2010 [employer]- All Rights Reserved Reading location - IP/workstation name: [email or web address]
--- NOTE | 2020-05-12 14:33 | RADIOLOGY REPORT (SQ) ---
EXAM DESCRIPTION: CHEST 2 VIEWS IMAGES COMPLETED DATE/TIME: 05/12/2020 2:24 pm REASON FOR STUDY: Chest pain headache high blood pressure COMPARISON: 03/18/2018 EXAM PARAMETERS: NUMBER OF VIEWS: two views TECHNIQUE: Digital Frontal and Lateral radiographic views of the chest acquired. RADIATION DOSE: NA LIMITATIONS: none FINDINGS: LUNGS AND PLEURA: No opacities, masses or pneumothorax. No pleural effusion. MEDIASTINUM AND HILAR STRUCTURES: No masses or contour abnormalities. HEART AND VASCULAR STRUCTURES: Heart normal size. No evidence for failure. BONES: No acute findings. HARDWARE: None in the chest. OTHER: No other significant finding. IMPRESSION: 1. No significant interval changes since the prior study dated 03/18/2018. No acute fi ndings. TECHNICAL DOCUMENTATION: JOB ID: [id number] 2010 [employer]- All Rights Reserved Reading location - IP/workstation name: [email or web address]
[2020-05-12 14:48] LABS: ABSOLUTE BASOPHILS # (AUTO) 0.1 10^3/uL (0.0-0.2); ABSOLUTE LYMPHOCYTES (AUTO) 1.2 10^3/uL (0.5-4.7); ABSOLUTE MONOCYTES (AUTO) 0.9 10^3/uL (0.1-1.4); ABSOLUTE NEUT (AUTO) 8.1 10^3/uL (1.7-8.2); BASOPHILS % (AUTO) 0.6 % (0-2); EOSINOPHILS % (AUTO) 0.2 % (0-6); HEMOGLOBIN 16.4 g/dL (13.5-17.0); LYMPHOCYTES % (AUTO) 11.8 % (13-45); MEAN CORPUSCULAR HEMOGLOBIN 32.3 pg (27.0-33.4); MEAN CORPUSCULAR HGB CONC 35.7 g/dL (32.0-36.0); MEAN CORPUSCULAR VOLUME 91 fl (80-97); MONOCYTES % (AUTO) 8.4 % (3-13); PLATELET COUNT 287 10^3/uL (150-450); RED BLOOD COUNT 5.07 10^6/uL (4.35-5.55); RED CELL DISTRIBUTION WIDTH 12.5 % (11.5-14.0); TOTAL CELLS COUNTED % (AUTO) 100 %; WHITE BLOOD COUNT 10.3 10^3/uL (4.0-10.5)
[2020-05-12 15:12] LABS: ALBUMIN 5.1 g/dL (3.5-5.0); ALKALINE PHOSPHATASE 105 U/L (38-126); ANION GAP 14 (5-19); ASPARTATE AMINO TRANSFERASE 36 U/L (17-59); BILIRUBIN,DIRECT 0.3 mg/dL (0.0-0.4); BILIRUBIN,TOTAL 0.8 mg/dL (0.2-1.3); BLOOD UREA NITROGEN 13 mg/dL (7-20); CALCIUM 10.2 mg/dL (8.4-10.2); CARBON DIOXIDE 22 mmol/L (22-30); CHLORIDE 103 mmol/L (98-107); GLUCOSE 100 mg/dL (75-110); POTASSIUM 4.8 mmol/L (3.6-5.0); TOTAL PROTEIN 8.4 g/dL (6.3-8.2)
[2020-05-12 15:24] LABS: NT PRO BNP 22 pg/mL (<125)
[2020-05-12 15:25] LABS: TROPONIN I < 0.012 ng/mL
[2020-05-12 18:09] VITALS: BP 138/99
--- NOTE | 2020-05-12 19:02 | EKG REPORT ---
SEVERITY:- NORMAL ECG - SINUS RHYTHM : Confirmed by: Kristofer Olmos MD 12-May-2020 19:01:30
== END 2020-05-12 18:10 | disposition home or self-care (01) ==
LOC: ER 12:31
DX: G43.909 Migraine, unspecified, not intractable, without status migrainosus (principal); R07.9 Chest pain, unspecified; I10 Essential (primary) hypertension; R00.2 Palpitations; R06.01 Orthopnea; R06.00 Dyspnea, unspecified; R53.1 Weakness; Z79.899 Other long term (current) drug therapy; Z88.8 Allergy status to other drugs, medicaments and biological substances; Z87.891 Personal history of nicotine dependence
CPT/HCPCS: 93005; 99285; 96374; 96375; 36415; 83735; 85025; 80053; 84484; 83880; 71046; 70450; 93010; J3490 ×2; J1170; J2405

== ENCOUNTER 2020-05-19 17:33 | Emergency (ER) | payer SELFPAY ==
--- NOTE | 2020-05-19 17:46 | EKG REPORT ---
SEVERITY:- NORMAL ECG - SINUS RHYTHM : Confirmed by: Gama Langston MD 19-May-2020 17:45:58
[2020-05-19 17:51] VITALS: BP 148/100
--- NOTE | 2020-05-19 18:09 | ER Document Report ---
ED Medical Screen (RME) - General Information source: Patient TRAVEL OUTSIDE OF THE [place] IN LAST 30 DAYS: No - Related Data Home Medications: Metoprolol, Lisinopril <NAA PEREZ - Last Filed: 05/19/20 18:08> <NELLY DURAN JR - Last Filed: 05/20/20 06:38> - General Chief Complaint: Headache Stated Complaint: HEADACHE,CHEST PAIN Time Seen by Provider: 05/19/20 18:04 Notes: Patient presents complaining of headache pain for the past 2 weeks with chest pain for the past week. Patient states that he has felt lightheaded. Patient complains of elevated blood pressure despite taking metoprolol and lisinopril for his blood pressure. Patient denies any cough cold symptoms nausea or vomiting. Patient does have a history of hypertension and previous CVA. I have greeted and performed a rapid initial assessment of this patient. A comprehensive ED assessment and evaluation of the patient, analysis of test results and completion of the medical decision making process will be conducted by additional ED providers. (NAA PEREZ) - Related Data Allergies/Adverse Reactions: diphenhydramine HCl [From Benadryl] Allergy (Severe, Verified 10/20/18 10:23) altered mental status Past Medical History - Social History Drug Abuse: Marijuana Family history: Reviewed & Not Pertinent - Past Medical History Cardiac Medical History: Reports: Hx Hypercholesterolemia Denies: Hx Coronary Artery Disease, Hx Heart Attack, Hx Hypertension Pulmonary Medical History: Denies: Hx Asthma, Hx Bronchitis, Hx COPD, Hx Pneumonia Neurological Medical History: Reports: Hx Migraine. Denies: Hx Cerebrovascular Accident, Hx Seizures Renal/ Medical History: Denies: Hx Peritoneal Dialysis Musculoskeltal Medical History: Denies Hx Arthritis Past Surgical History: Reports: Hx Orthopedic Surgery - fusion in L4-5, Hx Vascular Surgery. Denies: Hx Pacemaker - Immunizations Immunizations up to date: Yes Hx Diphtheria, Pertussis, Tetanus Vaccination: Yes <NAA PEREZ - Last Filed: 05/19/20 18:08> Physical Exam - General General appearance: Alert - Respiratory Respiratory status: No respiratory distress Chest status: Tender - Neurological Neuro grossly intact: Yes Cognition: Normal [place] Coma Scale Eye Opening: Spontaneous [place] Coma Scale Verbal: Oriented [place] Coma Scale Motor: Obeys Commands [place] Coma Scale Total: 15 <NAA PEREZ - Last Filed: 05/19/20 18:08> - Vital signs Vitals: Temp Pulse Resp BP Pulse Ox 97.9 F 102 H 22 H 148/100 H 99 05/19/20 17:49 05/19/20 17:49 05/19/20 17:49 05/19/20 17:49 05/19/20 17:49 Course - Laboratory Results Result Diagrams: 05/19/20 18:12 05/19/20 18:12 <NELLY DURAN JR - Last Filed: 05/20/20 06:38> - Vital Signs Vital signs: Temp Pulse Resp BP Pulse Ox 97.9 F 102 H 22 H 148/100 H 99 05/19/20 17:49 05/19/20 17:49 05/19/20 17:49 05/19/20 17:49 05/19/20 17:49 - Laboratory Results Laboratory Results Interpreted: 05/19/20 18:12 Sodium 136.3 L BUN 23 H Glucose 113 H Doctor's Discharge <NAA PEREZ - Last Filed: 05/19/20 18:08> <NELLY DURAN JR - Last Filed: 05/20/20 06:38> - Discharge Disposition: ELOPED
[2020-05-19 18:31] LABS: ABSOLUTE BASOPHILS # (AUTO) 0.1 10^3/uL (0.0-0.2); ABSOLUTE EOSINOPHILS # (AUTO) 0.1 10^3/uL (0.0-0.6); ABSOLUTE LYMPHOCYTES (AUTO) 2.1 10^3/uL (0.5-4.7); ABSOLUTE MONOCYTES (AUTO) 0.9 10^3/uL (0.1-1.4); ABSOLUTE NEUT (AUTO) 6.4 10^3/uL (1.7-8.2); BASOPHILS % (AUTO) 0.7 % (0-2); EOSINOPHILS % (AUTO) 0.9 % (0-6); HEMATOCRIT 45.3 % (37.9-51.0); HEMOGLOBIN 16.3 g/dL (13.5-17.0); LYMPHOCYTES % (AUTO) 22.2 % (13-45); MEAN CORPUSCULAR HEMOGLOBIN 32.7 pg (27.0-33.4); MEAN CORPUSCULAR HGB CONC 35.9 g/dL (32.0-36.0); MEAN CORPUSCULAR VOLUME 91 fl (80-97); MONOCYTES % (AUTO) 9.8 % (3-13); PLATELET COUNT 298 10^3/uL (150-450); RED BLOOD COUNT 4.98 10^6/uL (4.35-5.55); RED CELL DISTRIBUTION WIDTH 12.8 % (11.5-14.0); SEGMENTED NEUTROPHILS % (AUTO) 66.4 % (42-78); TOTAL CELLS COUNTED % (AUTO) 100 %; WHITE BLOOD COUNT 9.7 10^3/uL (4.0-10.5)
--- NOTE | 2020-05-19 18:41 | RADIOLOGY REPORT (SQ) ---
EXAM DESCRIPTION: CHEST SINGLE VIEW IMAGES COMPLETED DATE/TIME: 05/19/2020 6:24 pm REASON FOR STUDY: cp COMPARISON: 05/12/2020 EXAM PARAMETERS: NUMBER OF VIEWS: One view. TECHNIQUE: Single frontal radiographic view of the chest acquired. RADIATION DOSE: NA LIMITATIONS: None. FINDINGS: LUNGS AND PLEURA: No opacities, masses or pneumothorax. No pleural effusion. MEDIASTINUM AND HILAR STRUCTURES: No masses. Contour normal. HEART AND VASCULAR STRUCTURES: Heart normal in size. Normal vasculature. BONES: No acute findings. HARDWARE: None in the chest. OTHER: No other significant finding. IMPRESSION: NO ACUTE RADIOGRAPHIC FINDING IN THE CHEST. TECHNICAL DOCUMENTATION: JOB ID: [id number] 2010 [employer]- All Rights Reserved Reading location - IP/workstation name: [email or web address]
[2020-05-19 18:51] LABS: ALBUMIN 4.9 g/dL (3.5-5.0); ALKALINE PHOSPHATASE 82 U/L (38-126); ANION GAP 9 (5-19); ASPARTATE AMINO TRANSFERASE 32 U/L (17-59); BILIRUBIN,DIRECT 0.1 mg/dL (0.0-0.4); BILIRUBIN,TOTAL 0.6 mg/dL (0.2-1.3); BLOOD UREA NITROGEN 23 mg/dL (7-20); CALCIUM 9.5 mg/dL (8.4-10.2); CARBON DIOXIDE 28 mmol/L (22-30); CHLORIDE 99 mmol/L (98-107); GLUCOSE 113 mg/dL (75-110); POTASSIUM 4.4 mmol/L (3.6-5.0); TOTAL PROTEIN 8.2 g/dL (6.3-8.2)
[2020-05-19] MEDS ORDERED: ACETAMINOPHEN 325 MG TABLET PO ONE (21:48)
== END 2020-05-19 22:59 | disposition left against medical advice (07) ==
LOC: ER 17:33
DX: I10 Essential (primary) hypertension (principal); R07.9 Chest pain, unspecified; R51.9 Headache, unspecified; R42 Dizziness and giddiness; Z79.899 Other long term (current) drug therapy; Z86.73 Personal history of transient ischemic attack (TIA), and cerebral infarction without residual deficits; Z88.8 Allergy status to other drugs, medicaments and biological substances; Z53.20 Procedure and treatment not carried out because of patient's decision for unspecified reasons
CPT/HCPCS: 36415; 71045; 80053; 84484; 85025; 93005; 93010; 99281

== ENCOUNTER 2020-05-20 06:06 | Emergency (ER) | payer SELFPAY ==
--- NOTE | 2020-05-20 06:31 | ER Document Report ---
ED General - General Chief Complaint: Headache >24 hrs old Stated Complaint: HEAD PRESSURE,DIZZY Time Seen by Provider: 05/20/20 06:30 Mode of Arrival: Ambulatory Information source: Patient Notes: PRIOR ED NOTES on 12 May 2020 ED Medical Screen (Shauna Estrada) - General Chief Complaint: Chest Pain > 30 Stated Complaint: HIGH BLOOD PRESSURE Time Seen by Provider: 05/12/20 13:53 Mode of Arrival: Ambulatory Information source: Patient Notes: 55-year-old male presented to ED for complaint of pressure in his head high blood pressure and chest pressure all the way across his chest worse on the left side. He states he was on blood pressure medicine a couple years ago but he stopped taking them he does not remember what he was taking. He went to [facility] today and his blood pressure was 180/110. They told him that is why his head was hurting and his chest was hurting and sent him to the emergency room. He states they did not give him any medications for his blood pressure. He states he takes a lot of ibuprofen I have informed him that this can affect his blood pressure and he probably should be using Tylenol until he gets his blood pressure under control. Will order blood urine chest protocol and he will was seen by another provider. MY NOTES 55-year-old male arrives with 3-day history of diffuse cephalgia 10 out of 10 headache and increased blood pressure. Pulse around 85 bpm and also patient complaining of 2 days of chest pain but worse this morning 6 out of 10. TRAVEL OUTSIDE OF THE [place] IN LAST 30 DAYS: No 05/20/20 06:21 - ED Nursing Note by BAILEY FUENTES [facility] [place] Num: [id number] : 1965 Patient Age: 55 pt has an headache since . pt was told it is due to his HTN. pt on 05/14 was started on 2 BP meds. pt has been taking tylenol, he was told not to take ibuprofen. his last dose of tylenol was at 0550. Initialized on 05/20/20 06:21 - END OF NOTE ED Medical Screen (Jesus estrada yesterday) - General Chief Complaint: Headache Stated Complaint: HEADACHE,CHEST PAIN Time Seen by Provider: 05/19/20 18:04 Information source: Patient Notes: Patient presents complaining of headache pain for the past 2 weeks with chest pain for the past week. Patient states that he has felt lightheaded. Patient complains of elevated blood pressure despite taking metoprolol and lisinopril for his blood pressure. Patient denies any cough cold symptoms nausea or vomiting. Patient does have a history of hypertension and previous CVA. MY NOTES 55-year-old male arrives with chief complaint of headache since . Patient has been treated for his hypertension. He now is on lisinopril and metoprolol. He has been taking Tylenol for his blood pressure. He has a history of chronic migraine GERD radiculopathy of cervical musculoskeletal chest pain hyponatremia alcohol dependence hyperlipidemia. Patient points to his dorsal neck muscular area radiating to his occipital condyle as well as the top of his head is being painful. He denies any rhinorrhea sore throat nausea vomiting diarrhea skin rash. His tested -2 weeks ago but patient has not been tested for COVID-19. TRAVEL OUTSIDE OF THE [place] IN LAST 30 DAYS: No - Related Data Allergies/Adverse Reactions: diphenhydramine HCl [From [employer]] Allergy (Severe, Verified 10/20/18 10:23) altered mental status Home Medications: lisinopril/HCTZ, metoprolol Past Medical History - Social History Smoking Status: Former Smoker Family History: None. denies: Reviewed & Not Pertinent, Arthritis, CAD, COPD, CVA, Hyperlipidemia, Hypertension, Malignancy, Thyroid Disfunction, Other - Past Medical History Cardiac Medical History: Reports: Hx Hypercholesterolemia Denies: Hx Coronary Artery Disease, Hx Heart Attack, Hx Hypertension Pulmonary Medical History: Denies: Hx Asthma, Hx Bronchitis, Hx COPD, Hx Pneumonia Neurological Medical History: Reports: Hx Migraine. Denies: Hx Cerebrovascular Accident, Hx Seizures Renal/ Medical History: Denies: Hx Peritoneal Dialysis Musculoskeletal Medical History: Denies Hx Arthritis Past Surgical History: Reports: Hx Orthopedic Surgery - fusion in L4-5, Hx Vascular Surgery. Denies: Hx Pacemaker - Immunizations Immunizations up to date: Yes Hx Diphtheria, Pertussis, Tetanus Vaccination: Yes Physical Exam - Vital signs Vitals: Temp Pulse Resp BP Pulse Ox 97.5 F 94 20 124/97 H 98 05/20/20 06:13 05/20/20 06:13 05/20/20 06:13 05/20/20 06:13 05/20/20 06:13 Course - Vital Signs Vital signs: Temp Pulse Resp BP Pulse Ox 97.5 F 67 16 119/77 97 05/20/20 06:13 05/20/20 10:16 05/20/20 10:16 05/20/20 10:16 05/20/20 10:16 - Laboratory Results Critical Laboratory Results Reviewed: Yes Attending or Supervising Physician who Reviewed Labs: NELLY DURAN JR - Radiology Results Critical Radiology Results Reviewed: No Critical Results Attending or Supervising Physician who Reviewed Radiology: NELLY DURAN JR Discharge - Discharge Clinical Impression: Chronic migraine Hypertension Qualifiers: Hypertension type: unspecified Qualified Code(s): I10 - Essential (primary) hypertension EtOH dependence Qualifiers: Substance use status: unspecified alcohol-induced disorder Qualified Code(s): F10.29 - Alcohol dependence with unspecified alcohol-induced disorder Condition: Stable Disposition: HOME, SELF-CARE Additional Instructions: Follow-up with personal doctor this week; return to ER as needed for true emergencies; take medicines as directed; if headache may continue until your blood pressure is more stable. Prescriptions: Chlorzoxazone [Parafon Forte Dsc 500 Mg Tablet] 500 mg PO BID #20 tablet Cyproheptadine HCl [Periactin 4 Mg Tablet] 4 mg PO HSP PRN #20 tablet PRN Reason: Forms: Return to Work
[2020-05-20] MEDS ORDERED: KETOROLAC TROMETHAMINE 60 MG/2 ML SDV IM ONE (06:56)
[2020-05-20] MEDS ORDERED: PROMETHAZINE HCL INJ 25 MG/1 ML VIAL IM ONE (06:56)
[2020-05-20] MEDS ORDERED: OXYCODONE-ACETAMINOPHEN 5-325 MG TABLET PO ONE ×2 (07:02→11:00)
--- NOTE | 2020-05-20 09:33 | RADIOLOGY REPORT (SQ) ---
EXAM DESCRIPTION: CT CERVICAL SPINE WITHOUT IMAGES COMPLETED DATE/TIME: 05/20/2020 9:23 am REASON FOR STUDY: POPE neck pain COMPARISON: None. TECHNIQUE: Axial images acquired through the cervical spine without intravenous contrast. Images re viewed with lung, soft tissue and bone windows. Reconstructed coronal and sagittal MPR images review ed. Images stored on PACS. All CT scanners at this facility use dose modulation, iterative reconstruction, and/or weight based d osing when appropriate to reduce radiation dose to as low as reasonably achievable (ALARA). [facility]: Dose Right [facility]: CareDose [facility]: Dose Right [facility]: Teradose 4D [facility]: [employer] RADIATION DOSE: CT Rad equipment meets quality standard of care and radiation dose reduction techniq ues were employed. CTDIvol: 20.4 mGy. DLP: 527 mGy-cm. mGy. LIMITATIONS: None. FINDINGS: ALIGNMENT: Anatomic. MINERALIZATION: Normal. VERTEBRAL BODIES: No fractures or dislocation. DISCS: Disc space narrowing with small osteophytes at C3-C4. FACETS, LATERAL MASSES, POSTERIOR ELEMENTS: No fractures. No dislocation. No acute findings. Mild facet arthropathy on the left at C2-C3. HARDWARE: None in the spine. VISUALIZED RIBS: No fractures. LUNG APICES AND SOFT TISSUES: No significant or acute findings. OTHER: No other significant finding. IMPRESSION: MILD DEGENERATIVE CHANGES. NO ACUTE OR SIGNIFICANT FINDINGS IN THE CERVICAL SPINE. TECHNICAL DOCUMENTATION: JOB ID: [id number] Quality ID # [id number]: Final reports with documentation of one or more dose reduction techniques (e.g., Au tomated exposure control, adjustment of the mA and/or kV according to patient size, use of iterative reconstruction technique) 2010 [employer]- All Rights Reserved Reading location - IP/workstation name: [email or web address]
--- NOTE | 2020-05-20 09:35 | RADIOLOGY REPORT (SQ) ---
EXAM DESCRIPTION: CT HEAD WITHOUT IMAGES COMPLETED DATE/TIME: 05/20/2020 9:23 am REASON FOR STUDY: POPE neck pain COMPARISON: 05/12/2020. TECHNIQUE: Axial images acquired through the brain without intravenous contrast. Images reviewed wi th bone, brain and subdural windows. Additional sagittal and coronal reconstructions were generated. Images stored on PACS. All CT scanners at this facility use dose modulation, iterative reconstruction, and/or weight based d osing when appropriate to reduce radiation dose to as low as reasonably achievable (ALARA). [facility]: Dose Right [facility]: CareDose [facility]: Dose Right [facility]: Teradose 4D [facility]: [employer] RADIATION DOSE: CT Rad equipment meets quality standard of care and radiation dose reduction techniq ues were employed. CTDIvol: 53.2 mGy. DLP: 1097 mGy-cm. mGy. LIMITATIONS: None. FINDINGS: VENTRICLES: Normal size and contour. CEREBRUM: No masses. No hemorrhage. No midline shift. No evidence for acute infarction. Normal gra y/white matter differentiation. No areas of low density in the white matter. CEREBELLUM: No masses. No hemorrhage. No alteration of density. No evidence for acute infarction. EXTRAAXIAL SPACES: No fluid collections. No masses. ORBITS AND GLOBE: No intra- or extraconal masses. Normal contour of globe without masses. CALVARIUM: No fracture. PARANASAL SINUSES: No fluid or mucosal thickening. SOFT TISSUES: No mass or hematoma. OTHER: No other significant finding. IMPRESSION: NORMAL BRAIN CT WITHOUT CONTRAST. EVIDENCE OF ACUTE STROKE: NO. COMMENT: Quality ID # [id number]: Final reports with documentation of one or more dose reduction techniques (e.g., Automated exposure control, adjustment of the mA and/or kV according to patient size, use of iterative reconstruction technique) TECHNICAL DOCUMENTATION: JOB ID: [id number] 2010 [employer]- All Rights Reserved Reading location - IP/workstation name: [email or web address]
[2020-05-20 10:10] LABS: APPEARANCE,URINE CLEAR; BILIRUBIN,URINE NEGATIVE (NEGATIVE); COLOR,URINE YELLOW; GLUCOSE, URINE NEGATIVE (NEGATIVE); KETONES,URINE NEGATIVE (NEGATIVE); LEUKOCYTE ESTERASE,URINE NEGATIVE (NEGATIVE); NITRITE,URINE NEGATIVE (NEGATIVE); PROTEIN,URINE NEGATIVE (NEGATIVE); URINE SPECIFIC GRAVITY 1.021; UROBILINOGEN,URINE NEGATIVE mg/dL (<2.0)
[2020-05-20 10:24] LABS: URINE AMPHETAMINES SCREEN NEGATIVE; URINE BARBITURATES SCREEN NEGATIVE; URINE BENZODIAZEPINES SCREEN NEGATIVE; URINE COCAINE SCREEN NEGATIVE; URINE METHADONE SCREEN NEGATIVE; URINE PHENCYCLIDINE SCREEN NEGATIVE
[2020-05-20 10:25] LABS: URINE MARIJUANA (THC) SCREEN UNCONFIRMED POSITIVE
[2020-05-20 13:42] VITALS: BP 120/88
== END 2020-05-20 13:56 | disposition home or self-care (01) ==
LOC: ER 06:06
DX: G43.909 Migraine, unspecified, not intractable, without status migrainosus (principal); F10.29 Alcohol dependence with unspecified alcohol-induced disorder; R42 Dizziness and giddiness; I10 Essential (primary) hypertension; E78.00 Pure hypercholesterolemia, unspecified; Z98.1 Arthrodesis status
CPT/HCPCS: 99285; 96372; 87635; 81001; 80307; 70450; 72125; J1885; J2550; C9803